=== PATIENT | female | born 1990 | race Caucasian/White ===

== ENCOUNTER 2016-09-16 21:12 | Emergency (ER) | payer OTHER ==
[2016-09-16 22:03] VITALS: BMI 26.6
[2016-09-16 22:07] VITALS: BP 124/82; RESP 16; TEMP 98.9
[2016-09-16 22:11] VITALS: PULSE 92; O2SAT 98
--- NOTE | 2016-09-16 22:47 | ED PDOC ---
Arrival/HPI <Alex Bruce - Last Filed: 09/16/16 23:11> - General Historian: Patient - History of Present Illness Time/Duration: 24 hours <Jaylan Hooks - Last Filed: 09/17/16 06:58> - General Chief Complaint: Cough, Cold, Congestion Time Seen by Provider: 09/16/16 21:57 - History of Present Illness Narrative History of Present Illness (Text): 09/16/16 22:43 26 y/o female presenting with complaints of sorethroat and fever. Patient states these symptoms started yesterday. Patient took her temperature this evening and reports a fever at 101F. She took Tylenol prior to arrival. Temperature here is 99F. Patient states her children at home are ill with similar symptoms. She denies upper respiratory complaints, GI symptoms, headache or urinary changes. (Jaylan Hooks) Past Medical History - Provider Review Nursing Documentation Reviewed: Yes - Infectious Disease Hx of Infectious Diseases: None - Tetanus Immunization Tetanus Immunization: Unknown - Cardiac Hx Cardiac Disorders: No - Pulmonary Hx Asthma: Yes - Neurological Hx Migraine: Yes - HEENT Hx HEENT Disorder: No - Renal Hx Renal Disorder: Yes Hx Kidney Stones: Yes (URINARY STENT PLACED AND REMOVED) - Endocrine/Metabolic Hx Endocrine Disorders: No - Hematological/Oncological Hx Blood Transfusions: No Hx Blood Transfusion Reaction: No - Integumentary Hx Dermatological Disorder: No - Musculoskeletal/Rheumatological Hx Falls: No - Gastrointestinal Hx Gall Bladder Disease: Yes (CHOLECYSTECTOMY) Hx Pancreatitis: Yes - Genitourinary/Gynecological Hx Genitourinary Disorders: No - Psychiatric Hx Psychophysiologic Disorder: No Hx Depression: No Hx Substance Use: No - Surgical History Hx Cholecystectomy: Yes Other/Comment: renal stents - Anesthesia Hx Anesthesia: Yes Hx Anesthesia Reactions: No Hx Malignant Hyperthermia: No - Suicidal Assessment Feels Threatened In Home Enviroment: No <Jaylan Hooks - Last Filed: 09/17/16 06:58> Family/Social History - Physician Review Nursing Documentation Reviewed: Yes Family/Social History: Unknown Family HX Smoking Status: Former Smoker Hx Alcohol Use: Yes (Socially) Hx Substance Use: No Hx Substance Use Treatment: No <Jaylan Hooks - Last Filed: 09/17/16 06:58> Allergies/Home Meds <Alex Bruce - Last Filed: 09/16/16 23:11> <Jaylan Hooks - Last Filed: 09/17/16 06:58> Allergies/Adverse Reactions: Allergies No Known Allergies Allergy (Verified 12/11/15 20:14) Home Medications: Home Meds Medication Instructions Recorded Confirmed Pnv#26/Iron Poly/FA/Dha 1 cap PO DAILY 07/12/16 07/12/16 [Vitafol-One Capsule] Review of Systems - Physician Review All systems were reviewed & negative as marked: Yes - Review of Systems Constitutional: Fevers. absent: Fatigue ENT: Sore Throat. absent: Rhinorrhea Respiratory: absent: SOB, Cough, Sputum Cardiovascular: absent: Chest Pain Gastrointestinal: absent: Abdominal Pain, Diarrhea, Nausea, Vomiting <Jaylan Hooks - Last Filed: 09/17/16 06:58> Physical Exam Vital Signs Reviewed: Yes Temperature: Afebrile Blood Pressure: Normal Pulse: Regular Respiratory Rate: Normal Appearance: Positive for: Well-Appearing, Non-Toxic Pain Distress: None Mental Status: Positive for: Alert and Oriented X 3 - Systems Exam Head: Present: Atraumatic, Normocephalic Pupils: Present: PERRL Extroacular Muscles: Present: EOMI Conjunctiva: Present: Normal Mouth: Present: Moist Mucous Membranes Pharnyx: Present: ERYTHEMA. No: EXUDATE Neck: Present: Normal Range of Motion, Lymphadenopathy Respiratory/Chest: Present: Clear to Auscultation, Good Air Exchange. No: Respiratory Distress Cardiovascular: Present: Regular Rate and Rhythm, Normal S1, S2 Abdomen: Present: Tenderness, Normal Bowel Sounds. No: Distention Upper Extremity: Present: Normal Inspection, Normal ROM, NORMAL PULSES. No: Cyanosis, Edema Lower Extremity: Present: Normal Inspection, NORMAL PULSES. No: Edema, CALF TENDERNESS Neurological: Present: GCS=15, CN II-XII Intact, Speech Normal Skin: Present: Warm, Dry. No: Rashes Psychiatric: Present: Alert, Oriented x 3, Normal Insight, Normal Concentration <Jaylan Hooks - Last Filed: 09/17/16 06:58> Vital Signs Temp Pulse Resp BP Pulse Ox 09/16/16 22:57 16 98 09/16/16 22:03 98.9 F 92 H 16 124/82 98 09/16/16 22:02 98.9 F 96 H 16 124/82 95 Medical Decision Making <Alex Bruce - Last Filed: 09/16/16 23:11> <Jaylan Hokos - Last Filed: 09/17/16 06:58> ED Course and Treatment: Impression: Pt was seen and evaluated with medical technologist generalist. Pt presented complaining of sore throat and fever since yesterday. Patient notes a home temperature of 101 F and reports she took Tylenol at home. Aware and agree with HPI, clinical findings, plan, and management. Plan: -- Reassess and disposition Progress Notes: On re-evaluation, the patient well-appearing, is in no acute distress. Discussed the results and plan with the patient, who expresses understanding. Patient in agreement with plan to discharged home. Patient is stable for discharge. Patient was instructed to follow up with physician/OBGYN/clinic in 1- 2 days or return if symptoms worsen or new concerning symptoms arise. (Alex Bruce) 09/16/16 22:49 26 y/o female at 5 months presents with pharyngitis. Patient is currently afebrile. She plans to f/u with her OB tomorrow. Will prescribe Amoxicillin 500mg q12 as empiric coverage for possible bacterial pharyngitis. Patient is advised to continue taking Tylenol as needed for fever and body aches. She will see her OB tomorrow for further evaluation. (Jaylan Hooks) - PA / PAEDIATRIC SURGEON / Resident Statement CARLOS has reviewed & agrees with the documentation as recorded. / has examined the patient and agrees with the treatment plan. <Alex Bruce - Last Filed: 09/16/16 23:11> Disposition/Present on Arrival <Alex Bruce - Last Filed: 09/16/16 23:11> - Present on Arrival Any Indicators Present on Arrival: No History of DVT/PE: No History of Uncontrolled Diabetes: No Urinary Catheter: No History of Decub. Ulcer: No History Surgical Site Infection Following: None - Disposition Have Diagnosis and Disposition been Completed?: Yes Disposition Time: 23:50 Patient Plan: Discharge <Jaylan Hooks - Last Filed: 09/17/16 06:58> - Disposition Diagnosis: Pharyngitis Disposition: HOME/ ROUTINE Patient Problems: Current Active Problems Problem Status Diagnosed Intractable abdominal pain Acute Condition: GOOD Discharge Instructions (ExitCare): Pharyngitis (ED) Additional Instructions: Please see your OB as soon as possible for routine care as well as for evaluation of current symptoms. Continue taking Tylenol every 6 hours as needed for fever, chills and body aches. You are prescribed an antibiotic called Amoxicillin which is safe in . Take this twice daily for 7 days. Consult your OB to see if he/she would like you to continue this medication. Prescriptions: Amoxicillin 500 mg PO Q12H #14 tablet
== END 2016-09-16 22:58 | disposition home or self-care (01) ==
LOC: ED 21:12
DX: J02.9 Acute pharyngitis, unspecified (principal)

== ENCOUNTER 2017-05-23 15:58 | Inpatient (IN) | payer OTHER ==
[2017-05-23 15:59] VITALS: BMI 26.6
--- NOTE | 2017-05-23 16:30 | ED PDOC ---
Arrival/HPI - General Chief Complaint: Weakness/Neurological Deficit Time Seen by Provider: 05/23/17 16:14 Historian: Patient - History of Present Illness Narrative History of Present Illness (Text): 05/23/17 16:26 A 27 year old female whose past medical history includes migraine headache, presents to the emergency department with 3 day duration right sided facial drooping and weakness. She also notes that she is experiencing a headache. The patient states that she has experienced these symptoms in that past, however it took her 6 months for the symptoms to resolve. The patient denies fevers, chills, dizziness, chest pain, shortness of breath, dyspnea on exertion, cough, abdominal pain, nausea, vomiting, diarrhea, back pain, neck pain, urinary/bowel changes, or any other complaint. D: [facility] Past Medical History - Provider Review Nursing Documentation Reviewed: Yes - Infectious Disease Hx of Infectious Diseases: None - Tetanus Immunization Tetanus Immunization: Unknown - Cardiac Hx Cardiac Disorders: No - Pulmonary Hx Asthma: Yes - Neurological Hx Migraine: Yes - HEENT Hx HEENT Disorder: No - Renal Hx Renal Disorder: Yes Hx Kidney Stones: Yes (URINARY STENT PLACED AND REMOVED) - Endocrine/Metabolic Hx Endocrine Disorders: No - Hematological/Oncological Hx Blood Disorders: No - Integumentary Hx Dermatological Disorder: No - Musculoskeletal/Rheumatological Hx Musculoskeletal Disorders: No - Gastrointestinal Hx Gall Bladder Disease: Yes (CHOLECYSTECTOMY) Hx Pancreatitis: Yes - Genitourinary/Gynecological Hx Genitourinary Disorders: No - Psychiatric Hx Psychophysiologic Disorder: No Hx Depression: No Hx Substance Use: No - Surgical History Hx Cholecystectomy: Yes Other/Comment: renal stents - Anesthesia Hx Anesthesia: Yes - Suicidal Assessment Feels Threatened In Home Enviroment: No Family/Social History - Physician Review Nursing Documentation Reviewed: Yes Family/Social History: No Known Family HX Smoking Status: Former Smoker Hx Alcohol Use: No (Socially) Hx Substance Use: No Hx Substance Use Treatment: No Allergies/Home Meds Allergies/Adverse Reactions: Allergies No Known Allergies Allergy (Verified 05/23/17 15:59) Home Medications: Home Meds Medication Instructions Recorded Confirmed No Known Home Med 05/23/17 05/23/17 Review of Systems - Physician Review All systems were reviewed & negative as marked: Yes Physical Exam Vital Signs Temp Pulse Resp BP Pulse Ox 05/23/17 16:01 99.1 F 94 H 16 122/83 100 Finger Stick Blood Glucose: 103 Medical Decision Making - RAD Interpretation Radiology Orders: 05/23/17 16:27 HEAD W/O (CODE STROKE) [CT] Stat Disposition/Present on Arrival - Present on Arrival History of DVT/PE: No History of Uncontrolled Diabetes: No Urinary Catheter: No History of Decub. Ulcer: No History Surgical Site Infection Following: None - Disposition Forms: [employer] (Czech)
--- NOTE | 2017-05-23 16:33 | ED PDOC ---
Arrival/HPI - General Chief Complaint: Weakness/Neurological Deficit Time Seen by Provider: 05/23/17 16:14 - History of Present Illness Narrative History of Present Illness (Text): 27yoF, hx of migraines who has had numbness/weakness symptoms in the past which took 6 mo to resolve, now with 3 days of migraine headache, right eye blurry vision/facial weakness/drooling/right sided upper/lower extremity weakness with associated photosensitivity. no n/v/dizziness/sob/chest pain/abd pain/pain with urination/drug use/thoughts to harm herself or others or hallucinations. 05/23/17 16:30 Past Medical History - Provider Review Nursing Documentation Reviewed: Yes - Travel History Have you recently traveled outside [place] w/in the past 3 mons?: No - Infectious Disease Hx of Infectious Diseases: None - Tetanus Immunization Tetanus Immunization: Unknown - Cardiac Hx Cardiac Disorders: No - Pulmonary Hx Asthma: Yes - Neurological Hx Migraine: Yes - HEENT Hx HEENT Disorder: No - Renal Hx Renal Disorder: Yes Hx Kidney Stones: Yes (URINARY STENT PLACED AND REMOVED) - Endocrine/Metabolic Hx Endocrine Disorders: No - Hematological/Oncological Hx Blood Disorders: No - Integumentary Hx Dermatological Disorder: No - Musculoskeletal/Rheumatological Hx Musculoskeletal Disorders: No - Gastrointestinal Hx Gall Bladder Disease: Yes (CHOLECYSTECTOMY) Hx Pancreatitis: Yes - Genitourinary/Gynecological Hx Genitourinary Disorders: No - Psychiatric Hx Psychophysiologic Disorder: No Hx Depression: No Hx Substance Use: No - Surgical History Hx Cholecystectomy: Yes Other/Comment: renal stents - Anesthesia Hx Anesthesia: Yes - Suicidal Assessment Feels Threatened In Home Enviroment: No Family/Social History Family/Social History: No Known Family HX Smoking Status: Former Smoker Hx Alcohol Use: No (Socially) Hx Substance Use: No Hx Substance Use Treatment: No Allergies/Home Meds Allergies/Adverse Reactions: Allergies No Known Allergies Allergy (Verified 05/23/17 15:59) Home Medications: Home Meds Medication Instructions Recorded Confirmed No Known Home Med 05/23/17 05/23/17 Review of Systems - Review of Systems Constitutional: Fatigue Eyes: Vision Changes, Photophobia ENT: Normal Respiratory: Normal Cardiovascular: Normal Gastrointestinal: Normal Genitourinary Female: Normal Musculoskeletal: Normal Skin: Normal Neurological: Headache, Focal Weakness, Speech Changes, Facial Droop Endocrine: Normal Hemo/Lymphatic: Normal Psychiatric: Normal Physical Exam Vital Signs Reviewed: Yes Vital Signs Temp Pulse Resp BP Pulse Ox 05/23/17 17:59 85 18 139/75 100 05/23/17 17:57 103 H 18 118/75 100 05/23/17 16:01 99.1 F 94 H 16 122/83 100 Temperature: Afebrile Blood Pressure: Normal Pulse: Regular Respiratory Rate: Normal Appearance: Positive for: Well-Appearing Pain Distress: None Mental Status: Positive for: Alert and Oriented X 3 Finger Stick Blood Glucose: 103 - Systems Exam Head: Present: Atraumatic, Normocephalic Pupils: Present: PERRL Extroacular Muscles: Present: EOMI Conjunctiva: Present: Normal Ears: Present: Normal Mouth: Present: Moist Mucous Membranes Pharnyx: Present: Normal Nose (External): Present: Atraumatic Nose (Internal): Present: Normal Inspection Neck: Present: Normal Range of Motion Respiratory/Chest: Present: Clear to Auscultation, Good Air Exchange Cardiovascular: Present: Regular Rate and Rhythm Abdomen: No: Tenderness, Distention, Normal Bowel Sounds, Peritoneal Signs, Rebound, Guarding, McBurney's Point Tender, Rovsing's Sign Present, Hernias, Feeding Tubes, Ostomy Tubes, Mass/Organomegaly, Scars, Other Back: Present: Normal Inspection Upper Extremity: Present: Other (see neuro) Lower Extremity: Present: Normal ROM, Other (see neuro) Neurological: Present: GCS=15, Other (right eye blurry, facial droop, drooling, right sided ue/le weakness vs left. wrinkles forhead on left.) Skin: Present: Warm, Normal Color Psychiatric: Present: Alert, Oriented x 3, Normal Insight, Normal Concentration Medical Decision Making ED Course and Treatment: CT head no acute ICH. left frontal lesion. 05/23/17 18:16 05/23/17 18:16 05/23/17 18:17: paged neurology CT HEAD WITHOUT CONTRAST. Creator : Celestine Womack MD Report Date : 05/23/2017 18:01:51 IMPRESSION: No acute intracranial hemorrhage. There is a elliptical shaped area of low attenuation in the left mid frontal subcortical white matter near the vertex that is not felt to represent artifact. Rule out acute infarct. See above discussion for additional diagnostic considerations including a demyelinating disease recommend further follow-up pre and post-contrast MRI of the brain. Note that these findings were discussed with Dr. Muñoz at approximately 5:55 p.m. with written down and read back verification. See above discussion for additional details and findings. 05/23/17 18:31 d/w Dr. Briggs neurology who stated admit, mri, give asprin 325mg. 05/23/17 19:48 d/w Dr. Medeiros who stated he doesn't see pt regularly can can admit to medical service thus discussed with Dr. Burgos who will admit telemetry and plan mri with dr. cummings neurology consultation. - Lab Interpretations Lab Results: 05/23/17 16:30 05/23/17 16:30 Lab Results 05/23/17 16:30: Beta HCG, Quant < 2.39 05/23/17 16:30: Blood Type B POSITIVE, Antibody Screen Negative, BBK History Checked Patient has bt 05/23/17 16:30: Sodium 141, Potassium 3.9, Chloride 106, Carbon Dioxide 23, Anion Gap 16, BUN 15, Creatinine 1.0, Est GFR ( Amer) > 60, Est GFR (Non- Af Amer) > 60, Random Glucose 82, Calcium 9.6, Total Bilirubin 0.3, AST 28, ALT 18, Alkaline Phosphatase 73, Troponin I < 0.01, Total Protein 8.3, Albumin 4.6, Globulin 3.6, Albumin/Globulin Ratio 1.3, Triglycerides 81, Cholesterol 140, LDL Cholesterol Direct 62, HDL Cholesterol 55 05/23/17 16:30: PT 14.9 H, INR 1.36 H, APTT 31.4 05/23/17 16:30: WBC 10.4, RBC 4.31, Hgb 10.8 L, Hct 34.3 L, MCV 79.6 L, MCH 25.1 , MCHC 31.5, RDW 14.1, Plt Count 413, MPV 9.1, Gran % 63.0, Lymph % (Auto) 25.5 , [place] % (Auto) 8.0 H, Eos % (Auto) 3.1, Baso % (Auto) 0.4, Gran # 6.59 H, Lymph # 2.7, [place] # 0.8 H, Eos # 0.3, Baso # 0.04 - RAD Interpretation Radiology Orders: 05/23/17 16:27 HEAD W/O CONTRAST [CT] Stat - EKG Interpretation EKG Interpretation (Text): 05/23/17 16:37 ECG: NSR, flipped t waves avr, v1, flattened iii. Interpreted by ED Physician: Yes - Medication Orders Current Medication Orders: Discontinued Medications Aspirin (Aspirin) 325 mg PO STAT STA Stop: 05/23/17 18:34 Last Admin: 05/23/17 18:54 Dose: 325 mg Morphine Sulfate (Morphine) 2 mg IVP STAT STA Stop: 05/23/17 17:05 Last Admin: 05/23/17 17:12 Dose: 2 mg MAR Pain Assessment Document 05/23/17 17:12 EW (Rec: 05/23/17 17:13 [facility] [id number]) Pain Reassessment Is this a pain reassessment? No Sleep Is patient sleeping during reassessment? No Presence of Pain Presence of Pain Yes Pain Scale Used Pain Scale Used Numeric Location Pain Location Body Water Pollution Scientist Description Description Constant Intensity of Pain at present 7 IVP Administration Document 05/23/17 17:12 EW (Rec: 05/23/17 17:13 [facility] [id number]) Charges for Administration # of IVP Administrations 1 Ondansetron HCl (Zofran Inj) 4 mg IVP STAT STA Stop: 05/23/17 17:05 Last Admin: 05/23/17 17:12 Dose: 4 mg IVP Administration Document 05/23/17 17:12 EWO (Rec: 05/23/17 17:12 [facility] [id number]) Charges for Administration # of IVP Administrations 1 NIHSS Stroke Scale 3 - Date/Time Evaluation Performed Date Performed: 05/23/17 Time Performed: 04:20 When Was NIHSS Performed: 24 hours post onset S/S - How Severe is the Stroke Level of Consciousness: 0=Alert LOC to Questions: 0=Both comments correct LOC to commands: 0=Obeys both correctly Best Gaze: 0=Normal Visual: 1=Partial hemianopia Facial: 1=Minor asymmetry Motor Arm - Left: 0=No drift Motor Arm - Right: 1=Drift noted before 10 sec Motor Leg - Left: 0=No drift Motor Leg - Right: 1=Drift before 5 sec Limb Ataxia: 1=Present Upper or Lower Sensory: 1=Mild to moderate loss Best Language: 0=No aphasia Dysarthia: 1=Mild to moderate slurring Extinction & Inattention (Neglect): 1=Partial neglect (mild bijal-attention) Score: 8 Disposition/Present on Arrival - Present on Arrival Any Indicators Present on Arrival: Yes History of DVT/PE: No History of Uncontrolled Diabetes: No Urinary Catheter: No History of Decub. Ulcer: No History Surgical Site Infection Following: None - Disposition Have Diagnosis and Disposition been Completed?: Yes Diagnosis: Weakness Disposition: HOSPITALIZED Disposition Time: 19:54 Patient Plan: Admission, Telemetry Condition: STABLE Discharge Instructions (ExitCare): Weakness (ED) Referrals: PCP,NO [Primary Care Provider] - Follow up with primary Forms: [employer] (Upper Sorbian)
[2017-05-23 16:42] LABS: BASO # 0.04 K/mm3 (0.0-2.0); BASO % 0.4 % (0.0-3.0); EOS # 0.3 (0.0-0.7); EOS % 3.1 % (1.5-5.0); GRAN # 6.59 (1.4-6.5); HEMATOCRIT 34.3 % (36.0-48.0); LYMPH # 2.7 (1.2-3.4); LYMPH % 25.5 % (22.0-35.0); MEAN CELL VOLUME 79.6 fl (80.0-105.0); MEAN CORPUSCULAR HEMOGLOBIN 25.1 pg (25.0-35.0); MEAN CORPUSCULAR HGB CONC 31.5 g/dl (31.0-37.0); MEAN PLATELET VOLUME 9.1 fl (7.0-11.0); MONO # 0.8 (0.1-0.6); RED CELL DISTRIBUTION WIDTH 14.1 % (11.5-14.5); WHITE BLOOD COUNT 10.4 10^3/ul (4.5-11.0)
[2017-05-23 16:52] LABS: INR 1.36 (0.93-1.08); PARTIAL THROMBOPLASTIN TIME 31.4 Seconds (25.1-36.5)
[2017-05-23] MEDS ORDERED: Morphine 2 mg/ml ISec IVP STA (17:04)
[2017-05-23 17:09] LABS: ALB/GLOB RATIO 1.3 (1.1-1.8); ALKALINE PHOSPHATASE 73 U/L (38-126); ALT/SGPT 18 U/L (7-56); AST/SGOT 28 U/L (14-36); BILIRUBIN,TOTAL 0.3 mg/dL (0.2-1.3); BLOOD UREA NITROGEN 15 mg/dL (7-21); CALCIUM 9.6 mg/dL (8.4-10.5); CARBON DIOXIDE 23 mmol/L (21-33); CHLORIDE 106 mmol/L (98-107); CHOLESTEROL 140 mg/dL (130-200); GFR AFRICAN-AMERICAN > 60; GLUCOSE,RANDOM 82 mg/dL (70-110); POTASSIUM 3.9 mmol/L (3.6-5.0); SODIUM 141 mmol/L (132-148); TOTAL PROTEIN 8.3 g/dL (5.8-8.3)
[2017-05-23 17:23] LABS: TROPONIN I < 0.01 ng/mL
--- NOTE | 2017-05-23 18:05 | CT ---
PROCEDURE: CT HEAD WITHOUT CONTRAST. HISTORY: 27 yo F, with right sided weakness COMPARISON: None available. TECHNIQUE: Axial computed tomography images were obtained through the head/brain without intravenous contrast. Radiation dose: Total exam DLP = 726.57 mGy-cm. This CT exam was performed using one or more of the following dose reduction techniques: Automated exposure control, adjustment of the mA and/or kV according to patient size, and/or use of iterative reconstruction technique. FINDINGS: HEMORRHAGE: No acute parenchymal, subarachnoid or extra-axial in intracranial hemorrhage. BRAIN: There is a vague area of low attenuation seen in the left frontal subcortical and the slightly deeper white matter which is of uncertain etiology though not felt to represent artifact. Rule out acute infarct however other etiologies such as post infectious/ inflammatory process including, encephalitis or demyelinating disease process to be excluded. Tumor would be less likely though not completely excluded. . Follow-up pre and post-contrast MRI of the brain recommended. There are no other definitive focal areas of abnormal attenuation seen throughout the remainder of the substance of the brain. Note also made of a tiny curvilinear radiopaque density in the left anterior frontal region seen on axial image # 28 that could represent artifact the possibility of a small developmental venous anomaly not excluded. Ventricular and sulcal size are within range of normal this patient's stated age. VENTRICLES: No obstructive hydrocephalus. CALVARIUM: There are no acute calvarial fractures. PARANASAL SINUSES: The visualized paranasal air complexes well-developed and currently well-aerated. MASTOID AIR CELLS: Unremarkable as visualized. No inflammatory changes. OTHER FINDINGS: None. IMPRESSION: No acute intracranial hemorrhage. There is a elliptical shaped area of low attenuation in the left mid frontal subcortical white matter near the vertex that is not felt to represent artifact. Rule out acute infarct. See above discussion for additional diagnostic considerations including a demyelinating disease recommend further follow-up pre and post-contrast MRI of the brain. Note that these findings were discussed with Dr. Muñoz at approximately 5:55 p.m. with written down and read back verification. See above discussion for additional details and findings. .
[2017-05-24] MEDS: Morphine 2 mg/ml ISec IVP PRN ×5 (05:18→23:40)
[2017-05-24 08:14] LABS: BASO # 0.05 K/mm3 (0.0-2.0); BASO % 0.5 % (0.0-3.0); EOS # 0.5 (0.0-0.7); EOS % 5.3 % (1.5-5.0); GRAN # 5.91 (1.4-6.5); GRAN % 64.4 % (50.0-68.0); HEMATOCRIT 32.4 % (36.0-48.0); MEAN CELL VOLUME 79.8 fl (80.0-105.0); MEAN CORPUSCULAR HEMOGLOBIN 24.6 pg (25.0-35.0); MEAN CORPUSCULAR HGB CONC 30.9 g/dl (31.0-37.0); MEAN PLATELET VOLUME 9.1 fl (7.0-11.0); MONO # 0.7 (0.1-0.6); MONO % 7.8 % (1.0-6.0); RED CELL DISTRIBUTION WIDTH 14.2 % (11.5-14.5); WHITE BLOOD COUNT 9.2 10^3/ul (4.5-11.0)
[2017-05-24 08:42] LABS: BLOOD UREA NITROGEN 12 mg/dL (7-21); CARBON DIOXIDE 23 mmol/L (21-33); CHLORIDE 109 mmol/L (98-107); GFR AFRICAN-AMERICAN > 60; GLUCOSE,RANDOM 88 mg/dL (70-110); POTASSIUM 4.1 mmol/L (3.6-5.0); SODIUM 140 mmol/L (132-148)
--- NOTE | 2017-05-24 11:59 | CP.PCM.HP ---
History of Present Illness - History of Present Illness History of Present Illness: CC: Slurred Speech and Right sided Weakness and Nubness: History of Present Illness: A 27yoF, hx of migraines who has had numbness/weakness symptoms in the past which took 6 mo to resolve, now with 3 days of migraine headache, right eye blurry vision/facial weakness/drooling/right sided upper/lower extremity weakness with associated photosensitivity. No n/v/dizziness/sob/chest pain/abd pain/pain with urination/drug use/thoughts to harm herself or others or hallucinations. Present on Admission - Present on Admission Any Indicators Present on Admission: No Review of Systems - Review of Systems All systems: reviewed and no additional remarkable complaints except Past Patient History - Infectious Disease Hx of Infectious Diseases: None - Tetanus Immunizations Tetanus Immunization: Unknown - Past Medical History & Family History Past Medical History?: Yes Pertinent Family History: Grand Mother - Possible CVA - Past Social History Smoking Status: Former Smoker Alcohol: None Drugs: Denies - CARDIAC Hx Cardiac Disorders: No - PULMONARY Hx Respiratory Disorders: Yes Hx Asthma: Yes - NEUROLOGICAL Hx Migraine: Yes - HEENT Hx HEENT Problems: No - RENAL Hx Chronic Kidney Disease: Yes (renal stent) - ENDOCRINE/METABOLIC Hx Endocrine Disorders: No - HEMATOLOGICAL/ONCOLOGICAL Hx Blood Disorders: No - INTEGUMENTARY Hx Dermatological Problems: No - MUSCULOSKELETAL/RHEUMATOLOGICAL Hx Falls: No - GASTROINTESTINAL Hx Gastrointestinal Disorders: Yes Hx Gastroesophageal Reflux: Yes Hx Pancreatitis: Yes - GENITOURINARY/GYNECOLOGICAL Hx Genitourinary Disorders: No - PSYCHIATRIC Hx Anxiety: Yes - SURGICAL HISTORY Hx Cholecystectomy: Yes - ANESTHESIA Hx Anesthesia: Yes Meds Allergies/Adverse Reactions: Allergies Allergy/AdvReac Type Severity Reaction Status Date / Time No Known Allergies Allergy Verified 05/23/17 15:59 Physical Exam - Constitutional Appears: Well, No Acute Distress - Head Exam Head Exam: ATRAUMATIC, NORMAL INSPECTION, NORMOCEPHALIC - Eye Exam Eye Exam: EOMI, Normal appearance, PERRL Pupil Exam: NORMAL ACCOMODATION, PERRL Additional comments: Right eye Blurry Vison - ENT Exam ENT Exam: Mucous Membranes Moist, Normal Exam - Neck Exam Neck exam: Positive for: Normal Inspection - Respiratory Exam Respiratory Exam: Clear to Auscultation Bilateral, NORMAL BREATHING PATTERN - Cardiovascular Exam Cardiovascular Exam: REGULAR RHYTHM, +S1, +S2 - GI/Abdominal Exam GI & Abdominal Exam: Normal Bowel Sounds, Soft. absent: Tenderness - Extremities Exam Extremities exam: Positive for: full ROM, normal capillary refill, normal inspection - Back Exam Back exam: FULL ROM, NORMAL INSPECTION. absent: CVA tenderness (L), CVA tenderness (R) - Neurological Exam Neurological exam: Alert, Motor Sensory Deficit, Oriented x3, Reflexes Normal Additional comments: Right VII Palsy Right UE 3-4/5, and Right LE 4/5 with Loss of Sensation to the Right UE. - Psychiatric Exam Psychiatric exam: Normal Affect, Normal Mood - Skin Skin Exam: Dry, Intact, Normal Color, Warm Results - Vital Signs Recent Vital Signs: Last Vital Signs Temp 98.6 F 05/24/17 06:00 Pulse 73 05/24/17 06:00 Resp 18 05/24/17 06:00 BP 100/64 05/24/17 06:00 Pulse Ox 97 05/24/17 06:00 - Labs Result Diagrams: 05/24/17 07:30 05/24/17 07:30 Labs: Laboratory Results - last 24 hr 05/24/17 05/24/17 07:30 07:30 WBC 9.2 RBC 4.06 Hgb 10.0 L Hct 32.4 L MCV 79.8 L MCH 24.6 L MCHC 30.9 L RDW 14.2 Plt Count 380 MPV 9.1 Gran % 64.4 Lymph % (Auto) 22.0 Stewart % (Auto) 7.8 H Eos % (Auto) 5.3 H Baso % (Auto) 0.5 Gran # 5.91 Lymph # 2.0 Stewart # 0.7 H Eos # 0.5 Baso # 0.05 Sodium 140 Potassium 4.1 Chloride 109 H Carbon Dioxide 23 Anion Gap 13 BUN 12 Creatinine 0.9 Est GFR ( Amer) > 60 Est GFR (Non-Af Amer) > 60 Random Glucose 88 Calcium 9.0 - Imaging and Cardiology CT scan - head Status: Report reviewed by me Additional comment: IMPRESSION: No acute intracranial hemorrhage. There is a elliptical shaped area of low attenuation in the left mid frontal subcortical white matter near the vertex that is not felt to represent artifact. Rule out acute infarct. See above discussion for additional diagnostic considerations including a demyelinating disease recommend further follow-up pre and post-contrast MRI of the brain. Note that these findings were discussed with Dr. Muñoz at approximately 5:55 p.m. with written down and read back verification. Assessment & Plan (1) Hemiparesis Assessment and Plan: Due to MS Vs CVA Vs Complicated Migraine Blurry Vision R/O Optic Neuritis H/O Similar Episode in the Past Continue ASA MRI Brain with/Without IV Contrast Carotid Doppler and TTE Neurocheck Neurology Consulted Status: Acute Priority: High
[2017-05-24] MEDS ORDERED: Gadodiamide 287 MG/ML VIAL (15ML) IV ONE (12:57)
--- NOTE | 2017-05-24 15:13 | MRI ---
PROCEDURE: MRI brain dated 05/24/2017 HISTORY: Right hemiparesis. COMPARISON: Comparison made with prior CT scan brain dated 05/23/2017. TECHNIQUE: Multi planar,, multisequence MR images of the brain were obtained with and without intravenous contrast enhancement. . FINDINGS: No acute parenchymal, subarachnoid or extra-axial hemorrhage. There are multiple on focal areas most of which are located within the most of the periventricular and deep white matter of left cerebral hemisphere with a more discrete area of restricted diffusion in the left posterior superior frontal subcortical region near the vertex. . Less numerous faint foci of restricted diffusion also seen within the white matter right cerebral hemisphere. Additionally, few faint areas of increased T2 signal are present within both basal nuclei, old right cerebellar and left middle cerebellar peduncle. . Findings may in part represent shine through type artifact. These lesions are consistent with a demyelinating disease process such as multiple sclerosis. The largest lesion in the left posterior superior frontal subcortical white matter exhibits incomplete irregular peripheral rim enhancement consistent with a tumefactive plaque. Several additional smaller lesions in the deep white matter left cerebral hemisphere also exhibit incomplete peripheral thin rim enhancement as well consistent with active demyelination. . Note also that several lesions bilaterally exhibit T1 black hole appearance. No evidence of abnormal meningeal enhancement. No obstructive hydrocephalus. Visualized major vascular flow voids at skull base patent. No gross calvarial abnormalities The visualized paranasal and mastoid air complexes well-developed and currently well-aerated. IMPRESSION: Findings are consistent with multiple sclerosis. The largest lesion located in the left posterior superior frontal subcortical white matter exhibits incomplete irregular peripheral rim enhancement consistent with a tumefactive MS plaque. Several additional smaller lesions in the deep white matter left cerebral hemisphere also exhibit incomplete peripheral thin rim enhancement as well consistent with active demyelination. . Lesions in the right cerebral hemisphere none demonstrate no discernible contrast enhancement. Few nonenhancing lesions both basal nuclei, right cerebellum and left middle cerebellar peduncle The note also that the several of these lesions on bilaterally exhibit T1 black hole appearance. Findings on discussed with Dr Burgos at approximately 2:50 p.m. with written down and back verification.
[2017-05-24] MEDS: methylPREDNISolone 1 GM in Sodium Chloride 0.9% 250 ML IV SCH (18:00)
--- NOTE | 2017-05-24 20:08 | CARD ---
APPROVED REPORT EKG Measurement Heart [id number] <Conclusion> Normal sinus rhythm Minimal voltage criteria for LVH, may be normal variant Borderline ECG
--- NOTE | 2017-05-25 01:31 | CON ---
DATE: 05/24/2017 HISTORY OF PRESENT ILLNESS: This is a 27-year-old female with past medical history of migraine headaches, came with slurring of the speech and numbness of the right side of the face and headaches. The patient has migraine headache of 3 days and right eye blurring of vision associated with photosensitivity. No nausea, no vomiting. Called to evaluate the patient. PAST MEDICAL HISTORY: As above, status post stents in the kidney because of the renal stone, also GERD, and anxiety. ALLERGIES: NO KNOWN DRUG ALLERGIES. PHYSICAL EXAMINATION HEENT: Normocephalic, atraumatic. NECK: Supple. NEUROLOGIC: Alert, awake, and oriented x3. No aphasia. Cranial nerves II through XII are tested. Pupils equal and reactive. EOM intact. Visual gonsalez, full. No facial asymmetry. Tongue is midline. Motor examination: Moves all the extremities equally. Tone normal. Deep tendon reflexes 1+. Both plantars are downgoing. Sensory appears intact. Cerebellar and gait, deferred. IMPRESSION: Possibly migraine headache. Headache is under control, and workup is in progress. Patient had an MRI. We will follow up the results. Christoph Boston MD
[2017-05-25] MEDS: Morphine 2 mg/ml ISec IVP PRN ×4 (03:16→20:22)
[2017-05-25] MEDS: Enoxaparin 40 mg Syringe SC SCH ×2 (08:37→10:18)
--- NOTE | 2017-05-25 13:15 | US ---
PROCEDURE: Bilateral carotid artery duplex ultrasound HISTORY: Carotid stenosis CVA PHYSICIAN(S): Raymundo Ulloa MD. TECHNIQUE: Duplex sonography and color-flow Doppler were used to evaluate the carotid bifurcations and limited segments of the vertebral arteries bilaterally. FINDINGS: There is minimal intimal thickening noted at the carotid bifurcations bilaterally. The peak systolic velocity in the proximal right internal carotid artery is 75 cm/sec. This corresponds to a 0-19 percent proximal right ICA stenosis. Normal systolic velocities are noted in the proximal right external carotid artery. There is antegrade flow in the right vertebral artery. The peak systolic velocity in the proximal left internal carotid artery is 92 cm/sec. This corresponds to a 0-19 percent proximal left ICA stenosis. Normal systolic velocities are noted in the proximal left external carotid artery. There is antegrade flow in the left vertebral artery. IMPRESSION: 1. Bilateral 0-19 percent proximal ICA stenoses. 2. Antegrade flow in both vertebral arteries.
--- NOTE | 2017-05-25 14:03 | CARD ---
APPROVED REPORT EKG Measurement Heart [id number] <Conclusion> Sinus tachycardia Moderate voltage criteria for LVH, may be normal variant Borderline ECG
--- NOTE | 2017-05-25 14:20 | CP.PCM.PN ---
<Lyudmila Walsh - Last Filed: 05/25/17 17:51> Subjective - Date & Time of Evaluation Date of Evaluation: 05/25/17 Time of Evaluation: 09:00 - Subjective Subjective: PGY-2 Neurology progress note for Dr. Boston'ss ervice Patient seen and examined at bedside, no acute distress. Patient states that she continues to have numbness onthe left side of her face and in her left arm. She states she also continues to have a headache. Objective - Vital Signs/Intake and Output Vital Signs (last 24 hours): Temp Pulse Resp BP Pulse Ox 98.3 F 99 H 20 117/60 96 05/25/17 13:39 05/25/17 13:39 05/25/17 13:39 05/25/17 13:39 05/25/17 06:00 Intake and Output: 05/25/17 05/25/17 06:59 18:59 Intake Total 360 240 Output Total 1500 Balance -1140 240 - Medications Medications: Current Medications Aspirin (Aspirin) 325 mg PO DAILY [facility] Last Admin: 05/25/17 08:41 Dose: 325 mg Enoxaparin Sodium (Lovenox) 40 mg SC DAILY [facility] PRN Reason: Protocol Last Admin: 05/25/17 08:37 Dose: 40 mg Methylprednisolone 1 gm/ (Sodium Chloride) 250 mls @ 500 mls/hr IV DAILY [facility] Stop: 05/26/17 10:29 Last Admin: 05/24/17 18:00 Dose: 500 mls/hr Ketorolac Tromethamine (Toradol) 15 mg IM Q6 PRN PRN Reason: Pain, moderate (4-7) Stop: 05/29/17 00:34 Morphine Sulfate (Morphine) 2 mg IVP Q4H PRN PRN Reason: Pain, severe (8-10) Last Admin: 05/25/17 13:16 Dose: 2 mg Pantoprazole Sodium (Protonix Inj) 40 mg IVP DAILY [facility] Last Admin: 05/25/17 08:36 Dose: 40 mg - Labs Labs: 05/24/17 07:30 05/24/17 07:30 PT 14.9 SECONDS (9.4-12.5) H 05/23/17 16:30 INR 1.36 (0.93-1.08) H 05/23/17 16:30 APTT 31.4 Seconds (25.1-36.5) 05/23/17 16:30 - Constitutional Appears: No Acute Distress - Head Exam Head Exam: ATRAUMATIC, NORMAL INSPECTION, NORMOCEPHALIC - Eye Exam Eye Exam: EOMI, Normal appearance - Respiratory Exam Respiratory Exam: Clear to Ausculation Bilateral, NORMAL BREATHING PATTERN - Cardiovascular Exam Cardiovascular Exam: REGULAR RHYTHM - Neurological Exam Neurological Exam: Alert, Awake, CN II-XII Intact, Oriented x3 Neuro motor strength exam: Left Upper Extremity: 5, Right Upper Extremity: 5, Left Lower Extremity: 5, Right Lower Extremity: 5 Additional comments: decreased sensation the left face and left arm - Skin Skin Exam: Dry, Intact, Normal Color, Warm Assessment and Plan - Assessment and Plan (Free Text) Assessment: 27 yo female with PMH of migraine headaches presents with numbness on the left side of her face and arm as well as headache possibly due to MS 1. MS - CT head was negative - MRI findings consistent with MS - will order MRI of cervical and thoracic spine - continue 1 g solu-medrol for 3 days - TSH ordered - will order vit D, TK antibody, and TB quantiferon - will start gabapentin 300 HS - will need follow up neurology outpatient for disease modifying therapy Case reviewed and discussed with attending <Leon Boston - Last Filed: 05/25/17 17:56> Objective - Vital Signs/Intake and Output Vital Signs (last 24 hours): Temp Pulse Resp BP Pulse Ox 98.3 F 99 H 20 117/60 96 05/25/17 13:39 05/25/17 13:39 05/25/17 13:39 05/25/17 13:39 05/25/17 06:00 Intake and Output: 05/25/17 05/25/17 06:59 18:59 Intake Total 360 990 Output Total 1500 Balance -1140 990 - Medications Medications: Current Medications Aspirin (Aspirin) 325 mg PO DAILY [facility] Last Admin: 05/25/17 10:00 Dose: Not Given Enoxaparin Sodium (Lovenox) 40 mg SC DAILY [facility] PRN Reason: Protocol Last Admin: 05/25/17 10:18 Dose: Not Given Gabapentin (Neurontin) 300 mg PO HS [facility] PRN Reason: Protocol Methylprednisolone 1 gm/ (Sodium Chloride) 250 mls @ 500 mls/hr IV DAILY [facility] Stop: 05/26/17 10:29 Last Admin: 05/24/17 18:00 Dose: 500 mls/hr Ketorolac Tromethamine (Toradol) 15 mg IM Q6 PRN PRN Reason: Pain, moderate (4-7) Stop: 05/29/17 00:34 Last Admin: 05/25/17 17:15 Dose: 15 mg Morphine Sulfate (Morphine) 2 mg IVP Q4H PRN PRN Reason: Pain, severe (8-10) Last Admin: 05/25/17 13:16 Dose: 2 mg Pantoprazole Sodium (Protonix Inj) 40 mg IVP DAILY [facility] Last Admin: 05/25/17 10:22 Dose: Not Given - Labs Labs: 05/24/17 07:30 05/24/17 07:30 PT 14.9 SECONDS (9.4-12.5) H 05/23/17 16:30 INR 1.36 (0.93-1.08) H 05/23/17 16:30 APTT 31.4 Seconds (25.1-36.5) 05/23/17 16:30 Attending/Attestation - Attestation I have personally seen and examined this patient.: Yes I have fully participated in the care of the patient.: Yes I have reviewed all pertinent clinical information, including history, physical exam and plan: Yes
--- NOTE | 2017-05-25 18:41 | MRI ---
PROCEDURE: MRI of the cervical spine dated 05/25/2017. HISTORY: Multiple sclerosis COMPARISON: No prior study available for comparison TECHNIQUE: Multiecho multiplanar sequences were performed through the cervical spine without the use of intravenous contrast. FINDINGS: The current study reveals no acute compression fractures no retropulsed fragments. Vertebral bodies exhibit relatively normal stature. There is mid kyphotic angulation seen at the C3-C4 level however the remaining vertebral bodies otherwise exhibit normal alignment. Facets normally aligned. There are vague areas of increased T2 signal is seen within the ventral half of the cervical spinal cord at the C2 and C3 level which are seen to best advantage on sagittal T1 and STIR sequence. There is another vague area seen in the ventral surface of the cord at approximately C5 level which is only seen on sagittal STIR sequence. . These changes could represent some Us type artifact however though could conceivably represent the demyelinating plaque changes. . . Minor multilevel degenerative spondylosis. At the C2-C3 level, there is mild age related disc desiccation. Disc space height maintained. No disc herniation or significant disc bulge. Facet joints slightly overgrown left greater than right. Central canal and exit foramina are adequate. At the C3-C4 level, there is disc desiccation and mild anterior disc space narrowing. Small central and bilateral disc bulge ridge complex indents the ventral surface of the thecal sac nearly reaching but not significantly compressing the ventral surface the cord. The overall central canal is slightly narrowed. Facets are minimally overgrown. Very minor degenerative squaring of the left uncovertebral joint. Exit foramina are adequate. At the C4-C5 level, there is minor on age related disc desiccation and mild disc space narrowing. . Small central and bilateral bulge of the posterior annulus indents the ventral surface of the thecal sac though does not cause any canal stenosis nor cord compression. Exit foramina appear adequate despite slightly overgrown facets left greater than right. At the C5-C6 level, there is mild age related disc desiccation. Minimal bulge of the posterior annulus. Central canal appears adequate. Facets are slightly prominent more so on the right side. Exit foramina adequate. Similar changes seen at the C6-C7 level. IMPRESSION: There are subtle areas of increased T2 signal seen within the ventral aspect of the spinal cord as detailed above. Changes are nonspecific though could conceivably represent Us type artifact however the possibility of demyelinating plaque changes cannot be excluded. Multilevel degenerative spondylosis as detailed above. . No acute fractures.
--- NOTE | 2017-05-25 19:20 | CARD ---
APPROVED REPORT EXAM: Two-dimensional and M-mode echocardiogram with Doppler and color Doppler. INDICATION CVA/TIA 2D DIMENSIONS Left Atrium (2D)4.3 (1.6-4.0cm)IVSd0.6 (0.7-1.1cm) LVDd4.3 (3.9-5.9cm)PWd0.8 (0.7-1.1cm) LVDs2.8 (2.5-4.0cm)FS (%) 34.4 % LVEF (%)63.8 (>50%) M-Mode DIMENSIONS Aortic Root2.80 (2.2-3.7cm)Aortic Cusp Exc.1.70 (1.5-2.0cm) Aortic Valve AoV Peak Guhmauih292.0cm/Felipe Peak GR.12mmHgLVOT Peak Grquewlz477.0cm/s LVOT VTI23.70cm Mitral Valve MV E Nllpztzx625.0cm/sMV A Sdugbppp42.8cm/sE/A ratio1.1 TDI Lateral E' Peak V14.90cm/sMedial E' Peak V10.70cm/sE/Lateral E'6.8 E/Medial E'9.4 Pulmonary Valve PV Peak Nmovzbym627.0cm/sPV Peak Grad.4mmHg Tricuspid Valve TR Peak [id number]/sRAP [id number] Peak Gr.33mmHg [id number] LEFT VENTRICLE The left ventricle is normal size. There is normal left ventricular wall thickness. The left ventricular function is normal. The left ventricular ejection fraction is within the normal range. There is normal LV segmental wall motion. Transmitral Doppler flow pattern is Grade I-abnormal relaxation pattern. RIGHT VENTRICLE The right ventricle is normal size. There is normal right ventricular wall thickness. The right ventricular systolic function is normal. ATRIA The left atrium is mildly dilated. The right atrium is mildly dilated. AORTIC VALVE The aortic valve is mildly thickened. No aortic regurgitation is present. MITRAL VALVE The mitral valve is mildly thickened. Mitral regurgitation is mild. TRICUSPID VALVE There is mild pulmonary hypertension. GREAT VESSELS The aortic root is normal in size. PERICARDIAL EFFUSION There is no pericardial effusion. <Conclusion> The left ventricle is normal size. There is normal left ventricular wall thickness. The left ventricular function is normal. The left ventricular ejection fraction is within the normal range. There is normal LV segmental wall motion. Transmitral Doppler flow pattern is Grade I-abnormal relaxation pattern. Mitral regurgitation is mild. There is mild pulmonary hypertension.
[2017-05-25] MEDS: methylPREDNISolone 1 GM in Sodium Chloride 0.9% 250 ML IV SCH (23:00)
--- NOTE | 2017-05-25 23:00 | CP.PCM.PN ---
Subjective - Date & Time of Evaluation Date of Evaluation: 05/25/17 Time of Evaluation: 12:00 - Subjective Subjective: Seen and examined at the bed side. FAther at the bed side. Informed the patient about the diagnosis. C/O Speech has declined this morning and as per the patient was not able to speak. LEWIS was not well controlled despite Morphine IV, and IV Toradol added to control the pain. Neurologist recommended to add Neurontin. Objective - Vital Signs/Intake and Output Vital Signs (last 24 hours): Temp Pulse Resp BP Pulse Ox 97 F L 98 H 20 106/61 93 L 05/25/17 18:00 05/25/17 18:00 05/25/17 18:00 05/25/17 18:00 05/25/17 18:00 Intake and Output: 05/25/17 05/26/17 18:59 06:59 Intake Total 990 Balance 990 - Medications Medications: Current Medications Aspirin (Aspirin) 325 mg PO DAILY [facility] Last Admin: 05/25/17 10:00 Dose: Not Given Docusate Sodium (Colace) 100 mg PO BID [facility] Last Admin: 05/25/17 21:19 Dose: 100 mg Enoxaparin Sodium (Lovenox) 40 mg SC DAILY [facility] PRN Reason: Protocol Last Admin: 05/25/17 10:18 Dose: Not Given Gabapentin (Neurontin) 300 mg PO HS [facility] PRN Reason: Protocol Last Admin: 05/25/17 21:19 Dose: 300 mg Methylprednisolone 1 gm/ (Sodium Chloride) 250 mls @ 500 mls/hr IV DAILY [facility] Stop: 05/26/17 10:29 Last Admin: 05/24/17 18:00 Dose: 500 mls/hr Ketorolac Tromethamine (Toradol) 15 mg IM Q6 PRN PRN Reason: Pain, moderate (4-7) Stop: 05/29/17 00:34 Last Admin: 05/25/17 17:15 Dose: 15 mg Morphine Sulfate (Morphine) 2 mg IVP Q4H PRN PRN Reason: Pain, severe (8-10) Last Admin: 05/25/17 20:22 Dose: 2 mg Pantoprazole Sodium (Protonix Inj) 40 mg IVP DAILY [facility] Last Admin: 05/25/17 10:22 Dose: Not Given - Labs Labs: 05/24/17 07:30 05/24/17 07:30 PT 14.9 SECONDS (9.4-12.5) H 05/23/17 16:30 INR 1.36 (0.93-1.08) H 05/23/17 16:30 APTT 31.4 Seconds (25.1-36.5) 05/23/17 16:30 - Constitutional Appears: In Acute Distress - Head Exam Head Exam: ATRAUMATIC, NORMAL INSPECTION, NORMOCEPHALIC - Eye Exam Eye Exam: EOMI, PERRL Pupil Exam: NORMAL ACCOMODATION, PERRL Additional comments: Right Facial Droop - ENT Exam ENT Exam: Mucous Membranes Moist, Normal Exam - Neck Exam Neck Exam: Full ROM, Normal Inspection. absent: Lymphadenopathy - Respiratory Exam Respiratory Exam: Clear to Ausculation Bilateral, NORMAL BREATHING PATTERN - Cardiovascular Exam Cardiovascular Exam: REGULAR RHYTHM, +S1, +S2. absent: Murmur - GI/Abdominal Exam GI & Abdominal Exam: Soft, Normal Bowel Sounds. absent: Tenderness - Extremities Exam Extremities Exam: Normal Capillary Refill, Normal Inspection. absent: Calf Tenderness, Joint Swelling, Pedal Edema - Back Exam Back Exam: NORMAL INSPECTION. absent: CVA tenderness (L), CVA tenderness (R) - Neurological Exam Neurological Exam: Alert, Awake, Motor Sensory Deficit, Oriented x3 Neuro motor strength exam: Left Upper Extremity: 5, Right Upper Extremity: 3, Left Lower Extremity: 5, Right Lower Extremity: 4 Additional comments: Slurred speech - Psychiatric Exam Psychiatric exam: Anxious - Skin Skin Exam: Dry, Intact, Normal Color, Warm - Additional Findings Additional findings: MRI Brain with/Without Contrast: IMPRESSION : Findings are consistent with multiple sclerosis. The largest lesion located in the left posterior superior frontal subcortical white matter exhibits incomplete irregular peripheral rim enhancement consistent with a tumefactive MS plaque. Several additional smaller lesions in the deep white matter left cerebral hemisphere also exhibit incomplete peripheral thin rim enhancement as well consistent with active demyelination. . Lesions in the right cerebral hemisphere none demonstrate no discernible contrast enhancement. Few nonenhancing lesions both basal nuclei, right cerebellum and left middle cerebellar peduncle The note also that the several of these lesions on bilaterally exhibit T1 black hole appearance. Assessment and Plan (1) Multiple sclerosis Assessment & Plan: Right Hemiparesis Blurry Vision LEWIS CT head was negative MRI findings consistent with MS MRI of cervical and thoracic spine Continue 1 g solu-medrol for 3 days TSH ordered Vit D, TK antibody, and TB quantiferon Gabapentin 300 HS Neurologist onboard D/W the patient and her father about the diagnoses and addressed their Questions and concerns. D/w the Neurologist about the plan POC. Status: Acute
[2017-05-26] MEDS: Morphine 2 mg/ml ISec IVP PRN ×6 (01:01→23:55)
[2017-05-26 07:24] LABS: BASO # 0.01 K/mm3 (0.0-2.0); GRAN # 22.78 (1.4-6.5); HEMATOCRIT 29.8 % (36.0-48.0); LYMPH # 1.2 (1.2-3.4); LYMPH % 4.6 % (22.0-35.0); MEAN CELL VOLUME 78.2 fl (80.0-105.0); MEAN CORPUSCULAR HEMOGLOBIN 24.9 pg (25.0-35.0); MEAN CORPUSCULAR HGB CONC 31.9 g/dl (31.0-37.0); MONO # 1.4 (0.1-0.6); MONO % 5.4 % (1.0-6.0); PLATELET COUNT 381 10^3/uL (120.0-450.0); RED CELL DISTRIBUTION WIDTH 14.3 % (11.5-14.5)
[2017-05-26 07:34] LABS: WHITE BLOOD COUNT 25.3 10^3/ul (4.5-11.0)
[2017-05-26 07:47] LABS: SODIUM 141 mmol/L (132-148)
[2017-05-26 07:53] LABS: BLOOD UREA NITROGEN 22 mg/dL (7-21); CALCIUM 9.5 mg/dL (8.4-10.5); CARBON DIOXIDE 23 mmol/L (21-33); CHLORIDE 107 mmol/L (98-107); GFR AFRICAN-AMERICAN > 60; GLUCOSE,RANDOM 122 mg/dL (70-110)
[2017-05-26 08:38] LABS: ATYPICAL LYMPHOCYTE 2 % (0.0-0.0); BAND 2 % (0-2); NEUTROPHIL 89 % (50.0-70.0); PLATELET ESTIMATE NORMAL (NORMAL)
[2017-05-26 08:39] LABS: ANISOCYTOSIS 1+; HYPOCHROMIA 1+; LARGE PLATELETS PRESENT; MICROCYTOSIS 1+
[2017-05-26] MEDS: Enoxaparin 40 mg Syringe SC SCH (09:59)
--- NOTE | 2017-05-26 10:27 | CP.PCM.PN ---
<Lyudmila Walsh - Last Filed: 05/26/17 17:12> Subjective - Date & Time of Evaluation Date of Evaluation: 05/26/17 Time of Evaluation: 09:00 - Subjective Subjective: PGY-2 Neurology progress note for Dr. Boston's service Patient seen and examined at bedside, no acute distress. Patient states that she has the headache intermittently and she gets a pain down her arm. She states the morphine helps but only for a short amount of time. Objective - Vital Signs/Intake and Output Vital Signs (last 24 hours): Temp Pulse Resp BP Pulse Ox 98.3 F 99 H 18 118/58 L 98 05/26/17 05:58 05/26/17 05:58 05/26/17 05:58 05/26/17 05:58 05/26/17 05:58 Intake and Output: 05/26/17 05/26/17 06:59 18:59 Intake Total 300 Balance 300 - Medications Medications: Current Medications Aspirin (Aspirin) 325 mg PO DAILY [facility] Last Admin: 05/26/17 09:57 Dose: 325 mg Docusate Sodium (Colace) 100 mg PO BID [facility] Last Admin: 05/26/17 09:57 Dose: 100 mg Enoxaparin Sodium (Lovenox) 40 mg SC DAILY [facility] PRN Reason: Protocol Last Admin: 05/26/17 09:59 Dose: 40 mg Gabapentin (Neurontin) 300 mg PO HS [facility] PRN Reason: Protocol Last Admin: 05/25/17 21:19 Dose: 300 mg Methylprednisolone 1 gm/ (Sodium Chloride) 250 mls @ 500 mls/hr IV DAILY [facility] Stop: 05/26/17 10:29 Last Admin: 05/25/17 23:00 Dose: Not Given Ketorolac Tromethamine (Toradol) 15 mg IM Q6 PRN PRN Reason: Pain, moderate (4-7) Stop: 05/29/17 00:34 Last Admin: 05/25/17 17:15 Dose: 15 mg Morphine Sulfate (Morphine) 2 mg IVP Q4H PRN PRN Reason: Pain, severe (8-10) Last Admin: 05/26/17 10:00 Dose: 2 mg Pantoprazole Sodium (Protonix Inj) 40 mg IVP DAILY [facility] Last Admin: 05/26/17 10:01 Dose: 40 mg - Labs Labs: 05/26/17 07:00 05/26/17 07:00 PT 14.9 SECONDS (9.4-12.5) H 05/23/17 16:30 INR 1.36 (0.93-1.08) H 05/23/17 16:30 APTT 31.4 Seconds (25.1-36.5) 05/23/17 16:30 - Constitutional Appears: Well, No Acute Distress - Head Exam Head Exam: ATRAUMATIC, NORMAL INSPECTION, NORMOCEPHALIC - Eye Exam Eye Exam: EOMI, Normal appearance - ENT Exam ENT Exam: Mucous Membranes Moist - Respiratory Exam Respiratory Exam: NORMAL BREATHING PATTERN. absent: Respiratory Distress - Cardiovascular Exam Cardiovascular Exam: REGULAR RHYTHM. absent: Tachycardia, Murmur - Neurological Exam Neurological Exam: Alert, Awake, Oriented x3 Neuro motor strength exam: Left Upper Extremity: 5, Right Upper Extremity: 5, Left Lower Extremity: 5, Right Lower Extremity: 5 - Skin Skin Exam: Dry, Intact, Normal Color, Warm Assessment and Plan - Assessment and Plan (Free Text) Assessment: 27 yo female with PMH of migraine headaches presents with numbness on the left side of her face and arm as well as headache possibly due to MS 1. MS 2. leukocytosis probably due to high dose steroids - CT head was negative - MRI findings consistent with MS - MRI of cervical spine showed possible demylination within ventral aspect of spinal cord - continue 1 g solu-medrol for 3 days, day she will receive 2nd dose - TSH is low will need thyroid profile - sha negative, ESR low - vit D low, start supplementation 5,000 iu daily - TK antibody, and TB quantiferon pending - continue gabapentin 300 HS - PT/OT - discussed with patient the need follow up neurology outpatient for disease modifying therapy, Case reviewed and discussed with attending <Leon Boston - Last Filed: 05/26/17 18:05> Objective - Vital Signs/Intake and Output Vital Signs (last 24 hours): Temp Pulse Resp BP Pulse Ox 98.1 F 114 H 18 117/62 94 L 05/26/17 12:00 05/26/17 14:00 05/26/17 12:00 05/26/17 12:00 05/26/17 09:00 Intake and Output: 05/26/17 05/26/17 06:59 18:59 Intake Total 300 Balance 300 - Medications Medications: Current Medications Aspirin (Aspirin) 325 mg PO DAILY [facility] Last Admin: 05/26/17 09:57 Dose: 325 mg Cholecalciferol (Vitamin D) 5,000 iu PO DAILY [facility] Docusate Sodium (Colace) 100 mg PO BID [facility] Last Admin: 05/26/17 17:16 Dose: 100 mg Enoxaparin Sodium (Lovenox) 40 mg SC DAILY [facility] PRN Reason: Protocol Last Admin: 05/26/17 09:59 Dose: 40 mg Gabapentin (Neurontin) 300 mg PO HS [facility] PRN Reason: Protocol Last Admin: 05/25/17 21:19 Dose: 300 mg Ketorolac Tromethamine (Toradol) 15 mg IM Q6 PRN PRN Reason: Pain, moderate (4-7) Stop: 05/29/17 00:34 Last Admin: 05/25/17 17:15 Dose: 15 mg Morphine Sulfate (Morphine) 2 mg IVP Q4H PRN PRN Reason: Pain, severe (8-10) Last Admin: 05/26/17 14:26 Dose: 2 mg Pantoprazole Sodium (Protonix Inj) 40 mg IVP DAILY [facility] Last Admin: 05/26/17 10:01 Dose: 40 mg - Labs Labs: 05/26/17 07:00 05/26/17 07:00 PT 14.9 SECONDS (9.4-12.5) H 05/23/17 16:30 INR 1.36 (0.93-1.08) H 05/23/17 16:30 APTT 31.4 Seconds (25.1-36.5) 05/23/17 16:30 Attending/Attestation - Attestation I have personally seen and examined this patient.: Yes I have fully participated in the care of the patient.: Yes I have reviewed all pertinent clinical information, including history, physical exam and plan: Yes
[2017-05-26 10:46] LABS: FREE T4 1.18 ng/dL (0.78-2.19)
[2017-05-26 10:48] LABS: THYROID STIMULATING HORMONE 0.35 mIU/mL (0.46-4.68)
[2017-05-26] MEDS: methylPREDNISolone 1 GM in Sodium Chloride 0.9% 250 ML IV SCH (10:50)
--- NOTE | 2017-05-26 18:05 | CP.PCM.PN ---
Subjective - Date & Time of Evaluation Date of Evaluation: 05/26/17 Time of Evaluation: 09:30 Objective - Vital Signs/Intake and Output Vital Signs (last 24 hours): Temp Pulse Resp BP Pulse Ox 98.1 F 114 H 18 117/62 94 L 05/26/17 12:00 05/26/17 14:00 05/26/17 12:00 05/26/17 12:00 05/26/17 09:00 Intake and Output: 05/26/17 05/26/17 06:59 18:59 Intake Total 300 Balance 300 - Medications Medications: Current Medications Aspirin (Aspirin) 325 mg PO DAILY [facility] Last Admin: 05/26/17 09:57 Dose: 325 mg Cholecalciferol (Vitamin D) 5,000 iu PO DAILY [facility] Docusate Sodium (Colace) 100 mg PO BID [facility] Last Admin: 05/26/17 17:16 Dose: 100 mg Enoxaparin Sodium (Lovenox) 40 mg SC DAILY [facility] PRN Reason: Protocol Last Admin: 05/26/17 09:59 Dose: 40 mg Gabapentin (Neurontin) 300 mg PO HS [facility] PRN Reason: Protocol Last Admin: 05/25/17 21:19 Dose: 300 mg Ketorolac Tromethamine (Toradol) 15 mg IM Q6 PRN PRN Reason: Pain, moderate (4-7) Stop: 05/29/17 00:34 Last Admin: 05/25/17 17:15 Dose: 15 mg Morphine Sulfate (Morphine) 2 mg IVP Q4H PRN PRN Reason: Pain, severe (8-10) Last Admin: 05/26/17 14:26 Dose: 2 mg Pantoprazole Sodium (Protonix Inj) 40 mg IVP DAILY [facility] Last Admin: 05/26/17 10:01 Dose: 40 mg - Labs Labs: 05/26/17 07:00 05/26/17 07:00 PT 14.9 SECONDS (9.4-12.5) H 05/23/17 16:30 INR 1.36 (0.93-1.08) H 05/23/17 16:30 APTT 31.4 Seconds (25.1-36.5) 05/23/17 16:30 Assessment and Plan (1) Multiple sclerosis Status: Acute
[2017-05-27] MEDS: Morphine 2 mg/ml ISec IVP PRN ×3 (06:21→15:05)
[2017-05-27] MEDS: Enoxaparin 40 mg Syringe SC SCH (09:39)
[2017-05-27] MEDS: Cholecalciferol 1,000 INTLU TAB PO SCH (09:40)
[2017-05-27] MEDS: methylPREDNISolone 1 GM in Sodium Chloride 0.9% 250 ML IV SCH (10:03)
--- NOTE | 2017-05-27 15:25 | CP.PCM.PN ---
<Lyudmila Walsh - Last Filed: 05/27/17 17:29> Subjective - Date & Time of Evaluation Date of Evaluation: 05/27/17 Time of Evaluation: 09:00 - Subjective Subjective: PGY-2 Neurology progress note for Dr. Boston's service Patient seen and examined at bedside, no acute distress. Patient states that she continues to have a headache. She states the morphine is providing relief. Objective - Vital Signs/Intake and Output Vital Signs (last 24 hours): Temp Pulse Resp BP Pulse Ox 98.3 F 72 18 111/58 L 97 05/27/17 12:00 05/27/17 12:00 05/27/17 12:00 05/27/17 12:00 05/27/17 06:00 Intake and Output: 05/27/17 05/27/17 06:59 18:59 Intake Total 550 Output Total 3 Balance 547 - Medications Medications: Current Medications Cholecalciferol (Vitamin D) 5,000 iu PO DAILY [facility] Last Admin: 05/27/17 09:40 Dose: 5,000 iu Docusate Sodium (Colace) 100 mg PO BID [facility] Last Admin: 05/27/17 09:40 Dose: 100 mg Enoxaparin Sodium (Lovenox) 40 mg SC DAILY [facility] PRN Reason: Protocol Last Admin: 05/27/17 09:39 Dose: 40 mg Gabapentin (Neurontin) 300 mg PO HS [facility] PRN Reason: Protocol Last Admin: 05/26/17 22:29 Dose: 300 mg Methylprednisolone 1 gm/ (Sodium Chloride) 250 mls @ 500 mls/hr IV DAILY [facility] Stop: 05/28/17 10:29 Last Admin: 05/27/17 10:03 Dose: 500 mls/hr Ketorolac Tromethamine (Toradol) 15 mg IM Q6 PRN PRN Reason: Pain, moderate (4-7) Stop: 05/29/17 00:34 Last Admin: 05/25/17 17:15 Dose: 15 mg Morphine Sulfate (Morphine) 2 mg IVP Q4H PRN PRN Reason: Pain, severe (8-10) Last Admin: 05/27/17 15:05 Dose: 2 mg Pantoprazole Sodium (Protonix Inj) 40 mg IVP DAILY [facility] Last Admin: 05/27/17 09:40 Dose: 40 mg - Labs Labs: 05/26/17 07:00 05/26/17 07:00 PT 14.9 SECONDS (9.4-12.5) H 05/23/17 16:30 INR 1.36 (0.93-1.08) H 05/23/17 16:30 APTT 31.4 Seconds (25.1-36.5) 05/23/17 16:30 - Constitutional Appears: No Acute Distress - Head Exam Head Exam: ATRAUMATIC, NORMAL INSPECTION, NORMOCEPHALIC - Eye Exam Eye Exam: Normal appearance - Respiratory Exam Respiratory Exam: NORMAL BREATHING PATTERN. absent: Respiratory Distress - Cardiovascular Exam Cardiovascular Exam: REGULAR RHYTHM - Neurological Exam Neurological Exam: Alert, Awake, CN II-XII Intact, Oriented x3 Neuro motor strength exam: Left Upper Extremity: 5, Right Upper Extremity: 5, Left Lower Extremity: 5, Right Lower Extremity: 5 Assessment and Plan - Assessment and Plan (Free Text) Assessment: 27 yo female with PMH of migraine headaches presents with numbness on the left side of her face and arm as well as headache possibly due to MS 1. MS 2. leukocytosis probably due to high dose steroids - CT head was negative - MRI findings consistent with MS - MRI of cervical spine showed possible demylination within ventral aspect of spinal cord - continue 1 g solu-medrol for 1 more day - TSH is low, free T4 within normal limits - sha negative, ESR low - vit D low, start supplementation 5,000 iu daily - TK antibody, and TB quantiferon pending - avoid opiods - discharge with gabapentin 300 BID - discharge with fioricet 1 tab prn - PT/OT - discussed with patient the need follow up Dr. Boston, neurology outpatient for disease modifying therapy, Case reviewed and discussed with attending <Leon Botson - Last Filed: 05/27/17 19:54> Objective - Vital Signs/Intake and Output Vital Signs (last 24 hours): Temp Pulse Resp BP Pulse Ox 98.4 F 73 20 107/63 94 L 05/27/17 17:57 05/27/17 19:20 05/27/17 17:57 05/27/17 19:20 05/27/17 17:57 - Medications Medications: Current Medications Cholecalciferol (Vitamin D) 5,000 iu PO DAILY [facility] Last Admin: 05/27/17 09:40 Dose: 5,000 iu Docusate Sodium (Colace) 100 mg PO BID [facility] Last Admin: 05/27/17 17:53 Dose: 100 mg Enoxaparin Sodium (Lovenox) 40 mg SC DAILY [facility] PRN Reason: Protocol Last Admin: 05/27/17 09:39 Dose: 40 mg Gabapentin (Neurontin) 300 mg PO TID [facility] PRN Reason: Protocol Last Admin: 05/27/17 17:53 Dose: 300 mg Methylprednisolone 1 gm/ (Sodium Chloride) 250 mls @ 500 mls/hr IV DAILY [facility] Stop: 05/28/17 10:29 Last Admin: 05/27/17 10:03 Dose: 500 mls/hr Ketorolac Tromethamine (Toradol) 15 mg IVP Q6 PRN PRN Reason: Pain, moderate (4-7) Stop: 06/01/17 16:26 Last Admin: 05/27/17 19:20 Dose: 15 mg Pantoprazole Sodium (Protonix Inj) 40 mg IVP DAILY [facility] Last Admin: 05/27/17 09:40 Dose: 40 mg - Labs Labs: 05/26/17 07:00 05/26/17 07:00 PT 14.9 SECONDS (9.4-12.5) H 05/23/17 16:30 INR 1.36 (0.93-1.08) H 05/23/17 16:30 APTT 31.4 Seconds (25.1-36.5) 05/23/17 16:30 Attending/Attestation - Attestation I have personally seen and examined this patient.: Yes I have fully participated in the care of the patient.: Yes I have reviewed all pertinent clinical information, including history, physical exam and plan: Yes
[2017-05-27] MEDS ORDERED: HYDROmorphone 2 mg/ml ISec IVP PRN (16:23)
[2017-05-27] MEDS: HYDROmorphone 2 mg/ml ISec IVP PRN (21:44)
[2017-05-28] MEDS: HYDROmorphone 2 mg/ml ISec IVP PRN ×6 (01:46→23:03)
--- NOTE | 2017-05-28 02:14 | CP.PCM.PN ---
Subjective - Date & Time of Evaluation Date of Evaluation: 05/27/17 Time of Evaluation: 14:00 Objective - Vital Signs/Intake and Output Vital Signs (last 24 hours): Temp Pulse Resp BP Pulse Ox 98.4 F 73 20 107/63 94 L 05/27/17 17:57 05/27/17 19:20 05/27/17 17:57 05/27/17 19:20 05/27/17 17:57 Intake and Output: 05/27/17 05/28/17 18:59 06:59 Intake Total 360 Balance 360 - Medications Medications: Current Medications Cholecalciferol (Vitamin D) 5,000 iu PO DAILY [facility] Last Admin: 05/27/17 09:40 Dose: 5,000 iu Docusate Sodium (Colace) 100 mg PO BID [facility] Last Admin: 05/27/17 17:53 Dose: 100 mg Enoxaparin Sodium (Lovenox) 40 mg SC DAILY [facility] PRN Reason: Protocol Last Admin: 05/27/17 09:39 Dose: 40 mg Gabapentin (Neurontin) 300 mg PO TID [facility] PRN Reason: Protocol Last Admin: 05/27/17 17:53 Dose: 300 mg Hydromorphone HCl (Dilaudid) 2 mg IVP Q4H PRN PRN Reason: Pain, severe (8-10) Last Admin: 05/28/17 01:46 Dose: 2 mg Methylprednisolone 1 gm/ (Sodium Chloride) 250 mls @ 500 mls/hr IV DAILY [facility] Stop: 05/28/17 10:29 Last Admin: 05/27/17 10:03 Dose: 500 mls/hr Ketorolac Tromethamine (Toradol) 15 mg IVP Q6 PRN PRN Reason: Pain, moderate (4-7) Stop: 06/01/17 16:26 Last Admin: 05/27/17 19:20 Dose: 15 mg Pantoprazole Sodium (Protonix Inj) 40 mg IVP DAILY [facility] Last Admin: 05/27/17 09:40 Dose: 40 mg - Labs Labs: 05/26/17 07:00 05/26/17 07:00 PT 14.9 SECONDS (9.4-12.5) H 05/23/17 16:30 INR 1.36 (0.93-1.08) H 05/23/17 16:30 APTT 31.4 Seconds (25.1-36.5) 05/23/17 16:30 Assessment and Plan (1) Multiple sclerosis Status: Acute
[2017-05-28 07:28] LABS: GRAN # 11.36 (1.4-6.5); GRAN % 79.6 % (50.0-68.0); HEMATOCRIT 29.6 % (36.0-48.0); LYMPH # 1.5 (1.2-3.4); LYMPH % 10.4 % (22.0-35.0); MEAN CELL VOLUME 79.1 fl (80.0-105.0); MEAN CORPUSCULAR HEMOGLOBIN 24.9 pg (25.0-35.0); MEAN CORPUSCULAR HGB CONC 31.4 g/dl (31.0-37.0); MEAN PLATELET VOLUME 9.2 fl (7.0-11.0); MONO # 1.4 (0.1-0.6); RED CELL DISTRIBUTION WIDTH 14.2 % (11.5-14.5); WHITE BLOOD COUNT 14.3 10^3/ul (4.5-11.0)
[2017-05-28 08:00] LABS: ALB/GLOB RATIO 1.2 (1.1-1.8); ALKALINE PHOSPHATASE 58 U/L (38-126); ALT/SGPT 20 U/L (7-56); AST/SGOT 19 U/L (14-36); BILIRUBIN,TOTAL 0.5 mg/dL (0.2-1.3); BLOOD UREA NITROGEN 31 mg/dL (7-21); CALCIUM 9.1 mg/dL (8.4-10.5); CARBON DIOXIDE 27 mmol/L (21-33); CHLORIDE 108 mmol/L (98-107); GFR AFRICAN-AMERICAN > 60; GLUCOSE,RANDOM 102 mg/dL (70-110); POTASSIUM 4.1 mmol/L (3.6-5.0); SODIUM 140 mmol/L (132-148); TOTAL PROTEIN 6.4 g/dL (5.8-8.3)
--- NOTE | 2017-05-28 09:50 | CP.PCM.PN ---
<Lyudmila Walsh - Last Filed: 05/28/17 12:22> Subjective - Date & Time of Evaluation Date of Evaluation: 05/28/17 Time of Evaluation: 09:49 - Subjective Subjective: PGY-2 Neurology progress note for Dr. Boston's service Patient seen and examined at bedside, no acute distress. Patient states that she continues to have a headache. She states that she needs dilaudid for relief. Advised to avoid opiate medication. Objective - Vital Signs/Intake and Output Vital Signs (last 24 hours): Temp Pulse Resp BP Pulse Ox 99.9 F H 69 18 102/53 L 93 L 05/28/17 06:00 05/28/17 06:00 05/28/17 06:00 05/28/17 06:00 05/28/17 06:00 Intake and Output: 05/28/17 05/28/17 06:59 18:59 Intake Total 960 600 Balance 960 600 - Medications Medications: Current Medications Cholecalciferol (Vitamin D) 5,000 iu PO DAILY [facility] Last Admin: 05/27/17 09:40 Dose: 5,000 iu Docusate Sodium (Colace) 100 mg PO BID [facility] Last Admin: 05/27/17 17:53 Dose: 100 mg Enoxaparin Sodium (Lovenox) 40 mg SC DAILY [facility] PRN Reason: Protocol Last Admin: 05/27/17 09:39 Dose: 40 mg Gabapentin (Neurontin) 300 mg PO TID [facility] PRN Reason: Protocol Last Admin: 05/27/17 17:53 Dose: 300 mg Hydromorphone HCl (Dilaudid) 2 mg IVP Q4H PRN PRN Reason: Pain, severe (8-10) Last Admin: 05/28/17 06:13 Dose: 2 mg Methylprednisolone 1 gm/ (Sodium Chloride) 250 mls @ 500 mls/hr IV DAILY [facility] Stop: 05/28/17 10:29 Last Admin: 05/27/17 10:03 Dose: 500 mls/hr Ketorolac Tromethamine (Toradol) 15 mg IVP Q6 PRN PRN Reason: Pain, moderate (4-7) Stop: 06/01/17 16:26 Last Admin: 05/27/17 19:20 Dose: 15 mg Pantoprazole Sodium (Protonix Inj) 40 mg IVP DAILY [facility] Last Admin: 05/27/17 09:40 Dose: 40 mg - Labs Labs: 05/28/17 06:55 05/28/17 06:55 PT 14.9 SECONDS (9.4-12.5) H 05/23/17 16:30 INR 1.36 (0.93-1.08) H 05/23/17 16:30 APTT 31.4 Seconds (25.1-36.5) 05/23/17 16:30 - Constitutional Appears: Well, No Acute Distress - Head Exam Head Exam: ATRAUMATIC, NORMAL INSPECTION, NORMOCEPHALIC - Eye Exam Eye Exam: EOMI, Normal appearance - ENT Exam ENT Exam: Mucous Membranes Moist - Respiratory Exam Respiratory Exam: NORMAL BREATHING PATTERN. absent: Respiratory Distress - Cardiovascular Exam Cardiovascular Exam: absent: REGULAR RHYTHM - GI/Abdominal Exam GI & Abdominal Exam: Soft, Normal Bowel Sounds - Neurological Exam Neurological Exam: Alert, Awake, CN II-XII Intact, Oriented x3 Neuro motor strength exam: Left Upper Extremity: 5, Right Upper Extremity: 5, Left Lower Extremity: 5, Right Lower Extremity: 5 - Skin Skin Exam: Dry, Intact, Normal Color, Warm Assessment and Plan - Assessment and Plan (Free Text) Assessment: 27 yo female with PMH of migraine headaches presents with numbness on the left side of her face and arm as well as headache possibly due to MS 1. MS 2. leukocytosis probably due to high dose steroids - CT head was negative - MRI findings consistent with MS - MRI of cervical spine showed possible demylination within ventral aspect of spinal cord - continue 1 g solu-medrol, last day today - TSH is low, free T4 within normal limits - sha negative, ESR low - vit D low, start supplementation 5,000 iu daily - TK antibody, and TB quantiferon pending - avoid opiate - discharge with gabapentin 300 BID - discharge with fioricet 1 tab prn - PT/OT - discussed with patient the need follow up neurology outpatient for disease modifying therapy, thank you for the consult, patient is to follow up with Dr. Putnam within 2 weeks Case reviewed and discussed with attending <Leon Boston - Last Filed: 05/28/17 18:01> Objective - Vital Signs/Intake and Output Vital Signs (last 24 hours): Temp Pulse Resp BP Pulse Ox 98.5 F 74 20 117/80 93 L 05/28/17 12:00 05/28/17 14:00 05/28/17 12:00 05/28/17 12:00 05/28/17 06:00 Intake and Output: 05/28/17 05/28/17 06:59 18:59 Intake Total 960 600 Balance 960 600 - Medications Medications: Current Medications Cholecalciferol (Vitamin D) 5,000 iu PO DAILY [facility] Last Admin: 05/28/17 10:18 Dose: 5,000 iu Docusate Sodium (Colace) 100 mg PO BID [facility] Last Admin: 05/28/17 17:48 Dose: 100 mg Enoxaparin Sodium (Lovenox) 40 mg SC DAILY [facility] PRN Reason: Protocol Last Admin: 05/28/17 10:21 Dose: 40 mg Gabapentin (Neurontin) 300 mg PO TID [facility] PRN Reason: Protocol Last Admin: 05/28/17 17:48 Dose: 300 mg Hydromorphone HCl (Dilaudid) 2 mg IVP Q4H PRN PRN Reason: Pain, severe (8-10) Last Admin: 05/28/17 14:47 Dose: 2 mg Ketorolac Tromethamine (Toradol) 15 mg IVP Q6 PRN PRN Reason: Pain, moderate (4-7) Stop: 06/01/17 16:26 Last Admin: 05/27/17 19:20 Dose: 15 mg Pantoprazole Sodium (Protonix Ec Tab) 40 mg PO DAILY [facility] - Labs Labs: 05/28/17 06:55 05/28/17 06:55 PT 14.9 SECONDS (9.4-12.5) H 05/23/17 16:30 INR 1.36 (0.93-1.08) H 05/23/17 16:30 APTT 31.4 Seconds (25.1-36.5) 05/23/17 16:30 Attending/Attestation - Attestation I have personally seen and examined this patient.: Yes I have fully participated in the care of the patient.: Yes I have reviewed all pertinent clinical information, including history, physical exam and plan: Yes
[2017-05-28] MEDS: Cholecalciferol 1,000 INTLU TAB PO SCH (10:18)
[2017-05-28] MEDS: methylPREDNISolone 1 GM in Sodium Chloride 0.9% 250 ML IV SCH (10:18)
[2017-05-28] MEDS: Enoxaparin 40 mg Syringe SC SCH (10:21)
[2017-05-28 18:28] VITALS: RESP 18
[2017-05-29 02:19] VITALS: O2SAT 95
[2017-05-29] MEDS: HYDROmorphone 2 mg/ml ISec IVP PRN ×3 (03:00→10:58)
[2017-05-29] MEDS: Enoxaparin 40 mg Syringe SC SCH (09:53)
[2017-05-29] MEDS: Cholecalciferol 1,000 INTLU TAB PO SCH (09:54)
[2017-05-29] MEDS ORDERED: Pantoprazole 40 mg EC Tab PO SCH (10:00)
[2017-05-29 11:55] VITALS: BP 108/69; PULSE 59; TEMP 98.8
--- NOTE | 2017-05-29 17:58 | CP.PCM.PN ---
<Lyudmila Walsh - Last Filed: 05/29/17 18:03> Subjective - Date & Time of Evaluation Date of Evaluation: 05/29/17 Time of Evaluation: 09:00 - Subjective Subjective: PGY-2 Neurology progress note for Dr. Boston's service Patient seen and examined at bedside, no acute distress. Patient states that she continues to have a headache, Dilaudid is helping. She states that case manger is arranging home with services. Advised to avoid opiate medication. Objective - Vital Signs/Intake and Output Vital Signs (last 24 hours): Temp Pulse Resp BP Pulse Ox 98.8 F 59 L 18 108/69 95 05/29/17 11:54 05/29/17 11:54 05/29/17 11:54 05/29/17 11:54 05/29/17 00:01 Intake and Output: 05/29/17 05/29/17 06:59 18:59 Intake Total 480 Balance 480 - Labs Labs: 05/28/17 06:55 05/28/17 06:55 PT 14.9 SECONDS (9.4-12.5) H 05/23/17 16:30 INR 1.36 (0.93-1.08) H 05/23/17 16:30 APTT 31.4 Seconds (25.1-36.5) 05/23/17 16:30 - Constitutional Appears: No Acute Distress - Head Exam Head Exam: ATRAUMATIC, NORMAL INSPECTION, NORMOCEPHALIC - Eye Exam Eye Exam: EOMI - ENT Exam ENT Exam: Mucous Membranes Moist - Respiratory Exam Respiratory Exam: NORMAL BREATHING PATTERN. absent: Respiratory Distress - Neurological Exam Neurological Exam: Alert, Awake, Oriented x3 Neuro motor strength exam: Left Upper Extremity: 5, Right Upper Extremity: 5, Left Lower Extremity: 5, Right Lower Extremity: 5 Assessment and Plan - Assessment and Plan (Free Text) Assessment: 27 yo female with PMH of migraine headaches presents with numbness on the left side of her face and arm as well as headache possibly due to MS 1. MS 2. leukocytosis probably due to high dose steroids - CT head was negative - MRI findings consistent with MS - MRI of cervical spine showed possible demylination within ventral aspect of spinal cord - completed course of solu- medrol 1g - TSH is low, free T4 within normal limits - sha negative, ESR low - vit D low, start supplementation 5,000 iu daily - TK antibody, and TB quantiferon pending - avoid opiate - discharge with gabapentin 300 BID - discharge with fioricet 1 tab prn - PT/OT - awaiting home services - discussed with patient the need follow up neurology outpatient for disease modifying therapy, thank you for the consult, patient is to follow up with Dr. Putnam within 2 weeks Case reviewed and discussed with attending <Leon Boston - Last Filed: 05/29/17 23:31> Objective - Vital Signs/Intake and Output Vital Signs (last 24 hours): Temp Pulse Resp BP Pulse Ox 98.8 F 59 L 18 108/69 95 05/29/17 11:54 05/29/17 11:54 05/29/17 11:54 05/29/17 11:54 05/29/17 00:01 - Labs Labs: 05/28/17 06:55 05/28/17 06:55 PT 14.9 SECONDS (9.4-12.5) H 05/23/17 16:30 INR 1.36 (0.93-1.08) H 05/23/17 16:30 APTT 31.4 Seconds (25.1-36.5) 05/23/17 16:30 Attending/Attestation - Attestation I have personally seen and examined this patient.: Yes I have fully participated in the care of the patient.: Yes I have reviewed all pertinent clinical information, including history, physical exam and plan: Yes
--- NOTE | 2017-05-30 03:10 | CP.PCM.PN ---
Subjective - Date & Time of Evaluation Date of Evaluation: 05/28/17 Time of Evaluation: 19:00 - Subjective Subjective: Patient was cleared for D/C By the Neurologist. She refused to go [facility], and will need Home Services, and will be arranged tomorrow and advance D/C Planning for tomorrow. Continue to have Right sided hemiparesis, Facial droop and LEWIS. Patient states feeling down butt adjusting the new MS diagnosis. Eye pain has resolved. Objective - Vital Signs/Intake and Output Vital Signs (last 24 hours): Temp Pulse Resp BP Pulse Ox 98.8 F 59 L 18 108/69 95 05/29/17 11:54 05/29/17 11:54 05/29/17 11:54 05/29/17 11:54 05/29/17 00:01 - Labs Labs: 05/28/17 06:55 05/28/17 06:55 PT 14.9 SECONDS (9.4-12.5) H 05/23/17 16:30 INR 1.36 (0.93-1.08) H 05/23/17 16:30 APTT 31.4 Seconds (25.1-36.5) 05/23/17 16:30 - Constitutional Appears: Well, No Acute Distress - Head Exam Head Exam: ATRAUMATIC, NORMAL INSPECTION, NORMOCEPHALIC - Eye Exam Eye Exam: EOMI, Normal appearance, PERRL Pupil Exam: NORMAL ACCOMODATION, PERRL - ENT Exam ENT Exam: Mucous Membranes Moist, Normal Exam - Neck Exam Neck Exam: Full ROM, Normal Inspection. absent: Lymphadenopathy - Respiratory Exam Respiratory Exam: Clear to Ausculation Bilateral, NORMAL BREATHING PATTERN - Cardiovascular Exam Cardiovascular Exam: REGULAR RHYTHM, +S1, +S2. absent: Murmur - GI/Abdominal Exam GI & Abdominal Exam: Soft, Normal Bowel Sounds. absent: Tenderness - Extremities Exam Extremities Exam: Full ROM, Normal Capillary Refill, Normal Inspection. absent : Joint Swelling, Pedal Edema - Back Exam Back Exam: NORMAL INSPECTION - Neurological Exam Neurological Exam: Alert, Awake, Motor Sensory Deficit, Oriented x3 Neuro motor strength exam: Left Upper Extremity: 5, Right Upper Extremity: 3, Left Lower Extremity: 5, Right Lower Extremity: 4 - Psychiatric Exam Psychiatric exam: Normal Affect, Normal Mood - Skin Skin Exam: Dry, Intact, Normal Color, Warm Assessment and Plan (1) Multiple sclerosis Assessment & Plan: Right Hemiparesis and FAcial Nerve Palsy Blurry Vision LEWIS CT head was negative MRI findings consistent with MS MRI of cervical and thoracic spine Solu-medrol 1gm IV for 5 days Completed today (as per recommendation of Neurologist) Gabapentin 300 HS Neurologist onboard Status: Acute
--- NOTE | 2017-05-30 03:15 | CP.PCM.DIS ---
Provider - Provider Date of Admission: 05/23/17 21:53 Attending physician: Vanessa Burgos MD Primary care physician: NO PRIMARY CARE PROVIDER Time Spent in preparation of Discharge (in minutes): 35 Diagnosis - Discharge Diagnosis (1) Multiple sclerosis Status: Acute Hospital Course - Lab Results Lab Results: Most Recent Lab Values WBC 14.3 10^3/ul (4.5-11.0) H D 05/28/17 06:55 RBC 3.74 10^6/uL (3.5-6.1) 05/28/17 06:55 Hgb 9.3 g/dL (12.0-16.0) L 05/28/17 06:55 Hct 29.6 % (36.0-48.0) L 05/28/17 06:55 MCV 79.1 fl (80.0-105.0) L 05/28/17 06:55 MCH 24.9 pg (25.0-35.0) L 05/28/17 06:55 MCHC 31.4 g/dl (31.0-37.0) 05/28/17 06:55 RDW 14.2 % (11.5-14.5) 05/28/17 06:55 Plt Count 361 10^3/uL (120.0-450.0) 05/28/17 06:55 MPV 9.2 fl (7.0-11.0) 05/28/17 06:55 Gran % 79.6 % (50.0-68.0) H 05/28/17 06:55 Lymph % (Auto) 10.4 % (22.0-35.0) L 05/28/17 06:55 [place] % (Auto) 10.0 % (1.0-6.0) H 05/28/17 06:55 Eos % (Auto) 0.0 % (1.5-5.0) L 05/28/17 06:55 Baso % (Auto) 0.0 % (0.0-3.0) 05/28/17 06:55 Gran # 11.36 (1.4-6.5) H 05/28/17 06:55 Lymph # 1.5 (1.2-3.4) 05/28/17 06:55 [place] # 1.4 (0.1-0.6) H 05/28/17 06:55 Eos # 0.0 (0.0-0.7) 05/28/17 06:55 Baso # 0.00 K/mm3 (0.0-2.0) 05/28/17 06:55 Neutrophils % (Manual) 89 % (50.0-70.0) H 05/26/17 07:00 Band Neutrophils % 2 % (0-2) 05/26/17 07:00 Lymphocytes % (Manual) 5 % (22.0-35.0) L 05/26/17 07:00 Atypical Lymphs % 2 % (0.0-0.0) H 05/26/17 07:00 Monocytes % (Manual) 2 % (1.0-6.0) 05/26/17 07:00 Platelet Evaluation Normal (NORMAL) 05/26/17 07:00 Large Platelets Present 05/26/17 07:00 Hypochromasia 1+ 05/26/17 07:00 Anisocytosis (manual) 1+ 05/26/17 07:00 Microcytosis (manual) 1+ 05/26/17 07:00 ESR 19 mm/hr (0.0-20.0) 05/24/17 12:00 PT 14.9 SECONDS (9.4-12.5) H 05/23/17 16:30 INR 1.36 (0.93-1.08) H 05/23/17 16:30 APTT 31.4 Seconds (25.1-36.5) 05/23/17 16:30 Sodium 140 mmol/L (132-148) 05/28/17 06:55 Potassium 4.1 mmol/L (3.6-5.0) 05/28/17 06:55 Chloride 108 mmol/L (98-107) H 05/28/17 06:55 Carbon Dioxide 27 mmol/L (21-33) 05/28/17 06:55 Anion Gap 10 (10-20) 05/28/17 06:55 BUN 31 mg/dL (7-21) H 05/28/17 06:55 Creatinine 0.9 mg/dl (0.7-1.2) 05/28/17 06:55 Est GFR ( Amer) > 60 05/28/17 06:55 Est GFR (Non-Af Amer) > 60 05/28/17 06:55 POC Glucose (mg/dL) 89 mg/dL (65-110) 05/29/17 11:00 Random Glucose 102 mg/dL (70-110) 05/28/17 06:55 Hemoglobin A1c 5.7 % (4.2-6.5) 05/23/17 16:30 Calcium 9.1 mg/dL (8.4-10.5) 05/28/17 06:55 Total Bilirubin 0.5 mg/dL (0.2-1.3) 05/28/17 06:55 AST 19 U/L (14-36) 05/28/17 06:55 ALT 20 U/L (7-56) 05/28/17 06:55 Alkaline Phosphatase 58 U/L (38-126) 05/28/17 06:55 Troponin I < 0.01 ng/mL 05/23/17 16:30 Total Protein 6.4 g/dL (5.8-8.3) 05/28/17 06:55 Albumin 3.5 g/dL (3.0-4.8) 05/28/17 06:55 Globulin 2.8 gm/dL 05/28/17 06:55 Albumin/Globulin Ratio 1.2 (1.1-1.8) 05/28/17 06:55 Triglycerides 81 mg/dL (35-160) 05/23/17 16:30 Cholesterol 140 mg/dL (130-200) 05/23/17 16:30 LDL Cholesterol Direct 62 mg/dL (0-129) 05/23/17 16:30 HDL Cholesterol 55 mg/dL (29-60) 05/23/17 16:30 25-OH Vitamin D Total < 12.8 NG/ML (30.0-100.0) L 05/26/17 07:00 Free T4 1.18 ng/dL (0.78-2.19) 05/26/17 10:06 TSH 3rd Generation 0.35 mIU/mL (0.46-4.68) L 05/26/17 10:06 Beta HCG, Quant < 2.39 mIU/mL (0-6.15) 05/23/17 16:30 APOLINAR Screen Negative (Negative) 05/24/17 12:00 TB Test (QFT) Nil 0.03 IU/mL 05/26/17 07:00 TB Test Mitogen - Nil 0.46 IU/mL 05/26/17 07:00 TB Test TB - Nil <0.00 IU/mL 05/26/17 07:00 TB Test (QFT) Indeterminate (Negative) H 05/26/17 07:00 Blood Type B POSITIVE 05/23/17 16:30 Antibody Screen Negative 05/23/17 16:30 BBK History Checked Patient has bt 05/23/17 16:30 Discharge Exam - Head Exam Head Exam: ATRAUMATIC, NORMAL INSPECTION, NORMOCEPHALIC Discharge Plan - Follow Up Plan Condition: STABLE Disposition: HOME/ ROUTINE Instructions: Gabapentin (By mouth), Multiple Sclerosis (DC), Weakness (GEN) Additional Instructions: 1. begin taking neurontin 300mg by mouth three times daily as instructed. 2. follow up with your primary medical doctor in 1 week. 3. follow up with Dr. Boston in 2 weeks. 4. if symptoms persist return to your nearest ER.
== END 2017-05-29 13:32 | disposition home health service (06) | DRG 60 ==
LOC: ED 15:58 → ERH 21:53 → 3RSO 23:07
PROVIDERS: ADMIT Internal Medicine; ATTEND Internal Medicine
DX: G35 Multiple sclerosis (principal); R29.810 Facial weakness; G81.91 Hemiplegia, unspecified affecting right dominant side; G43.909 Migraine, unspecified, not intractable, without status migrainosus; R20.0 Anesthesia of skin; D72.829 Elevated white blood cell count, unspecified; T38.0X5A Adverse effect of glucocorticoids and synthetic analogues, initial encounter; K21.9 Gastro-esophageal reflux disease without esophagitis; F41.9 Anxiety disorder, unspecified; Z87.442 Personal history of urinary calculi; Z87.891 Personal history of nicotine dependence

== ENCOUNTER 2017-05-30 17:28 | Emergency (ER) | payer OTHER ==
[2017-05-30 17:28] VITALS: BMI 26.6
[2017-05-30] MEDS ORDERED: Oxycodone/Acetaminophen 5/325 mg Tab PO STA (18:11)
--- NOTE | 2017-05-30 18:13 | ED PDOC ---
Arrival/HPI - General Historian: Patient <Saul Armstrong A - Last Filed: 05/30/17 19:35> <Shila Truong - Last Filed: 05/31/17 18:47> - General Chief Complaint: Pain, Chronic Time Seen by Provider: 05/30/17 17:40 - History of Present Illness Narrative History of Present Illness (Text): 05/30/17 18:12 27yo female with newly diagnosed multiple sclerosis present with complaint of generalized body pain and numbness to her right sided face. Notes that she was discharged home yesterday and given Neurontin. States she is taking it without relieve. She had similar symptoms when she was admitted last week. She denies trauma ,visual changes, dizziness, any other complaint. (Saul Armstrong A) Past Medical History - Provider Review Nursing Documentation Reviewed: Yes - Infectious Disease Hx of Infectious Diseases: None - Tetanus Immunization Tetanus Immunization: Unknown - Reproductive Menopause: No - Cardiac Hx Cardiac Disorders: No - Pulmonary Hx Respiratory Disorders: Yes Hx Asthma: Yes - Neurological Hx Migraine: Yes Hx Multiple Sclerosis: Yes - HEENT Hx HEENT Disorder: No - Renal Hx Renal Disorder: Yes (renal stent) - Endocrine/Metabolic Hx Endocrine Disorders: No - Hematological/Oncological Hx Blood Disorders: No - Integumentary Hx Dermatological Disorder: No - Musculoskeletal/Rheumatological Hx Falls: No - Gastrointestinal Hx Gastroesophageal Reflux: Yes - Genitourinary/Gynecological Hx Genitourinary Disorders: No - Psychiatric Hx Anxiety: Yes Hx Substance Use: No - Surgical History Hx Cholecystectomy: Yes - Anesthesia Hx Anesthesia: Yes Hx Anesthesia Reactions: No Hx Malignant Hyperthermia: No - Suicidal Assessment Feels Threatened In Home Enviroment: No <Saul Armstrong A - Last Filed: 05/30/17 19:35> Family/Social History - Physician Review Nursing Documentation Reviewed: Yes Family/Social History: Unknown Family HX Smoking Status: Former Smoker Hx Alcohol Use: No (Socially) Hx Substance Use: No Hx Substance Use Treatment: No <Saul Armstrong A - Last Filed: 05/30/17 19:35> Allergies/Home Meds <Saul Armstrong A - Last Filed: 05/30/17 19:35> <Shila Truong - Last Filed: 05/31/17 18:47> Allergies/Adverse Reactions: Allergies No Known Allergies Allergy (Verified 05/23/17 15:59) Review of Systems - Physician Review All systems were reviewed & negative as marked: Yes - Review of Systems Constitutional: Normal Eyes: Normal ENT: Normal Respiratory: Normal Cardiovascular: Normal Gastrointestinal: Normal Genitourinary Female: Normal Musculoskeletal: Myalgias Skin: Normal Neurological: Other (right facial numbness) Endocrine: Normal Hemo/Lymphatic: Normal Psychiatric: Normal <Diru,Happiness A - Last Filed: 05/30/17 19:35> Physical Exam Vital Signs Reviewed: Yes Temperature: Afebrile Blood Pressure: Normal Pulse: Regular Respiratory Rate: Normal Appearance: Positive for: Well-Appearing, Non-Toxic, Comfortable Pain Distress: None Mental Status: Positive for: Alert and Oriented X 3 - Systems Exam Head: Present: Atraumatic, Normocephalic Pupils: Present: PERRL Extroacular Muscles: Present: EOMI Conjunctiva: Present: Normal Mouth: Present: Moist Mucous Membranes Neck: Present: Normal Range of Motion Respiratory/Chest: Present: Clear to Auscultation, Good Air Exchange. No: Respiratory Distress, Accessory Muscle Use Cardiovascular: Present: Regular Rate and Rhythm, Normal S1, S2. No: Murmurs Abdomen: Present: Normal Bowel Sounds. No: Tenderness, Distention, Peritoneal Signs Back: Present: Normal Inspection Upper Extremity: Present: Normal Inspection. No: Cyanosis, Edema Lower Extremity: Present: Normal Inspection. No: Edema Neurological: Present: GCS=15, CN II-XII Intact, Speech Normal, Normal Sensory Function, Memory Normal. No: Motor Func Grossly Intact (Decreased strenght on upper and lower extremity), Gait Normal (Right limp) Skin: Present: Warm, Dry, Normal Color. No: Rashes Psychiatric: Present: Alert, Oriented x 3, Normal Insight, Normal Concentration <Diru,Happiness A - Last Filed: 05/30/17 19:35> Vital Signs Temp Pulse Resp BP Pulse Ox 05/30/17 19:44 98.7 F 80 17 122/85 100 05/30/17 17:42 98.8 F 72 18 118/68 98 05/30/17 17:28 98.8 F 72 18 118/68 98 Medical Decision Making <Diru,Happiness A - Last Filed: 05/30/17 19:35> <Lara Truongori - Last Filed: 05/31/17 18:47> ED Course and Treatment: 05/30/17 18:57 Newly diagnosed MS patient, 27yo female in ED for body pain and right sided facial numbness. Pt was seen here last week and was diagnosed with MS. She was discharged home yesterday. Case was DW Dr. Putnam, the neurologist that saw patient in ED. He recommends analgesic, steroid and DC patient home with Fioricet. States patient should be advised that her symptoms are secondary to the MS and she will be having symptoms until it remits. PT was treated with cortisone, percocet in ED. She was advised to f/u with Dr. Putnam. Made aware that symptoms are secondary to the MS. Rx of Fioricet given. TRT ED for any new or worsening symptoms. (Saul Armstrong) - Medication Orders Current Medication Orders: Discontinued Medications Hydrocortisone Sodium Succinate (Solu-Cortef) 100 mg IM STAT STA Stop: 05/30/17 18:12 Last Admin: 05/30/17 18:26 Dose: 100 mg IM Administration Charges Document 05/30/17 18:26 SRE (Rec: 05/30/17 18:26 SRE [id number]) Injection Site MAR Injection Site Left Gluteus Reymundo Charges for Administration # of IM Administrations 1 Oxycodone/Acetaminophen (Percocet 5/325 Mg Tab) 1 tab PO STAT STA Stop: 05/30/17 18:12 Last Admin: 05/30/17 18:21 Dose: 1 tab MAR Pain Assessment Document 05/30/17 18:21 SRE (Rec: 05/30/17 18:26 SRE [id number]) Pain Reassessment Is this a pain reassessment? Yes Sleep Is patient sleeping during reassessment? No Presence of Pain Presence of Pain Yes Pain Scale Used Pain Scale Used Numeric Location Pain Location Body Site Generalized Description Description Intermittent - PA / EYE PHYSICIAN / Resident Statement MD/DO has reviewed & agrees with the documentation as recorded. <Shila Truong - Last Filed: 05/31/17 18:47> Disposition/Present on Arrival - Present on Arrival Any Indicators Present on Arrival: No History of DVT/PE: No History of Uncontrolled Diabetes: No Urinary Catheter: No History of Decub. Ulcer: No History Surgical Site Infection Following: None - Disposition Have Diagnosis and Disposition been Completed?: Yes Disposition Time: 19:05 Patient Plan: Discharge <PattiSaul Mccurdy - Last Filed: 05/30/17 19:35> - Present on Arrival Any Indicators Present on Arrival: No History of DVT/PE: No History of Uncontrolled Diabetes: No Urinary Catheter: No History of Decub. Ulcer: No History Surgical Site Infection Following: None - Disposition Have Diagnosis and Disposition been Completed?: Yes <Shila Truong - Last Filed: 05/31/17 18:47> - Disposition Diagnosis: Hemiparesis, Multiple sclerosis Disposition: HOME/ ROUTINE Condition: STABLE Discharge Instructions (ExitCare): Weakness (ED) Additional Instructions: Follow up with your PMD/Neurologist Return to ED for any new or worsening symptoms Prescriptions: Acetaminophen/Butalbital/Caf [Fioricet] 1 tab PO Q4 #10 tab Referrals: Vanessa Burgos MD [Primary Care Provider] - Follow up with primary Leon Boston MD [Staff Provider] - Follow up with primary Forms: [employer] ([place])
[2017-05-30 19:44] VITALS: BP 122/85; PULSE 80; RESP 17; TEMP 98.7; O2SAT 100
== END 2017-05-30 19:06 | disposition home or self-care (01) ==
LOC: ED 17:28
DX: G81.90 Hemiplegia, unspecified affecting unspecified side (principal); G35 Multiple sclerosis
CPT/HCPCS: 96372; 99283; J1720

== ENCOUNTER 2017-11-23 19:52 | Emergency (ER) | payer OTHER ==
[2017-11-23 20:50] VITALS: BMI 25.0
[2017-11-23] MEDS ORDERED: Sodium Chloride 0.9% 1,000 ML IV STA ×2 (21:12→22:15)
--- NOTE | 2017-11-23 21:15 | ED PDOC ---
Arrival/HPI - General Chief Complaint: Dizziness/Lightheaded Time Seen by Provider: 11/23/17 20:53 Historian: Patient - History of Present Illness Narrative History of Present Illness (Text): 11/23/17 21:08 27 year old female, whose history includes MS, presents to the Emergency department complaining of a cold for 3 days. Patient is experiencing body aches , joint aches, headache, and dry cough. Patient also reports a fever measured to be 102.1 degrees 2 days ago. Patient is concerned because she feels that she should have started improving by now; she is also anxious because of her relatively new diagnosis of MS. Patient has started 2 new medications since the diagnosis in May 2017. Patient denies any chest pain, shortness of breath, nausea, vomiting, diarrhea, urinary symptoms, back pain, dizziness, or any other complaints. Time/Duration: < week (3 days ago) Symptom Onset: Gradual Symptom Course: Unchanged Context: Home Past Medical History - Provider Review Nursing Documentation Reviewed: Yes - Infectious Disease Hx of Infectious Diseases: None - Tetanus Immunization Tetanus Immunization: Unknown - Cardiac Hx Cardiac Disorders: No - Pulmonary Hx Respiratory Disorders: Yes Hx Asthma: Yes - Neurological Hx Migraine: Yes Hx Multiple Sclerosis: Yes - HEENT Hx HEENT Disorder: No - Renal Hx Renal Disorder: Yes (renal stent) - Endocrine/Metabolic Hx Endocrine Disorders: No - Hematological/Oncological Hx Blood Disorders: No - Integumentary Hx Dermatological Disorder: No - Musculoskeletal/Rheumatological Hx Falls: No - Gastrointestinal Hx Gastroesophageal Reflux: Yes - Genitourinary/Gynecological Hx Genitourinary Disorders: No - Psychiatric Hx Anxiety: Yes Hx Substance Use: No - Surgical History Hx Cholecystectomy: Yes - Anesthesia Hx Anesthesia: Yes Hx Anesthesia Reactions: No Hx Malignant Hyperthermia: No - Suicidal Assessment Feels Threatened In Home Enviroment: No Family/Social History - Physician Review Nursing Documentation Reviewed: Yes Family/Social History: Unknown Family HX Smoking Status: Former Smoker Hx Alcohol Use: No (Socially) Hx Substance Use: No Hx Substance Use Treatment: No Allergies/Home Meds Allergies/Adverse Reactions: Allergies No Known Allergies Allergy (Verified 11/23/17 20:50) Review of Systems - Physician Review All systems were reviewed & negative as marked: Yes - Review of Systems Constitutional: Fevers Respiratory: Cough. absent: SOB Cardiovascular: absent: Chest Pain Gastrointestinal: absent: Diarrhea, Nausea, Vomiting Genitourinary Female: absent: Dysuria Musculoskeletal: Myalgias. absent: Back Pain Neurological: Headache. absent: Dizziness Physical Exam Vital Signs Reviewed: Yes Vital Signs Pulse Resp BP Pulse Ox 11/23/17 23:01 89 17 105/61 99 - Systems Exam Head: Present: Atraumatic, Normocephalic, Tenderness (maxillary sinuses and frontal sinuses) Pupils: Present: PERRL Extroacular Muscles: Present: EOMI Conjunctiva: Present: Normal Mouth: Present: Moist Mucous Membranes Neck: Present: Normal Range of Motion (no pain with neck flexion) Respiratory/Chest: Present: Clear to Auscultation, Good Air Exchange. No: Respiratory Distress, Accessory Muscle Use Cardiovascular: Present: Regular Rate and Rhythm, Normal S1, S2. No: Murmurs Abdomen: No: Tenderness, Distention, Peritoneal Signs Back: Present: Normal Inspection Upper Extremity: Present: Normal Inspection. No: Cyanosis, Edema Lower Extremity: Present: Normal Inspection. No: Edema Neurological: Present: GCS=15, CN II-XII Intact, Speech Normal Skin: Present: Warm, Dry, Normal Color. No: Rashes Psychiatric: Present: Alert, Oriented x 3, Normal Insight, Normal Concentration Medical Decision Making ED Course and Treatment: 11/23/17 21:19 Impression: 27 year old female presents to the Emergency department complaining of body aches, joint aches, headache, and cough. Plan: -- Chest xray -- Blood culture, urine culture -- Urinalysis -- VBG -- Labs -- Sodium Chloride IV fluids -- Reassess and disposition Prior Visits: Notes and results from previous visits were reviewed. Patient was last seen in the emergency department on 05/30/17, was diagnosed with Hemiparesis, Multiple sclerosis, and was discharged home. Progress Notes: 11/23/17 23:02 CXR Impression: As read by me, no acute disease. - Lab Interpretations Lab Results: 11/23/17 21:22 11/23/17 21:22 Lab Results 11/23/17 21:54: Urine Color Yellow, Urine Appearance Slight-cloudy, Urine pH 6.5 , Ur Specific [place] 1.015, Urine Protein Negative, Urine Glucose (UA) Negative , Urine Ketones Negative, Urine Blood Small H, Urine Nitrate Positive H, Urine Bilirubin Negative, Urine Urobilinogen 0.2, Ur Leukocyte Esterase Large H, Urine RBC 5 - 10, Urine WBC 25 - 30, Ur Epithelial Cells 6 - 8, Urine Bacteria Many, Urine Other [place]ast 11/23/17 21:22: Sodium 141, Chloride 103, Potassium 3.6, Carbon Dioxide 24, Anion Gap 17, BUN 10, Creatinine 0.8, Est GFR ( Amer) > 60, Est GFR (Non- Af Amer) > 60, Random Glucose 110, Calcium 9.2, Total Bilirubin 0.4, AST 32, ALT 24, Alkaline Phosphatase 105, Total Protein 7.8, Albumin 4.5, Globulin 3.3, Albumin/Globulin Ratio 1.4 11/23/17 21:22: pO2 103 H, VBG pH 7.40, VBG pCO2 42.0, VBG HCO3 26.0, VBG Total CO2 27.3, VBG O2 Sat (Calc) 99.6 H, VBG Base Excess 1.0, VBG Potassium 3.5 L, Sodium 138.0, Chloride 107.0, Glucose 114 H, Lactate 1.0, FiO2 21.0, Venous Blood Potassium 3.5 L 11/23/17 21:22: WBC 12.5 H D, RBC 4.41, Hgb 9.8 L, Hct 31.5 L, MCV 71.4 L D, MCH 22.2 L, MCHC 31.1, RDW 16.0 H, Plt Count 403, MPV 9.2, Gran % 80.6 H, Lymph % (Auto) 14.2 L, [place] % (Auto) 3.8, Eos % (Auto) 1.1 L, Baso % (Auto) 0.3, Gran # 10.10 H, Lymph # (Auto) 1.8, [place] # (Auto) 0.5, Eos # (Auto) 0.1, Baso # (Auto ) 0.04 I have reviewed the lab results: Yes - RAD Interpretation Radiology Orders: 11/23/17 21:15 CXR [CHEST PORTABLE] [RAD] Stat - Medication Orders Current Medication Orders: Ceftriaxone Sodium (Rocephin 2 Gm Ivpb) 2 gm in 100 mls @ 100 mls/hr IVPB STAT STA PRN Reason: Protocol Stop: 11/24/17 00:05 Discontinued Medications Diphenhydramine HCl (Benadryl) 50 mg IVP STAT STA Stop: 11/23/17 22:14 Last Admin: 11/23/17 22:29 Dose: 50 mg IVP Administration Document 11/23/17 22:29 IT (Rec: 11/23/17 22:29 IT [id number]) Charges for Administration # of IVP Administrations 1 Sodium Chloride (Sodium Chloride 0.9%) 1,000 mls @ 999 mls/hr IV .Q1H1M STA Stop: 11/23/17 22:12 Last Admin: 11/23/17 21:26 Dose: 999 mls/hr eMAR Start Stop Document 11/23/17 21:26 IT (Rec: 11/23/17 21:27 IT [id number]) Intravenous Solution Start Date 11/23/17 Start Time 21:26 End Date 11/23/17 End time 22:26 Total Infusion Time 60 Sodium Chloride (Sodium Chloride 0.9%) 1,000 mls @ 999 mls/hr IV .Q1H1M STA Stop: 11/23/17 23:15 Last Admin: 11/23/17 22:29 Dose: 999 mls/hr eMAR Start Stop Document 11/23/17 22:29 IT (Rec: 11/23/17 22:29 IT [id number]) Intravenous Solution Start Date 11/23/17 Start Time 22:29 Ketorolac Tromethamine (Toradol) 30 mg IVP STAT STA Stop: 11/23/17 22:14 Last Admin: 11/23/17 22:29 Dose: 30 mg MAR Pain Assessment Document 11/23/17 22:29 IT (Rec: 11/23/17 22:29 IT [id number]) Pain Reassessment Is this a pain reassessment? No Presence of Pain Presence of Pain Yes Pain Scale Used Pain Scale Used Numeric Location Left, Right or Bilateral Bilateral IVP Administration Document 11/23/17 22:29 IT (Rec: 11/23/17 22:29 IT [id number]) Charges for Administration # of IVP Administrations 1 Metoclopramide HCl (Reglan) 10 mg IVP STAT STA Stop: 11/23/17 22:14 Last Admin: 11/23/17 22:29 Dose: 10 mg IVP Administration Document 11/23/17 22:29 IT (Rec: 11/23/17 22:29 IT [id number]) Charges for Administration # of IVP Administrations 1 - Scribe Statement The provider has reviewed the documentation as recorded by the Scribe Zeeshan Alcantara All medical record entries made by the Scribe were at my direction and personally dictated by me. I have reviewed the chart and agree that the record accurately reflects my personal performance of the history, physical exam, medical decision making, and the department course for this patient. I have also personally directed, reviewed, and agree with the discharge instructions and disposition. Disposition/Present on Arrival - Present on Arrival Any Indicators Present on Arrival: No History of DVT/PE: No History of Uncontrolled Diabetes: No Urinary Catheter: No History of Decub. Ulcer: No History Surgical Site Infection Following: None - Disposition Have Diagnosis and Disposition been Completed?: Yes Diagnosis: Acute febrile illness, Urinary tract infection, Multiple sclerosis Disposition: HOME/ ROUTINE Disposition Time: 23:40 Patient Plan: Discharge Condition: GOOD Discharge Instructions (ExitCare): Urinary Tract Infection, Adult (DC), Multiple Sclerosis, Adult (DC), Cough, Runny Nose, and the Common Cold (DC) Additional Instructions: Mrs Crenshaw- Return to us if worse or any problems. The Keflex is Three times a day and you need to drink 5 20 ounce bottles of water daily . Zofran is for nausea or upset stomach. You can take OTC Claritin D for congestion and cough. Melvin- Dr. Leonard Murguia Referrals: FAMILY PROVIDER,NO [Primary Care Provider] - Follow up with primary Forms: [facility] ([place]), WORK NOTE, SCHOOL NOTE
[2017-11-23 21:36] LABS: BASO # 0.04 K/mm3 (0.0-2.0); BASO % 0.3 % (0.0-3.0); EOS # 0.1 (0.0-0.7); EOS % 1.1 % (1.5-5.0); GRAN # 10.1 (1.4-6.5); GRAN % 80.6 % (50.0-68.0); HEMOGLOBIN 9.8 g/dL (12.0-16.0); LYMPH # 1.8 (1.2-3.4); LYMPH % 14.2 % (22.0-35.0); MEAN CELL VOLUME 71.4 fl (80.0-105.0); MEAN CORPUSCULAR HEMOGLOBIN 22.2 pg (25.0-35.0); MEAN CORPUSCULAR HGB CONC 31.1 g/dl (31.0-37.0); MEAN PLATELET VOLUME 9.2 fl (7.0-11.0); MONO # 0.5 (0.1-0.6); MONO % 3.8 % (1.0-6.0); RBC 4.41 10^6/uL (3.5-6.1); WHITE BLOOD COUNT 12.5 10^3/ul (4.5-11.0)
[2017-11-23 21:41] LABS: VENOUS BLOOD GAS PO2 103 mm/Hg (30-55)
[2017-11-23 21:47] LABS: ALB/GLOB RATIO 1.4 (1.1-1.8); ALBUMIN 4.5 g/dL (3.0-4.8); ALT/SGPT 24 U/L (7-56); AST/SGOT 32 U/L (14-36); BLOOD UREA NITROGEN 10 mg/dL (7-21); CALCIUM 9.2 mg/dL (8.4-10.5); GFR AFRICAN-AMERICAN > 60; GFR NON-AFRICAN AMERICAN > 60
[2017-11-23 22:04] LABS: PH,URINE 6.5 (4.7-8.0); URINE BILIRUBIN NEGATIVE (NEGATIVE); URINE BLOOD SMALL (NEGATIVE); URINE GLUCOSE (UA) NEGATIVE (NEGATIVE); URINE LEUKOCYTE ESTERASE LARGE Leu/uL (NEGATIVE); URINE PROTEIN NEGATIVE mg/dL (<30 mg/dL); URINE UROBILINOGEN 0.2 E.U./dL (<1 E.U./dL)
[2017-11-23 22:05] LABS: URINE APPEARANCE SLIGHT-CLOUDY (CLEAR); URINE COLOR YELLOW (YELLOW)
[2017-11-23 22:07] LABS: URINE BACTERIA MANY (NEG); URINE WBC 25 - 30 /hpf (0-6)
[2017-11-23] MEDS ORDERED: DiphenhydrAMINE 50 mg/ml Inj IVP STA (22:13)
[2017-11-23 23:02] VITALS: RESP 17
[2017-11-23] MEDS ORDERED: cefTRIAXone 2 GM IN NS 2 GM/100 ML BAG IVPB STA (23:06)
[2017-11-24 00:08] VITALS: BP 101/60; PULSE 96; TEMP 98.8; O2SAT 100
--- NOTE | 2017-11-24 10:57 | RAD ---
HISTORY: Cough COMPARISON: 02/15/2015 FINDINGS: LUNGS: No active pulmonary disease. PLEURA: No significant pleural effusion identified, no pneumothorax apparent. CARDIOVASCULAR: Normal. OSSEOUS STRUCTURES: No significant abnormalities. VISUALIZED UPPER ABDOMEN: Normal. OTHER FINDINGS: None. IMPRESSION: No active disease.
== END 2017-11-24 00:08 | disposition home or self-care (01) ==
LOC: ED 19:52
DX: G35 Multiple sclerosis (principal); N39.0 Urinary tract infection, site not specified; R50.9 Fever, unspecified; Z87.891 Personal history of nicotine dependence
CPT/HCPCS: 71045; 80053; 81001; 81025; 82803; 85025; 87040; 87086; 96361; 96374; 96375; 99285; J0696; J1200; J1885; J2765; J7030

== ENCOUNTER 2018-03-22 14:39 | Emergency (ER) | payer OTHER ==
[2018-03-22 14:40] VITALS: BMI 25.0
[2018-03-22 15:56] VITALS: BP 110/70; PULSE 80; RESP 18; TEMP 99.3; O2SAT 99
[2018-03-22] MEDS ORDERED: Morphine 4 mg/ml ISec IVP STA (16:17)
[2018-03-22] MEDS ORDERED: methylPREDNISolone 1 GM in Sodium Chloride 0.9% 250 ML IV ONE (16:17)
[2018-03-22] MEDS ORDERED: Sodium Chloride 0.9% 500 ML IV STA (16:18)
--- NOTE | 2018-03-22 16:20 | ED PDOC ---
Arrival/HPI - General Chief Complaint: Back Pain Time Seen by Provider: 03/22/18 16:03 Historian: Patient - History of Present Illness Narrative History of Present Illness (Text): 03/22/18 16:17 27 year old female, with past medical history of MS with last flare up in 05/2017, presents to the Emergency Department complaining of generalized body pain associated with muscle spasms since 4-5 days. Patient describes the sensation as pins and needles associated with muscle spasms which has progressively worsened since onset limiting her ability to take care of her kids. Patient denies any fall, cervical spine injury or head trauma. Patient informs similar symptoms in the past consistent with her last MS flare up. Patient denies any fever, chills, nausea, vomiting, diarrhea, abdominal pain, chest pain, shortness of breath, headache, dizziness or any other complaints. Time/Duration: < week (5 days) Symptom Onset: Gradual Symptom Course: Worsening Quality: Aching Activities at Onset: Light Context: Home Past Medical History - Provider Review Nursing Documentation Reviewed: Yes - Infectious Disease Hx of Infectious Diseases: None - Tetanus Immunization Tetanus Immunization: Unknown - Reproductive Menopause: No - Cardiac Hx Cardiac Disorders: No - Pulmonary Hx Respiratory Disorders: Yes Hx Asthma: Yes - Neurological Hx Migraine: Yes Hx Multiple Sclerosis: Yes - HEENT Hx HEENT Disorder: No - Renal Hx Renal Disorder: Yes (renal stent) - Endocrine/Metabolic Hx Endocrine Disorders: No - Hematological/Oncological Hx Blood Disorders: No - Integumentary Hx Dermatological Disorder: No - Musculoskeletal/Rheumatological Hx Falls: No - Gastrointestinal Hx Gastroesophageal Reflux: Yes - Genitourinary/Gynecological Hx Genitourinary Disorders: No - Psychiatric Hx Anxiety: Yes Hx Substance Use: No - Surgical History Hx Cholecystectomy: Yes - Anesthesia Hx Anesthesia: Yes Hx Anesthesia Reactions: No Hx Malignant Hyperthermia: No - Suicidal Assessment Feels Threatened In Home Enviroment: No Family/Social History - Physician Review Nursing Documentation Reviewed: Yes Family/Social History: Unknown Family HX Smoking Status: Former Smoker Hx Alcohol Use: No (Socially) Hx Substance Use: No Hx Substance Use Treatment: No Allergies/Home Meds Allergies/Adverse Reactions: Allergies No Known Allergies Allergy (Verified 11/23/17 20:50) Review of Systems - Review of Systems Constitutional: absent: Fatigue, Fevers Eyes: absent: Vision Changes ENT: absent: Hearing Changes Respiratory: absent: SOB, Cough Cardiovascular: absent: Chest Pain Gastrointestinal: absent: Abdominal Pain, Diarrhea, Nausea, Vomiting Musculoskeletal: Arthralgias, Myalgias, Other (+spasm). absent: Back Pain, Neck Pain, Joint Swelling Skin: absent: Rash, Pruritis Neurological: absent: Headache, Dizziness Psychiatric: absent: Anxiety, Depression Physical Exam Vital Signs Reviewed: Yes Vital Signs Temp Pulse Resp BP Pulse Ox 03/22/18 15:44 99.3 F 80 18 110/70 99 Temperature: Afebrile Blood Pressure: Normal Pulse: Regular Respiratory Rate: Normal Appearance: Positive for: Well-Appearing, Non-Toxic Pain Distress: Severe Mental Status: Positive for: Alert and Oriented X 3 - Systems Exam Head: Present: Atraumatic, Normocephalic Pupils: Present: PERRL Extroacular Muscles: Present: EOMI Conjunctiva: Present: Normal Mouth: Present: Moist Mucous Membranes Neck: Present: Normal Range of Motion Respiratory/Chest: Present: Clear to Auscultation, Good Air Exchange. No: Respiratory Distress, Accessory Muscle Use Cardiovascular: Present: Regular Rate and Rhythm, Normal S1, S2. No: Murmurs Abdomen: No: Tenderness, Distention, Peritoneal Signs Back: Present: Normal Inspection Upper Extremity: Present: Normal Inspection, NORMAL PULSES, Capillary Refill < 2s. No: Cyanosis, Edema, Deformity Lower Extremity: Present: Normal Inspection, Neurovascularly Intact, Capillary Refill < 2 s. No: Edema, Deformity Neurological: Present: GCS=15, CN II-XII Intact, Speech Normal, Motor Func Grossly Intact, Memory Normal, Other (no drift, +spasm on the upper and lower extremities. ) Skin: Present: Warm, Dry, Normal Color. No: Rashes Psychiatric: Present: Alert, Oriented x 3, Normal Insight, Normal Concentration Medical Decision Making ED Course and Treatment: 03/22/18 16:20 -Labs/ESR/UA -CXR -IV solumedrol/morphine 03/22/18 18:36 -Urine hcg is negative -Labs show no acute findings except ast 111 (no abdominal pain, admits drinking alcohol) -UA show +UTI -Pt. feels improvement with medication given in the ER but would like more pain medication, percocet ordered. -I checked the [facility] report, there is no signs of drug abuse. -Pt. refused additional labs/radiology study, evaluation and IV medications including steroid along with neurologist evaluation, stated that she has kids at home and have to go. I explained that leaving is not the definitive choice for standard of care, pt. verbally expressed understanding. -Pt. refused repeat vital signs as well. Pt. would be go home with family member and she is not driving home. AMA ER The patient refuses to stay in the Emergency Room (ER) to continue the care and wishes to leave the emergency department against my medical advice. Patient was told that staying in the ER is necessary and a full explanation of the reasons why was given, and understood by the patient with alert and oriented x4. The risk of leaving were explained in laymans term and including but not limited to respiratory distress, worsening of spasm and fall with head/neck/back/extremity/abdominal/pelvic injury, bleed, seizure, sepsis, , organ failure, disability, pain, worsening of condition, permanent disability and from an undiagnosed or untreated condition. The patient accepts these risks, and is in my judgment is competent and capable of understanding the clinical situation and explanation of the risk of leaving. The patient is able to verbally repeat me back the above explained risks and benefits back to me, and verbally expressed understanding. Patient was given the opportunity to ask questions and change mind. The patient was instructed regarding the best care for the present symptoms, and to follow up as soon as possible with the primary care doctor including specialist or return to the emergency department at any time for continuing care. You sign out against medical advice. You are given keflex, flexeril and motrin (percocet for severe pain) for pain but this is not the best standard of care. You are advised to stay in the hospital for IV steroid and pain medication but you declined. You can return to the ER anytime as you would like to for continuity of care. Please follow up with your own pmd and specialist within 1- 2 days, return to the ER for any new or worsening signs or symptoms. - RAD Interpretation Radiology Orders: 03/22/18 16:17 CHEST ONE VIEW [RAD] Stat 03/22/2018 HISTORY: medical clearance COMPARISON: 11/23/2017 FINDINGS: LUNGS: No active pulmonary disease. PLEURA: No significant pleural effusion identified, no pneumothorax apparent. CARDIOVASCULAR: Normal. OSSEOUS STRUCTURES: No significant abnormalities. VISUALIZED UPPER ABDOMEN: Normal. OTHER FINDINGS: None. IMPRESSION: No active disease. No significant interval change compared to the prior examination(s). Concordant results with the preliminary interpretation rendered by the emergency department physician\PA at the conclusion of the procedure. Policy Services Representative: Radiologist - Medication Orders Current Medication Orders: Methylprednisolone 1 gm/ (Sodium Chloride) 250 mls @ 500 mls/hr IV ONCE ONE Stop: 03/22/18 16:46 Morphine Sulfate (Morphine) 4 mg IVP STAT STA Stop: 03/22/18 16:18 - PA / LAPEL BASTER / Resident Statement MD/DO has reviewed & agrees with the documentation as recorded. - Scribe Statement The provider has reviewed the documentation as recorded by the Scribe Andreea Angela. All medical record entries made by the Scribe were at my direction and personally dictated by me. I have reviewed the chart and agree that the record accurately reflects my personal performance of the history, physical exam, medical decision making, and the department course for this patient. I have also personally directed, reviewed, and agree with the discharge instructions and disposition. Disposition/Present on Arrival - Present on Arrival Any Indicators Present on Arrival: No History of DVT/PE: No History of Uncontrolled Diabetes: No Urinary Catheter: No History of Decub. Ulcer: No History Surgical Site Infection Following: None - Disposition Have Diagnosis and Disposition been Completed?: Yes Diagnosis: Multiple sclerosis, Spasm, Pain, UTI (urinary tract infection) Disposition: AGAINST MEDICAL ADVICE Disposition Time: 17:43 Patient Problems: Current Active Problems Problem Status Onset Multiple sclerosis Acute Pain Acute Spasm Acute Condition: GOOD Additional Instructions: You sign out against medical advice. You are given keflex, flexeril and motrin (percocet for severe pain) for pain but this is not the best standard of care. You are advised to stay in the hospital for IV steroid and pain medication but you declined. You can return to the ER anytime as you would like to for continuity of care. Please follow up with your own pmd and specialist within 1- 2 days, return to the ER for any new or worsening signs or symptoms. Prescriptions: Cephalexin [Keflex] 500 mg PO TID #21 capsule Cyclobenzaprine [Cyclobenzaprine HCl] 10 mg PO TID PRN #21 tab PRN Reason: Other Ibuprofen [Motrin] 600 mg PO QID PRN #30 tab PRN Reason: Other oxyCODONE/Acetaminophen [Percocet 5/325 mg Tab] 1 tab PO TID PRN #12 tab PRN Reason: Other Referrals: Jonh Burden MD [Primary Care Provider] - Follow up with primary Leon Boston MD [Staff Provider] - Follow up with primary Forms: [facility] ([place]), WORK NOTE
[2018-03-22 17:15] LABS: ALB/GLOB RATIO 1.3 (1.1-1.8); ALBUMIN 4.4 g/dL (3.0-4.8); ALT/SGPT 41 U/L (7-56); AST/SGOT 111 U/L (14-36); BASO # 0.03 K/mm3 (0.0-2.0); BASO % 0.3 % (0.0-3.0); BLOOD UREA NITROGEN 14 mg/dL (7-21); EOS # 0.2 (0.0-0.7); EOS % 1.8 % (1.5-5.0); GFR NON-AFRICAN AMERICAN > 60; GRAN # 7.15 (1.4-6.5); GRAN % 68.9 % (50.0-68.0); HEMOGLOBIN 9.9 g/dL (12.0-16.0); LYMPH # 2.6 (1.2-3.4); LYMPH % 25.2 % (22.0-35.0); MEAN CELL VOLUME 70.4 fl (80.0-105.0); MEAN CORPUSCULAR HEMOGLOBIN 21.9 pg (25.0-35.0); MONO # 0.4 (0.1-0.6); MONO % 3.8 % (1.0-6.0); RBC 4.53 10^6/uL (3.5-6.1); RED CELL DISTRIBUTION WIDTH 17.1 % (11.5-14.5); WHITE BLOOD COUNT 10.4 10^3/ul (4.5-11.0)
[2018-03-22] MEDS ORDERED: Oxycodone/Acetaminophen 5/325 mg Tab PO STA (17:53)
[2018-03-22 17:58] LABS: URINE BILIRUBIN NEGATIVE (NEGATIVE); URINE BLOOD NEGATIVE (NEGATIVE); URINE GLUCOSE (UA) NEGATIVE (NEGATIVE); URINE LEUKOCYTE ESTERASE MODERATE Leu/uL (NEGATIVE); URINE PROTEIN NEGATIVE mg/dL (<30 mg/dL); URINE UROBILINOGEN 0.2 E.U./dL (<1 E.U./dL)
[2018-03-22 18:04] LABS: URINE APPEARANCE SLIGHT-CLOUDY (CLEAR); URINE COLOR YELLOW (YELLOW)
--- NOTE | 2018-03-22 18:12 | RAD ---
Date of service: 03/22/2018 HISTORY: medical clearance COMPARISON: 11/23/2017 FINDINGS: LUNGS: No active pulmonary disease. PLEURA: No significant pleural effusion identified, no pneumothorax apparent. CARDIOVASCULAR: Normal. OSSEOUS STRUCTURES: No significant abnormalities. VISUALIZED UPPER ABDOMEN: Normal. OTHER FINDINGS: None. IMPRESSION: No active disease. No significant interval change compared to the prior examination(s). Concordant results with the preliminary interpretation rendered by the emergency department physician procedure.
[2018-03-22 18:13] LABS: URINE AMORPHOUS SEDIMENT SMALL; URINE EPITHELIAL CELLS MANY /hpf (0-5); URINE WBC 15 - 20 /hpf (0-6)
== END 2018-03-22 18:57 | disposition left against medical advice (07) ==
LOC: ED 14:39
DX: G35 Multiple sclerosis (principal); N39.0 Urinary tract infection, site not specified; R25.2 Cramp and spasm; Z87.891 Personal history of nicotine dependence
CPT/HCPCS: 71045; 80053; 81001; 85025; 85651; 87086; 96374; 99282; J2270; J2930; J7040

== ENCOUNTER 2018-08-20 21:01 | Inpatient (IN) | payer OTHER | END 2018-08-27 21:49 | LOC: ERH 08-21 00:05 → 3RSO 08-24 22:56 → ERH 08-21 00:15 → 3RNO 08-22 11:36 → ED 21:01 ==

== ENCOUNTER 2018-09-23 16:53 | Inpatient (IN) | payer OTHER ==
[2018-09-23] MEDS ORDERED: methylPREDNISolone 1 GM in Sodium Chloride 0.9% 250 ML IV ONE (18:15)
--- NOTE | 2018-09-23 18:19 | ED PDOC ---
Arrival/HPI - General Chief Complaint: Weakness/Neurological Deficit Time Seen by Provider: 09/23/18 17:44 Historian: Patient - History of Present Illness Narrative History of Present Illness (Text): 09/23/18 17:44 28 year old female, with a past medical history of asthma, nephrolithiasis, dyspepsia, multiple sclerosis, and migraines, presents to the ED for evaluation of right sided weakness/numbness consistent with her MS flares since today. Patient reports recent admission for MS flare on 08/21/18 and was discharged home on 08/27/18 after improved symptoms. She notes following up with Dr. Boston last week and feeling fine until today when she experienced similar symptoms, prompting patient to present to the ED for evaluation. Patient denies any other associated somatic complaints. Patient denies any fevers, chills, headache, dizziness, chest pain, shortness of breath, dyspnea on exertion, cough, abdominal pain, nausea, vomiting, diarrhea, back pain, neck pain, urinary symptoms, or any other complaints. Time/Duration: 1-3 hours Symptom Onset: Gradual Symptom Course: Unchanged Activities at Onset: Light Context: Home Past Medical History - Provider Review Nursing Documentation Reviewed: Yes - Infectious Disease Hx of Infectious Diseases: None - Tetanus Immunization Tetanus Immunization: Unknown - Reproductive Menopause: No - Cardiac Hx Cardiac Disorders: No - Pulmonary Hx Respiratory Disorders: No - Neurological Hx Neurological Disorder: Yes Other/Comment: Multiple Sclerosis - HEENT Hx HEENT Disorder: Yes Other/Comment: Wears glasses - Renal Hx Kidney Stones: Yes Other/Comment: Stents due to stones - Endocrine/Metabolic Hx Endocrine Disorders: No - Hematological/Oncological Hx Blood Disorders: No - Integumentary Hx Dermatological Disorder: No - Musculoskeletal/Rheumatological Hx Falls: No Hx Unsteady Gait: Yes - Gastrointestinal Hx Gastroesophageal Reflux: Yes - Genitourinary/Gynecological Hx Genitourinary Disorders: No - Psychiatric Hx Psychophysiologic Disorder: No Hx Substance Use: No - Surgical History Hx Cholecystectomy: Yes - Anesthesia Hx Anesthesia: Yes Hx Anesthesia Reactions: No Hx Malignant Hyperthermia: No - Suicidal Assessment Feels Threatened In Home Enviroment: No Family/Social History - Physician Review Nursing Documentation Reviewed: Yes Family/Social History: Unknown Family HX Smoking Status: Light Smoker < 10 Cigarettes Daily Hx Alcohol Use: No Hx Substance Use: No Hx Substance Use Treatment: No Allergies/Home Meds Allergies/Adverse Reactions: Allergies No Known Allergies Allergy (Verified 08/20/18 21:20) Home Medications: Home Meds Medication Instructions Recorded Confirmed Gabapentin [Neurontin] 400 mg PO TID 09/23/18 09/23/18 Review of Systems - Review of Systems Constitutional: absent: Fevers Eyes: absent: Vision Changes Respiratory: absent: SOB, Cough Cardiovascular: absent: Chest Pain Gastrointestinal: absent: Abdominal Pain, Diarrhea, Nausea, Vomiting Genitourinary Female: absent: Dysuria, Urine Output Changes Musculoskeletal: absent: Back Pain, Neck Pain Skin: absent: Rash Neurological: Other (Right sided numbness/weakness). absent: Headache, Dizziness Endocrine: absent: Diaphoresis Psychiatric: absent: Anxiety Physical Exam Vital Signs Reviewed: Yes Vital Signs Temp Pulse Resp BP Pulse Ox 09/23/18 17:05 98.7 F 74 18 108/67 98 Temperature: Afebrile Blood Pressure: Normal Pulse: Regular Respiratory Rate: Normal Appearance: Positive for: Well-Appearing, Non-Toxic, Comfortable Pain Distress: None Mental Status: Positive for: Alert and Oriented X 3 - Systems Exam Head: Present: Atraumatic, Normocephalic Pupils: Present: PERRL Extroacular Muscles: Present: EOMI Conjunctiva: Present: Normal Respiratory/Chest: Present: Clear to Auscultation, Good Air Exchange. No: Respiratory Distress, Accessory Muscle Use Cardiovascular: Present: Regular Rate and Rhythm, Normal S1, S2. No: Murmurs Abdomen: No: Tenderness, Distention, Peritoneal Signs Upper Extremity: Present: Other (Right upper extremity weakness. Able to move fingers.). No: Cyanosis, Edema Lower Extremity: Present: Other (Right lower extremity weakness. Able to wigggle toes on the right side but unable to lift leg from the bed.). No: Edema Neurological: Present: GCS=15, Speech Normal, Other (Weakness noted to right upper and lower extremities) Skin: Present: Warm, Dry, Normal Color. No: Rashes Psychiatric: Present: Alert, Oriented x 3, Normal Insight, Normal Concentration Medical Decision Making ED Course and Treatment: 09/23/18 17:44 Impression: 28 year old female presents to the ED for evaluation of MS flare consisting of right sided numbness/weakness. Plan: -- Labs -- Chest X-ray -- MRI of Brain -- Solumedrol -- Urinalysis -- Reassess and disposition Prior Visits: Notes and results from previous visits were reviewed. Progress Notes: 09/23/18 18:[address] Boston, who is aware and agrees with ED management plan, requests MRI of the brain. Dr. Boston will follow patient, who will be admitted for Observation secondary to MS flare. Patient unable to be discharged due to inability to ambulate due to weakness. Steroids ordered on arrival 09/23/18 18:[address] Luna, who is aware and agrees with ED management plan, accepts patient admission under his service. 09/23/18 18:25 Patient reports claustrophobia and requests something to help go through MRI. 1 mg Ativan ordered. 09/23/18 19:34 UA shows ?uti as +leukocytes and +5-10 wbc. 1 dose of rocephin given pending ucx 09/23/18 19:35 - RAD Interpretation Radiology Orders: 09/23/18 17:44 CHEST PORTABLE [RAD] Stat 09/23/18 18:10 BRAIN WITHOUT CONTRAST [MRI] Stat - Medication Orders Current Medication Orders: Methylprednisolone (Solu-Medrol) 1,000 mg IVP STAT STA Stop: 09/23/18 18:10 - Scribe Statement The provider has reviewed the documentation as recorded by the Scribe Andreea Angela. All medical record entries made by the Scribe were at my direction and personally dictated by me. I have reviewed the chart and agree that the record accurately reflects my personal performance of the history, physical exam, medical decision making, and the department course for this patient. I have also personally directed, reviewed, and agree with the discharge instructions and disposition. Disposition/Present on Arrival - Present on Arrival Any Indicators Present on Arrival: No History of DVT/PE: No History of Uncontrolled Diabetes: No Urinary Catheter: No History of Decub. Ulcer: No History Surgical Site Infection Following: None - Disposition Have Diagnosis and Disposition been Completed?: Yes Diagnosis: UTI (urinary tract infection), Multiple sclerosis Disposition: HOSPITALIZED Disposition Time: 17:05 Patient Plan: Observation Patient Problems: Current Active Problems Problem Status Onset Multiple sclerosis Acute UTI (urinary tract infection) Acute Condition: FAIR
[2018-09-23 19:00] LABS: ALB/GLOB RATIO 1.3 (1.1-1.8); ALBUMIN 4.3 g/dL (3.0-4.8); ALT/SGPT 18 U/L (7-56); AST/SGOT 33 U/L (14-36); BLOOD UREA NITROGEN 15 mg/dL (7-21); CALCIUM 9.7 mg/dL (8.4-10.5); GFR NON-AFRICAN AMERICAN > 60
[2018-09-23 19:08] LABS: BASO # 0.04 K/mm3 (0.0-2.0); BASO % 0.5 % (0.0-3.0); EOS # 0.1 (0.0-0.7); EOS % 1.1 % (1.5-5.0); HEMOGLOBIN 11.7 g/dL (12.0-16.0); LYMPH # 2.8 (1.2-3.4); LYMPH % 34.3 % (22.0-35.0); MEAN CELL VOLUME 79.8 fl (80.0-105.0); MEAN CORPUSCULAR HEMOGLOBIN 24.9 pg (25.0-35.0); MEAN CORPUSCULAR HGB CONC 31.2 g/dl (31.0-37.0); MEAN PLATELET VOLUME 9.9 fl (7.0-11.0); MONO # 0.5 (0.1-0.6); MONO % 6.2 % (1.0-6.0); RBC 4.7 10^6/uL (3.5-6.1); RED CELL DISTRIBUTION WIDTH 25.9 % (11.5-14.5); WHITE BLOOD COUNT 8.1 10^3/uL (4.5-11.0)
[2018-09-23 19:09] LABS: PH,URINE 6.5 (4.7-8.0); URINE BILIRUBIN NEGATIVE (NEGATIVE); URINE BLOOD NEGATIVE (NEGATIVE); URINE GLUCOSE (UA) NEGATIVE (NEGATIVE); URINE LEUKOCYTE ESTERASE SMALL Leu/uL (NEGATIVE); URINE PROTEIN NEGATIVE mg/dL (<30 mg/dL); URINE UROBILINOGEN 0.2 E.U./dL (<1 E.U./dL)
[2018-09-23 19:16] LABS: URINE APPEARANCE CLEAR (CLEAR)
[2018-09-23] MEDS ORDERED: Morphine 4 mg/ml ISec IVP STA (19:48)
[2018-09-23 22:59] VITALS: BMI 30.4
[2018-09-24] MEDS ORDERED: Morphine 2 mg/ml ISec IVP ONE (01:08)
[2018-09-24] MEDS: HYDROmorphone 0.5 mg/0.5 ml ISec IVP PRN ×2 (05:30→10:12)
--- NOTE | 2018-09-24 08:12 | RAD ---
HISTORY: MS flare COMPARISON: Chest x-ray performed 08/20/18 TECHNIQUE: Chest, one view. FINDINGS: Numerous external wires and leads obscure evaluation of the underlying parenchyma. LUNGS: No focal consolidation. Please note that chest x-ray has limited sensitivity for the detection of pulmonary masses. PLEURA: No significant pleural effusion identified. No definite pneumothorax . CARDIOVASCULAR: The cardiomediastinal silhouette appears within normal limits of size. No significant atherosclerotic calcification present. OSSEOUS STRUCTURES: No acute osseous abnormality identified. VISUALIZED UPPER ABDOMEN: Unremarkable. OTHER FINDINGS: None. IMPRESSION: No acute findings.
--- NOTE | 2018-09-24 09:37 | MRI ---
Date of service: 09/23/2018 PROCEDURE: MRI BRAIN WITHOUT CONTRAST HISTORY: MS, now with R sided weakness COMPARISON: 08/21/2018 TECHNIQUE: Multiplanar, multisequence MR images of the brain were obtained without intravenous contrast enhancement. FINDINGS: HEMORRHAGE: None DWI: No evidence of an acute or early subacute infarction. BRAIN PARENCHYMA: No mass effect or edema. Extensive demyelinating disease is again demonstrated in the periventricular and subcortical white matter of both hemispheres. Findings are unchanged. VENTRICLES: Unremarkable. No hydrocephalus. CRANIUM: Unremarkable. ORBITS: Grossly unremarkable. PARANASAL SINUSES/MASTOIDS: Clear VASCULAR SYSTEM: Skull base flow voids intact. OTHER FINDINGS: The report concurs with the preliminary [facility] report IMPRESSION: Extensive demyelinating disease is again demonstrated in the periventricular and subcortical white matter of both hemispheres. Findings are unchanged. No acute intracranial findings
[2018-09-24] MEDS ORDERED: cefTRIAXone 1 gm 1 GM/100 ML BAG IVPB SCH (10:00)
--- NOTE | 2018-09-24 11:40 | CP.PCM.HP ---
<Yogi Hughes - Last Filed: 09/24/18 11:46> History of Present Illness - History of Present Illness History of Present Illness: Inocencio Hughes PGY2 - History and Physical for Dr. Luna CC: Right sided facial numbness, right sided weakness HPI: 28 year old female with past medical history significant for asthma, nephrolithiasis, dyspepsia, migraines and Multiple Sclerosis who presented to [facility] ED complaining of 24 hour history of right sided facial numbness and right sided weakness. Patient indicates that she was recently admitted to [facility] for similar symptoms. Upon discharge she was at a sub acute rehab where she was able to improve her strength and felt fine upon discharge. She followed up with her neurologist Dr. Boston outpatient and reported remission of symptoms until y esterday. She denies sick contacts, feeling sick, new medications, chest pain, shortness of breath, abdominal discomfort, nausea, vomiting, fever, chills. She does report progressive loss of her vision especially at night, sharp shooting pains through her right lower and upper extremity. She indicates this episode is very similar to the one prior. She is concerned regarding the acute timing and short interval from her previous episode. 12 point ROS benign other than mentioned IN HPI PMH: asthma, nephrolithiasis, dyspepsia, multiple sclerosis, and migraines PSH: Left renal stent placement x 2 (2016), abdominoplasty (2014) SOCHX: Tobacco: 0.5 PPD for 17 years, ETOH: Denies, ID: Denies ALL: NKDA MEDS: MAR Reviewed Neurologist: Dr. Boston Present on Admission - Present on Admission Any Indicators Present on Admission: No Review of Systems - Review of Systems All systems: reviewed and no additional remarkable complaints except (as mentioned in HPI) Past Patient History - Infectious Disease Hx of Infectious Diseases: None - Tetanus Immunizations Tetanus Immunization: Unknown - Past Medical History & Family History Past Medical History?: Yes - Past Social History Smoking Status: Light Smoker < 10 Cigarettes Daily - CARDIAC Hx Cardiac Disorders: No - PULMONARY Hx Respiratory Disorders: No - NEUROLOGICAL Hx Neurological Disorder: Yes Other/Comment: Multiple Sclerosis - HEENT Hx HEENT Problems: Yes Other/Comment: Wears glasses - RENAL Hx Kidney Stones: Yes Other/Comment: Stents due to stones - ENDOCRINE/METABOLIC Hx Endocrine Disorders: No - HEMATOLOGICAL/ONCOLOGICAL Hx Blood Disorders: No - INTEGUMENTARY Hx Dermatological Problems: No - MUSCULOSKELETAL/RHEUMATOLOGICAL Hx Falls: No Hx Unsteady Gait: Yes - GASTROINTESTINAL Hx Gastroesophageal Reflux: Yes - GENITOURINARY/GYNECOLOGICAL Hx Genitourinary Disorders: No - PSYCHIATRIC Hx Psychophysiologic Disorder: No Hx Substance Use: No - SURGICAL HISTORY Hx Cholecystectomy: Yes - ANESTHESIA Hx Anesthesia: Yes Hx Anesthesia Reactions: No Hx Malignant Hyperthermia: No Meds Allergies/Adverse Reactions: Allergies Allergy/AdvReac Type Severity Reaction Status Date / Time No Known Allergies Allergy Verified 08/20/18 21:20 Physical Exam - Constitutional Appears: No Acute Distress - Head Exam Head Exam: ATRAUMATIC, NORMOCEPHALIC - Eye Exam Eye Exam: EOMI, Nystagmus, PERRL - ENT Exam ENT Exam: Mucous Membranes Moist - Neck Exam Neck exam: Positive for: Full Rom - Respiratory Exam Respiratory Exam: Clear to Auscultation Bilateral, NORMAL BREATHING PATTERN. absent: Rales, Rhonchi, Wheezes - Cardiovascular Exam Cardiovascular Exam: REGULAR RHYTHM, +S1, +S2 - GI/Abdominal Exam GI & Abdominal Exam: Normal Bowel Sounds, Soft. absent: Distended, Firm, Guarding - Extremities Exam Extremities exam: Negative for: calf tenderness, pedal edema - Neurological Exam Neurological exam: Alert, Oriented x3 Additional comments: RUE 3/5 strength, RLE 3/5 strength, Left upper and lower extremities 5/5 strength, Right sided sensation is limited and blunted, gait is unsteady - Psychiatric Exam Psychiatric exam: Normal Affect, Normal Mood - Skin Skin Exam: Dry, Warm Results - Vital Signs Recent Vital Signs: Last Vital Signs Temp 98 F 09/24/18 08:26 Pulse 61 09/24/18 08:26 Resp 18 09/24/18 08:26 BP 90/54 L 09/24/18 08:26 Pulse Ox 94 L 09/24/18 08:26 - Labs Result Diagrams: 09/23/18 18:41 09/23/18 18:41 Labs: Laboratory Results - last 24 hr 09/23/18 09/23/18 09/23/18 18:28 18:40 18:41 WBC 8.1 D RBC 4.70 Hgb 11.7 L D Hct 37.5 MCV 79.8 L D MCH 24.9 L MCHC 31.2 RDW 25.9 H Plt Count 397 MPV 9.9 Neut % (Auto) 57.9 Lymph % (Auto) 34.3 Armstrong % (Auto) 6.2 H Eos % (Auto) 1.1 L Baso % (Auto) 0.5 Lymph # (Auto) 2.8 Armstrong # (Auto) 0.5 Eos # (Auto) 0.1 Baso # (Auto) 0.04 Absolute Neuts (auto) 4.69 Sodium Potassium Chloride Carbon Dioxide Anion Gap BUN Creatinine Est GFR ( Amer) Est GFR (Non-Af Amer) POC Glucose (mg/dL) 87 Random Glucose Calcium Total Bilirubin AST ALT Alkaline Phosphatase Total Protein Albumin Globulin Albumin/Globulin Ratio Urine Color yellow Urine Appearance Clear Urine pH 6.5 Ur Specific [place] 1.020 Urine Protein Negative Urine Glucose (UA) Negative Urine Ketones Negative Urine Blood Negative Urine Nitrate Negative Urine Bilirubin Negative Urine Urobilinogen 0.2 Ur Leukocyte Esterase Small H Urine RBC TEST NOT PERFORMED Urine WBC 5 - 10 H Ur Epithelial Cells 6 - 8 H 09/23/18 18:41 WBC RBC Hgb Hct MCV MCH MCHC RDW Plt Count MPV Neut % (Auto) Lymph % (Auto) Armstrong % (Auto) Eos % (Auto) Baso % (Auto) Lymph # (Auto) Armstrong # (Auto) Eos # (Auto) Baso # (Auto) Absolute Neuts (auto) Sodium 141 Potassium 4.0 Chloride 108 H Carbon Dioxide 25 Anion Gap 12 BUN 15 Creatinine 0.8 Est GFR ( Amer) > 60 Est GFR (Non-Af Amer) > 60 POC Glucose (mg/dL) Random Glucose 83 Calcium 9.7 Total Bilirubin < 0.1 L AST 33 ALT 18 Alkaline Phosphatase 70 Total Protein 7.6 Albumin 4.3 Globulin 3.3 Albumin/Globulin Ratio 1.3 Urine Color Urine Appearance Urine pH Ur Specific [place] Urine Protein Urine Glucose (UA) Urine Ketones Urine Blood Urine Nitrate Urine Bilirubin Urine Urobilinogen Ur Leukocyte Esterase Urine RBC Urine WBC Ur Epithelial Cells Assessment & Plan - Assessment and Plan (Free Text) Assessment: Multiple Sclerosis Flare Migraines Asthma Anemia Asymptomatic UTI Patient previous MRI imaging from 08/2018 reviewed and appreciated. Patient was given IV steroids in ED, plan to continue IV solumedrol 1 gram daily for treatment of Multiple Sclerosis flare. Dr. Boston with neurology is consulted, will follow up recommendations. Patient to have physical therapy for evaluation and treatment. MRI from 09/23/2018 showing extensive demyelinating disease in the periventricular and subcortical white matter of both hemispheres. Findings appear to be unchanged from previous imaging. No acute intracranial findings. Will order urine culture and follow up for further antibiotic management in regard to urinalysis showing trace leukocyte esterase and WBCs. Patient to be made inpatient for further evaluation and treatment of MS flare. Will monitor labs closely going further. Patient seen, case and plan discussed with attending, Dr. Luna <Artie Luna - Last Filed: 09/24/18 12:16> Results - Vital Signs Recent Vital Signs: Last Vital Signs Temp 98 F 09/24/18 08:26 Pulse 61 09/24/18 08:26 Resp 18 09/24/18 08:26 BP 90/54 L 09/24/18 08:26 Pulse Ox 94 L 09/24/18 08:26 - Labs Result Diagrams: 09/23/18 18:41 09/23/18 18:41 Labs: Laboratory Results - last 24 hr 09/23/18 09/23/18 09/23/18 18:28 18:40 18:41 WBC 8.1 D RBC 4.70 Hgb 11.7 L D Hct 37.5 MCV 79.8 L D MCH 24.9 L MCHC 31.2 RDW 25.9 H Plt Count 397 MPV 9.9 Neut % (Auto) 57.9 Lymph % (Auto) 34.3 Armstrong % (Auto) 6.2 H Eos % (Auto) 1.1 L Baso % (Auto) 0.5 Lymph # (Auto) 2.8 Armstrong # (Auto) 0.5 Eos # (Auto) 0.1 Baso # (Auto) 0.04 Absolute Neuts (auto) 4.69 Sodium Potassium Chloride Carbon Dioxide Anion Gap BUN Creatinine Est GFR ( Amer) Est GFR (Non-Af Amer) POC Glucose (mg/dL) 87 Random Glucose Calcium Total Bilirubin AST ALT Alkaline Phosphatase Total Protein Albumin Globulin Albumin/Globulin Ratio Urine Color yellow Urine Appearance Clear Urine pH 6.5 Ur Specific [place] 1.020 Urine Protein Negative Urine Glucose (UA) Negative Urine Ketones Negative Urine Blood Negative Urine Nitrate Negative Urine Bilirubin Negative Urine Urobilinogen 0.2 Ur Leukocyte Esterase Small H Urine RBC TEST NOT PERFORMED Urine WBC 5 - 10 H Ur Epithelial Cells 6 - 8 H 09/23/18 18:41 WBC RBC Hgb Hct MCV MCH MCHC RDW Plt Count MPV Neut % (Auto) Lymph % (Auto) Armstrong % (Auto) Eos % (Auto) Baso % (Auto) Lymph # (Auto) Armstrong # (Auto) Eos # (Auto) Baso # (Auto) Absolute Neuts (auto) Sodium 141 Potassium 4.0 Chloride 108 H Carbon Dioxide 25 Anion Gap 12 BUN 15 Creatinine 0.8 Est GFR ( Amer) > 60 Est GFR (Non-Af Amer) > 60 POC Glucose (mg/dL) Random Glucose 83 Calcium 9.7 Total Bilirubin < 0.1 L AST 33 ALT 18 Alkaline Phosphatase 70 Total Protein 7.6 Albumin 4.3 Globulin 3.3 Albumin/Globulin Ratio 1.3 Urine Color Urine Appearance Urine pH Ur Specific [place] Urine Protein Urine Glucose (UA) Urine Ketones Urine Blood Urine Nitrate Urine Bilirubin Urine Urobilinogen Ur Leukocyte Esterase Urine RBC Urine WBC Ur Epithelial Cells Assessment & Plan - Assessment and Plan (Free Text) Assessment: Patient was seen and examined by me. I have reviewed the note of the medical illustrator and have gone over the plan of care. I agree with the note. I have reviewed the medications and the last labs.
[2018-09-24] MEDS ORDERED: Oxycodone/Acetaminophen 5/325 mg Tab PO PRN (14:47)
--- NOTE | 2018-09-24 16:53 | CON ---
DATE: 09/24/2018 CHIEF COMPLAINT: Worsening right-sided weakness. HISTORY OF PRESENT ILLNESS: This is a 28-year-old woman, who is well known to me with history of dyspepsia, migraines and multiple sclerosis, came here for worsening right-sided facial numbness and right-sided weakness, status post dose of IV Solu-Medrol. She recently saw me in my office one week ago. We are working on disease-modifying agent in terms of intravenous Ocrevus for her underlying multiple sclerosis. She had an MRI of the brain which showed just numerous extensive demyelinating disease, but no new lesions, no new changes from her previous MRI. She has some right-sided weakness on exam. PAST MEDICAL HISTORY: As above. FAMILY HISTORY: Noncontributory. SOCIAL HISTORY: No illicit drug use, smoking, or EtOH abuse. REVIEW OF SYSTEMS: A 14-point review of systems is negative except as per the HPI. MEDICATIONS: Reviewed by nurse reconciliation sheet. ALLERGIES: NO KNOWN DRUG ALLERGIES. LABORATORY DATA: Sodium is 141, potassium is 4, chloride 108, carbon dioxide 25, BUN of 15, creatinine 0.8, and random glucose of 87. IMPRESSION: Mild multiple sclerosis exacerbation, who is a well-known patient to me. RECOMMENDATIONS: 1. She will follow with me in outpatient for her disease-modifying agent intravenous Ocrevus which we have been working on. 2. Continue with gabapentin 300 p.o. for neuropathic relief. 3. We will continue two more days of IV Solu-Medrol 1 g and will follow with me as an outpatient since outpatient physical therapy setup. Leon Boston MD
[2018-09-24] MEDS ORDERED: HYDROmorphone 0.5 mg/0.5 ml ISec IM ONE (17:52)
[2018-09-24] MEDS: Morphine 2 mg/ml ISec IVP PRN (22:31)
--- NOTE | 2018-09-24 22:59 | HP ---
DATE: 09/24/2018 HISTORY OF PRESENT ILLNESS: The patient was seen and examined. I do agree with the note of the biomedical electronics technician. I was involved in the plan of care. The patient states that she started having right-sided facial numbness and weakness as well as leg weakness. This was similar to the flare that she had of her MS on the previous admission. The patient states she has been having difficulty in ambulating and holding things. She was not able to hold her child. She is concerned that her symptoms have worsened. She says that she does get a tingling feeling, but this was worse in the legs and different from the previous tingling. The patient has no complaints of any chest pain or shortness of breath. No abdominal pain. No back pain. No dysuria or frequency. No nocturia. She has difficult time in ambulating because of the weakness of the right leg. She states that her right eye is almost blind. She has not had any significant improvement since she left the facility where she was getting rehab. She was seen by Dr. Boston 4 days ago and she has signed consent to get further treatment for multiple sclerosis. She has no dysuria, frequency or nocturia. No back pain. No knee pain. REVIEW OF SYSTEMS: All review of systems are within normal limits as that was mentioned. PAST MEDICAL HISTORY: Nephrolithiasis, asthma, multiple sclerosis, and migraine headaches. SOCIAL HISTORY: She did smoke half a pack per day for 17 years. She denies alcohol. PAST SURGICAL HISTORY: She has left renal stent placement and abdominoplasty in 2013. ALLERGIES: NO KNOWN DRUG ALLERGIES. HOME MEDICATIONS: Medications have been reviewed on the AUG. She is on gabapentin. The patient has been given IV steroids. She will continue with her pulsed dose of IV steroids. She is on Neurontin for neuropathy. PLAN: She is on a regular diet. I will put Dr. Boston to consult. The patient will need physical therapy. Overall prognosis is guarded given that she is having multiple flare-ups and that are severe and she is not recovered fully. She states she is disability at this point from her job and is concerned that she may lose the job because she is not able to perform her duty. Artie Luna MD
[2018-09-25] MEDS: Morphine 2 mg/ml ISec IVP PRN ×5 (05:45→22:31)
[2018-09-25] MEDS ORDERED: MORPHINE PO PRN (08:23)
[2018-09-25] MEDS ORDERED: methylPREDNISolone 1 GM in Sodium Chloride 0.9% 250 ML IV ONE (10:00)
[2018-09-25] MEDS ORDERED: Cefpodoxime (Vantin) 200 mg Tab PO SCH (10:00)
--- NOTE | 2018-09-25 13:16 | PN ---
DATE: 09/25/2018 SUBJECTIVE: The patient has no complaints of any chest pain, shortness of breath, or headache. She continues to have weakness in the right arm. She said she does have pain but better with morphine, the Percocet causes her to get drowsy. PHYSICAL EXAMINATION: VITAL SIGNS: Temperature is 98, pulse of 65, blood pressure 99/63, respirations 20. GENERAL: The patient is lying in bed, flat, comfortable. HEENT: No oral lesion. Anicteric sclerae. Moist mucosa. NECK: No JVD, adenopathy, or thyromegaly. CARDIOVASCULAR: S1 and S2, regular. No murmurs, rubs, or gallops. LUNGS: Clear to auscultation bilaterally. No wheeze, rales, or rhonchi. ABDOMEN: Bowel sounds are positive, soft, nontender and nondistended. EXTREMITIES: No cyanosis, clubbing or edema. Right arm, there is 4/5 power. Right leg, there is 4/5 power. In the right distal arm, she has 3/5 power. LABORATORY DATA: White count of 8.1, hemoglobin 11.7, creatinine 0.8. ASSESSMENT: 1. Acute multiple sclerosis flare. 2. Nephrolithiasis. 3. Asthma. PLAN: She will need a disease modifying agent for her MS. She is being evaluated by Dr. Boston for this as an outpatient. She is continued on her gabapentin for neuropathic pain. She is on Solu-Medrol, this will be continued. I did review the note of Dr. Boston, I appreciate his input. I placed the patient on morphine orally so that she can have better pain control with oral medications. Artie Luna MD
[2018-09-25 18:44] VITALS: RESP 20; TEMP 98.1
[2018-09-26] MEDS: Morphine 2 mg/ml ISec IVP PRN (02:32)
[2018-09-26] MEDS: Morphine 10 mg/5 ml Oral Soln PO PRN ×2 (07:58→12:40)
[2018-09-26 08:30] VITALS: BP 113/70; PULSE 46; O2SAT 96
--- NOTE | 2018-09-26 13:28 | DS ---
HISTORY OF PRESENT ILLNESS: The patient has no complaints of any chest pain,shortness of breath. She actually came to the hospital because of right-sided arm and leg weakness secondary to flare of multiple sclerosis. The patient was at home, after she was discharged from physical therapy and doing well. She had another acute exacerbation. She was admitted to the hospital and was given Solu-Medrol. She was seen by Dr. Boston. The patient does have moving of the right arm and leg and she is going to be discharged home today due to outpatient followup with Dr. Boston for treatment for her MS. The patient is also going to be continued with physical therapy. She does not wish to go to rehab again and to wish to go home as she has young children. PHYSICAL EXAMINATION: VITAL SIGNS: Temperature is 98.1, pulse of 46, blood pressure is 113/70, respirations are 20. GENERAL: The patient is lying in bed, flat, comfortable. HEENT: No oral lesion. Anicteric sclerae. Moist mucosa. NECK: No JVD, adenopathy, or thyromegaly. CARDIOVASCULAR: S1 and S2, regular. No murmurs, rubs, or gallops. LUNGS: Clear to auscultation bilaterally. No wheeze, rales, or rhonchi. ABDOMEN: Bowel sounds are positive, soft, nontender and nondistended. EXTREMITIES: No cyanosis, clubbing or edema. LABORATORY DATA: White count of 8.1, hemoglobin 11.7. Creatinine 0.8. ASSESSMENT: 1. Acute multiple sclerosis flare. 2. Nephrolithiasis. 3. Asthma. 4. Obese with body mass index of 30. PLAN: The patient is currently comfortable. She is on regular diet. The patient is finished with her IV Solu-Medrol. She is on gabapentin for neuropathy. She is on morphine for pain. I will give her oral morphine to take at home. She is on regular diet. CONDITION: Stable. ACTIVITIES: Increase as tolerated. Artie Luna MD
== END 2018-09-26 14:06 | disposition home or self-care (01) | DRG 59 ==
LOC: ED 16:53 → ERH 18:40 → 3RNO 20:24 → OBSVTOIN 09-24 08:29
PROVIDERS: ADMIT Internal Medicine Nephrology; ATTEND Internal Medicine Nephrology
DX: G35 Multiple sclerosis (principal); N39.0 Urinary tract infection, site not specified; G43.909 Migraine, unspecified, not intractable, without status migrainosus; J45.909 Unspecified asthma, uncomplicated; G62.9 Polyneuropathy, unspecified; D64.9 Anemia, unspecified; F17.210 Nicotine dependence, cigarettes, uncomplicated; N20.0 Calculus of kidney; E66.9 Obesity, unspecified; Z68.30 Body mass index [BMI] 30.0-30.9, adult

== ENCOUNTER 2018-10-02 12:02 | Inpatient (IN) | payer OTHER ==
[2018-10-02 12:05] VITALS: BMI 25.9
[2018-10-02] MEDS ORDERED: methylPREDNISolone 1 GM in Sodium Chloride 0.9% 250 ML IV ONE (12:51)
--- NOTE | 2018-10-02 12:54 | ED PDOC ---
Arrival/HPI - General Chief Complaint: Pain, Chronic Time Seen by Provider: 10/02/18 12:35 Historian: Patient - History of Present Illness Narrative History of Present Illness (Text): 10/02/18 12:50 A 28 year old female, whose past medical history includes asthma, nephrolithiasis, dyspepsia, multiple sclerosis, and migraines, presents to the emergency department for an evaluation of right sided weakness/numbness consistent with her MS flare ups since last night. Patient reports persistent weakness to the right side of her face, arm, and leg. Patient notes she is not currently on any MS medication but states she is taking gabapentin for her pain. Patient notes to also experiencing a headache earlier today to which she took Aleve for the pain. Patient reports this is her 3rd MS flare up since her diagnosis. Patient denies any fever, chills, urinary symptoms, or any other complaints. PMD: Dr. Luna Time/Duration: Other (last night) Symptom Onset: Gradual Symptom Course: Unchanged Activities at Onset: Light Context: Home Past Medical History - Provider Review Nursing Documentation Reviewed: Yes - Infectious Disease Hx of Infectious Diseases: None - Tetanus Immunization Tetanus Immunization: Unknown - Cardiac Hx Cardiac Disorders: No - Pulmonary Hx Respiratory Disorders: No - Neurological Hx Neurological Disorder: Yes Other/Comment: Multiple Sclerosis - HEENT Hx HEENT Disorder: Yes Other/Comment: Wears glasses - Renal Hx Kidney Stones: Yes Other/Comment: Stents due to stones - Endocrine/Metabolic Hx Endocrine Disorders: No - Hematological/Oncological Hx Blood Disorders: No - Integumentary Hx Dermatological Disorder: No - Musculoskeletal/Rheumatological Hx Falls: No Hx Unsteady Gait: Yes - Gastrointestinal Hx Gastroesophageal Reflux: Yes - Genitourinary/Gynecological Hx Genitourinary Disorders: No - Psychiatric Hx Psychophysiologic Disorder: No Hx Substance Use: No - Surgical History Hx Cholecystectomy: Yes - Anesthesia Hx Anesthesia: Yes Hx Anesthesia Reactions: No Hx Malignant Hyperthermia: No - Suicidal Assessment Feels Threatened In Home Enviroment: No Family/Social History - Physician Review Nursing Documentation Reviewed: Yes Family/Social History: No Known Family HX Smoking Status: Light Smoker < 10 Cigarettes Daily Hx Alcohol Use: No Hx Substance Use: No Hx Substance Use Treatment: No Allergies/Home Meds Allergies/Adverse Reactions: Allergies No Known Allergies Allergy (Verified 08/20/18 21:20) Home Medications: Home Meds Medication Instructions Recorded Confirmed Gabapentin [Neurontin] 400 mg PO TID 09/23/18 10/02/18 Review of Systems - Physician Review All systems were reviewed & negative as marked: Yes - Review of Systems Constitutional: absent: Fevers, Other (chills) Genitourinary Female: absent: Urine Output Changes Neurological: Headache, Facial Droop (right sided facial droop), Other (right sided weakness and numbness) Physical Exam Vital Signs Reviewed: Yes Vital Signs Temp Pulse Resp BP Pulse Ox 10/02/18 12:03 99.8 F H 93 H 18 106/72 97 Temperature: Febrile Blood Pressure: Normal Pulse: Tachycardic Respiratory Rate: Normal Appearance: Positive for: Well-Appearing Mental Status: Positive for: Alert and Oriented X 3 - Systems Exam Head: Present: Atraumatic Pupils: Present: PERRL Extroacular Muscles: Present: EOMI Neck: Present: Normal Range of Motion. No: Meningeal Signs Respiratory/Chest: Present: Clear to Auscultation, Good Air Exchange. No: Respiratory Distress, Accessory Muscle Use Cardiovascular: Present: Regular Rate and Rhythm, Normal S1, S2. No: Murmurs Abdomen: No: Tenderness, Distention, Peritoneal Signs Upper Extremity: Present: Normal Inspection. No: Cyanosis, Edema Lower Extremity: Present: Normal Inspection. No: Edema Neurological: Present: GCS=15, CN II-XII Intact, Speech Normal, Other (right sided facial droop). No: Motor Func Grossly Intact (decreased mototr, 3/5 mo bility to upper and lower extremity), Normal Sensory Function (decreased sensation to right face, righ upper and lower extremity) Skin: Present: Warm, Dry, Normal Color. No: Rashes Psychiatric: Present: Alert, Oriented x 3, Normal Insight, Normal Concentration Medical Decision Making ED Course and Treatment: 10/02/18 12:57 Impression: 28 year old female presenting to the emergency department for evaluation of right sided weakness/numbness consistent with her MS flare ups. Plan: -- CMP -- CBC -- Solumedrol -- IV fluids -- Urine culture -- Urinalysis -- Reassess and disposition Prior Visits: Notes and results from previous visits were reviewed. Patient was last seen in the emergency department on 09/23/18 for similar symptoms with an evaluation of right sided weakness/numbness consistent with her MS flares and a UTI. Patient was admitted for further observation. Progress Notes: 10/02/18 14:50 Upon re-evaluation, patient states she feels slightly better but is still unable to walk. 10/02/18 15:[address] Luna who accepts patient for admission and requests Dr. Boston for consult. - Scribe Statement The provider has reviewed the documentation as recorded by the Vidaibirwin Palafox All medical record entries made by the Scribirwin were at my direction and personally dictated by me. I have reviewed the chart and agree that the record accurately reflects my personal performance of the history, physical exam, medical decision making, and the department course for this patient. I have also personally directed, reviewed, and agree with the discharge instructions and disposition. Disposition/Present on Arrival - Present on Arrival Any Indicators Present on Arrival: No History of DVT/PE: No History of Uncontrolled Diabetes: No Urinary Catheter: No History of Decub. Ulcer: No History Surgical Site Infection Following: None - Disposition Have Diagnosis and Disposition been Completed?: Yes Diagnosis: Exacerbation of multiple sclerosis Disposition: HOSPITALIZED Disposition Time: 15:14 Patient Plan: Admission Condition: STABLE
[2018-10-02] MEDS ORDERED: Morphine 4 mg/ml ISec IVP STA (13:03)
[2018-10-02] MEDS: Sodium Chloride 0.9% 1,000 ML IV SCH (13:33)
[2018-10-02 13:53] LABS: BASO # 0.03 K/mm3 (0.0-2.0); BASO % 0.3 % (0.0-3.0); EOS # 0.2 (0.0-0.7); EOS % 1.6 % (1.5-5.0); HEMOGLOBIN 12.1 g/dL (12.0-16.0); LYMPH # 2.5 (1.2-3.4); LYMPH % 21.6 % (22.0-35.0); MEAN CELL VOLUME 80.5 fl (80.0-105.0); MEAN CORPUSCULAR HEMOGLOBIN 25.7 pg (25.0-35.0); MEAN CORPUSCULAR HGB CONC 31.9 g/dl (31.0-37.0); MEAN PLATELET VOLUME 9.5 fl (7.0-11.0); MONO # 0.8 (0.1-0.6); MONO % 6.5 % (1.0-6.0); RBC 4.71 10^6/uL (3.5-6.1); RED CELL DISTRIBUTION WIDTH 25.8 % (11.5-14.5); WHITE BLOOD COUNT 11.5 10^3/uL (4.5-11.0)
[2018-10-02 14:15] LABS: ALB/GLOB RATIO 1.2 (1.1-1.8); ALT/SGPT < 6 U/L (7-56); AST/SGOT 23 U/L (14-36); BLOOD UREA NITROGEN 17 mg/dL (7-21); CALCIUM 9.2 mg/dL (8.4-10.5); GFR NON-AFRICAN AMERICAN > 60
[2018-10-02] MEDS: Morphine 4 mg/ml ISec IVP PRN (18:58)
[2018-10-03] MEDS: Morphine 4 mg/ml ISec IVP PRN ×4 (02:29→20:31)
[2018-10-03] MEDS: Sodium Chloride 0.9% 1,000 ML IV SCH ×3 (05:13→19:00)
--- NOTE | 2018-10-03 15:15 | CON ---
DATE: 10/03/2018 NEUROLOGY CONSULTATION CHIEF COMPLAINT: Evaluate for possible MS exacerbation. HISTORY OF PRESENT ILLNESS: This is a 28-year-old woman history of migraines, history of multiple sclerosis who presented for worsening right-sided weakness and numbness which she concerned her MS flare. This is not fully much of a flare. It is a continuation of underlying multiple sclerosis. Her recent MRI on 08/21/2018 showed numerous demyelinating plaques identified primarily at the bifrontal and parietal and mid corpus callosum area and the left upper brain stem, but no active plaque enhancement. She has multiple admissions for IV Solu-Medrol. MRI of the C-spine showed no evidence of any active plaque enhancement or demyelinating disease at that time. Her disease modifying therapy is currently been appealed and re-authorized as an outpatient and therefore need to follow me as an outpatient. PAST MEDICAL HISTORY: Migraines, GERD, dyspepsia and MS. FAMILY HISTORY: Noncontributory. SOCIAL HISTORY: No illicit drug use, smoking, or EtOH abuse. REVIEW OF SYSTEMS: A 14-point review of systems is negative except as per the HPI. MEDICATIONS: Reviewed by nurses' reconciliation sheet. LABORATORY DATA: No new labs done today. PHYSICAL EXAMINATION GENERAL: The patient seen up in bed and no acute distress. VITAL SIGNS: Temperature 98.1, pulse rate of 66, blood pressure 100/67, respiratory rate 18 and oxygen saturation 99% on room air. HEENT: Head is atraumatic, normocephalic. PERRLA. Extraocular muscles are intact. NECK: Supple. No JVD. No adenopathy noted. LUNGS: Clear to auscultation. No adventitious sounds. HEART: S1 and S2. Normal rate and rhythm. No murmurs, rubs or gallops. ABDOMEN: Soft, nontender and nondistended. Bowel sounds are present. EXTREMITIES: No clubbing. No cyanosis. Peripheral pulses 2+ felt bilaterally. NEUROLOGIC: The patient is alert and oriented to person, place, month, and year. Speech is fluent without any errors. Cranial nerves II through XII are intact. Motor exam; moves all extremities equally, and has right-sided upper and lower extremity edema, weakness, left side is intact. Sensory exam; light touch and pinprick, proprioception, and vibration are intact. DTRs are 2+ throughout and brisk at both knees and ankles. Toes are upgoing bilaterally. Coordination; [id number] is intact. No dysmetria noted. Gait is deferred for now. IMPRESSION: Multiple sclerosis with recent MRI on 08/31/2018 showing numerous demyelinating plaques identified primarily at the bilateral frontal and parietal and mid corpus callosum as well as left upper brain stem, but no active plaque enhancement. An MRI of the C-spine showed no evidence of any active plaque enhancement as well. This is not a true multiple sclerosis exacerbation rather than the continuation of her underlying disease clinical presentation. PLAN: 1. We will recommend to followup with disease modifying agent and will be done as an outpatient. 2. Vitamin D3 at 5000 international units p.o. daily for fatigue. 3. Outpatient physical and occupational therapy. 4. Right-sided weakness. 5. There is no need for readmissions for multiple sclerosis exacerbation given that this is discontinuation of underlying constellation of her symptoms of having MS rather than acute at this time. Thank you for this consult. Leon Boston MD
[2018-10-03] MEDS: MethylPREDNISolone 40 mg Vial IV SCH (18:38)
--- NOTE | 2018-10-04 00:04 | HP ---
DATE OF EXAM: 10/03/2018 HISTORY OF PRESENT ILLNESS: The patient is 28-year-old female who came to emergency room with right-sided weakness, right facial droop. She states when she woke up, she did not feel right. The patient is a known case of multiple sclerosis, under care of Dr. Leon Boston in the past. The patient was discharged on 09/26. Denies any loss of consciousness. No history of seizure like activity. The patient got confirmed her facial asymmetry, so she came to ER for further evaluation. PAST MEDICAL HISTORY: Significant for: 1. Multiple sclerosis that was diagnosed in 2017. 2. History of asthma. 3. She states her usual baseline is right-sided weakness; however, she manage to and can walk small distance. 4. Her past medical history is also significant for asthma. 5. Nephrolithiasis. 6. Chronic migraine headaches. PAST SURGICAL HISTORY: Significant for ureter stent placement and history of abdominoplasty in 2013. SOCIAL HISTORY: She has 2 children, she lives with her daughter and she does have history of smoking. ALLERGIES: SHE DOES NOT HAVE ANY KNOWN ALLERGIES. MEDICATIONS: At home, she is on gabapentin. She is Morphine sulfate. PHYSICAL EXAMINATION: GENERAL: She is awake, alert and able to communicate. She has right facial droop, right-sided weakness. VITAL SIGNS: She is afebrile. Pulse 66, respirations 18 and blood pressure 100/60. LUNGS: Bilateral fair airflow. No rhonchi or crackle. HEART: S1 and S2, audible. ABDOMEN: Soft and nontender. No rebound. No guarding. NEUROLOGIC: She is awake and alert. She has right-sided weakness. Her motor and right upper and lower extremities 0/5 and however left side is 1/5. LABORATORY DATA: WBC 11.5, hemoglobin 12, hematocrit 37 and platelet 330. Chemistry: Sodium 140, potassium 4.1, chloride 106, CO2 of 25, BUN 17, creatinine 0.8 and blood sugar of 106. The patient is recently had MRI done on 09/23 that shows extensive demyelinating disease and periventricular and subcortical white matter of both hemisphere. X-ray of chest; no acute findings. ASSESSMENT: 1. Exacerbation of multiple sclerosis. 2. Neuropathy. 3. History of asthma. PLAN: Currently, the patient is on IV fluid. She is on gabapentin. She is on analgesic. We will start her on Solu-Medrol. Awaiting neuro input. Manju Fajardo MD
[2018-10-04] MEDS: Sodium Chloride 0.9% 1,000 ML IV SCH ×2 (03:04→22:57)
[2018-10-04] MEDS: Morphine 4 mg/ml ISec IVP PRN ×5 (03:04→21:07)
[2018-10-04] MEDS: MethylPREDNISolone 40 mg Vial IV SCH ×5 (05:33→23:46)
[2018-10-04] MEDS: Pantoprazole 40 mg EC Tab PO SCH (07:13)
[2018-10-04 08:54] LABS: LYMPH # 1.1 (1.2-3.4); MONO # 0.2 (0.1-0.6); RBC 3.99 10^6/uL (3.5-6.1)
[2018-10-04 08:59] LABS: MEAN CORPUSCULAR HEMOGLOBIN 25.3 pg (25.0-35.0); MEAN CORPUSCULAR HGB CONC 30.9 g/dl (31.0-37.0); MEAN PLATELET VOLUME 9.6 fl (7.0-11.0); PLATELET COUNT 288 10^3/uL (120.0-450.0); WHITE BLOOD COUNT 17.7 10^3/uL (4.5-11.0)
[2018-10-04 09:00] LABS: HEMOGLOBIN 10.2 g/dL (12.0-16.0)
[2018-10-04 09:14] LABS: ALB/GLOB RATIO 1.2 (1.1-1.8); ALBUMIN 3.2 g/dL (3.0-4.8); ALT/SGPT 7 U/L (7-56); AST/SGOT 19 U/L (14-36); BLOOD UREA NITROGEN 11 mg/dL (7-21); CALCIUM 8.7 mg/dL (8.4-10.5); GFR NON-AFRICAN AMERICAN > 60
[2018-10-04 10:20] LABS: LYMPHOCYTE 5 % (22.0-35.0); NEUTROPHIL 95 % (50.0-70.0); PLATELET ESTIMATE NORMAL (NORMAL)
--- NOTE | 2018-10-04 17:44 | CP.PCM.HP ---
Past Patient History - Infectious Disease Hx of Infectious Diseases: None - Tetanus Immunizations Tetanus Immunization: Unknown - Past Medical History & Family History Past Medical History?: Yes - Past Social History Smoking Status: Never Smoked - CARDIAC Hx Cardiac Disorders: No - PULMONARY Hx Respiratory Disorders: No - NEUROLOGICAL Hx Neurological Disorder: Yes Other/Comment: Multiple Sclerosis - HEENT Hx HEENT Problems: Yes Other/Comment: Wears glasses - RENAL Hx Kidney Stones: Yes Other/Comment: Stents due to stones - ENDOCRINE/METABOLIC Hx Endocrine Disorders: No - HEMATOLOGICAL/ONCOLOGICAL Hx Blood Disorders: No - INTEGUMENTARY Hx Dermatological Problems: No - MUSCULOSKELETAL/RHEUMATOLOGICAL Hx Falls: Yes - GASTROINTESTINAL Hx Gastroesophageal Reflux: Yes - GENITOURINARY/GYNECOLOGICAL Hx Genitourinary Disorders: No - PSYCHIATRIC Hx Psychophysiologic Disorder: No Hx Substance Use: No - SURGICAL HISTORY Hx Cholecystectomy: Yes - ANESTHESIA Hx Anesthesia: Yes Hx Anesthesia Reactions: No Hx Malignant Hyperthermia: No Meds Allergies/Adverse Reactions: Allergies Allergy/AdvReac Type Severity Reaction Status Date / Time No Known Allergies Allergy Verified 08/20/18 21:20 Results - Vital Signs Recent Vital Signs: Last Vital Signs Temp 97.5 F L 10/04/18 08:54 Pulse 55 L 10/04/18 08:54 Resp 18 10/04/18 08:54 BP 105/66 10/04/18 08:54 Pulse Ox 95 10/04/18 08:54 - Labs Result Diagrams: 10/04/18 08:30 10/04/18 08:30 Labs: Laboratory Results - last 24 hr 10/04/18 10/04/18 08:30 08:30 WBC 17.7 H D RBC 3.99 Hgb 10.2 L Hct 32.7 L MCV 82.0 MCH 25.3 MCHC 30.9 L Plt Count 288 MPV 9.6 Neut % (Auto) 93.0 H Lymph % (Auto) 6.0 L Charles % (Auto) 1.0 Eos % (Auto) 0.0 L Baso % (Auto) 0.0 Lymph # (Auto) 1.1 L Charles # (Auto) 0.2 Eos # (Auto) 0.0 Baso # (Auto) 0.00 Absolute Neuts (auto) 16.48 H Neutrophils % (Manual) 95 H Lymphocytes % (Manual) 5 L Monocytes % (Manual) TEST NOT PERFORMED Platelet Evaluation Normal Sodium 142 Potassium 4.2 Chloride 112 H Carbon Dioxide 22 Anion Gap 11 BUN 11 Creatinine 0.7 Est GFR ( Amer) > 60 Est GFR (Non-Af Amer) > 60 Random Glucose 114 H Calcium 8.7 Total Bilirubin 0.2 AST 19 ALT 7 Alkaline Phosphatase 45 Total Protein 6.0 Albumin 3.2 Globulin 2.8 Albumin/Globulin Ratio 1.2
--- NOTE | 2018-10-04 17:56 | CP.PCM.PN ---
<Kirsty Saldivar - Last Filed: 10/04/18 17:45> Subjective - Date & Time of Evaluation Date of Evaluation: 10/04/18 Time of Evaluation: 09:00 - Subjective Subjective: Progress note for Dr. Bueno Patient was seen and examined at bedside. Patient continues to experience right sided weakness of face, arm and leg. Patient denied fever, chills, shortness of breath, dysphagia, abdominal pains, nausea, vomiting, chest pains, diarrhea, c onstipation, or dysuria. Objective - Vital Signs/Intake and Output Vital Signs (last 24 hours): Temp Pulse Resp BP Pulse Ox 97.5 F L 55 L 18 105/66 95 10/04/18 08:54 10/04/18 08:54 10/04/18 08:54 10/04/18 08:54 10/04/18 08:54 Intake and Output: 10/04/18 10/04/18 06:59 18:59 Intake Total 240 Balance 240 - Medications Medications: Current Medications Gabapentin (Neurontin) 400 mg PO TID [facility]; Protocol Last Admin: 10/04/18 17:03 Dose: 400 mg Sodium Chloride (Sodium Chloride 0.9%) 1,000 mls @ 100 mls/hr IV .Q10H [facility] Last Admin: 10/04/18 03:04 Dose: 100 mls/hr Methylprednisolone (Solu-Medrol) 40 mg IV Q6 [facility] Last Admin: 10/04/18 17:03 Dose: 40 mg Morphine Sulfate (Morphine) 4 mg IVP Q4H PRN PRN Reason: Pain, severe (8-10) Last Admin: 10/04/18 17:02 Dose: 4 mg Pantoprazole Sodium (Protonix Ec Tab) 40 mg PO 0630 [facility] Last Admin: 10/04/18 07:13 Dose: 40 mg - Labs Labs: 10/04/18 08:30 10/04/18 08:30 - Constitutional Appears: No Acute Distress - Head Exam Head Exam: ATRAUMATIC, NORMAL INSPECTION, NORMOCEPHALIC - Eye Exam Eye Exam: EOMI, Normal appearance, PERRL Pupil Exam: NORMAL ACCOMODATION, PERRL - ENT Exam ENT Exam: Mucous Membranes Moist, Normal Exam - Neck Exam Neck Exam: Full ROM, Normal Inspection. absent: Lymphadenopathy - Respiratory Exam Respiratory Exam: Clear to Ausculation Bilateral, NORMAL BREATHING PATTERN - Cardiovascular Exam Cardiovascular Exam: REGULAR RHYTHM, +S1, +S2. absent: Murmur - GI/Abdominal Exam GI & Abdominal Exam: Soft, Normal Bowel Sounds. absent: Tenderness - Neurological Exam Neuro motor strength exam: Left Upper Extremity: 5, Right Upper Extremity: 3, Left Lower Extremity: 5, Right Lower Extremity: 3 - Psychiatric Exam Psychiatric exam: Normal Affect, Normal Mood - Skin Skin Exam: Dry, Intact, Normal Color, Warm Assessment and Plan - Assessment and Plan (Free Text) Assessment: Multiple Sclerosis Leukocytosis fatigue Migraines Asthma Anemia Plan: Patient is comfortable. Previous MRI imaging from 09/23/2018 showing ex tensive demyelinating disease in the periventricular and subcortical white matter of both hemispheres. Findings appear to be unchanged from previous imaging. No acute intracranial findings. Patient on IV solumedrol and gabapentin for management of patient's underlying MS. Patient is pending authorization of DMARD prescribed by Dr. Boston, Neurologist. Patient to continue vitamin d for fatigue. Leukocytosis likely secondary to steroid therapy.PT for right sided weakness. Will follow up with Dr. Boston outpatient. Patient seen, case and plan discussed with attending, Dr. Luna <Artie Luna S - Last Filed: 10/04/18 21:57> Objective - Vital Signs/Intake and Output Vital Signs (last 24 hours): Temp Pulse Resp BP Pulse Ox 97.5 F L 55 L 18 105/66 95 10/04/18 08:54 10/04/18 08:54 10/04/18 08:54 10/04/18 08:54 10/04/18 08:54 Intake and Output: 10/04/18 10/05/18 18:59 06:59 Intake Total 240 Balance 240 - Medications Medications: Current Medications Gabapentin (Neurontin) 400 mg PO TID [facility]; Protocol Last Admin: 10/04/18 17:03 Dose: 400 mg Sodium Chloride (Sodium Chloride 0.9%) 1,000 mls @ 100 mls/hr IV .Q10H [facility] Last Admin: 10/04/18 03:04 Dose: 100 mls/hr Methylprednisolone (Solu-Medrol) 40 mg IV Q6 [facility] Last Admin: 10/04/18 17:03 Dose: 40 mg Morphine Sulfate (Morphine) 4 mg IVP Q4H PRN PRN Reason: Pain, severe (8-10) Last Admin: 10/04/18 21:07 Dose: 4 mg Pantoprazole Sodium (Protonix Ec Tab) 40 mg PO 0630 [facility] Last Admin: 10/04/18 07:13 Dose: 40 mg - Labs Labs: 10/04/18 08:30 10/04/18 08:30 Assessment and Plan - Assessment and Plan (Free Text) Assessment: Pt seen and examined by me. I have reviewed the note of the veterinary medical officer and I agree with it. I have discussed the assessment and plan with the resident. I have reviewed the medications and the last labs.
[2018-10-05] MEDS: Morphine 4 mg/ml ISec IVP PRN ×6 (01:13→21:05)
--- NOTE | 2018-10-05 02:08 | PN ---
DATE: 10/04/2018 The patient was seen and examined. I do agree with the note of the medical parasitologist. The patient has MS with right-sided arm and leg weakness. The patient has been on steroids. The patient is being followed by Dr. Boston. She is getting morphine for pain. She says her pain is not well controlled. Her morphine has been changed from every 6 hours to every 4 hours. She is on Neurontin for neuropathy. The patient is on a regular diet. She is getting physical therapy. Artie Luna MD
[2018-10-05] MEDS: Pantoprazole 40 mg EC Tab PO SCH (05:56)
[2018-10-05] MEDS: MethylPREDNISolone 40 mg Vial IV SCH (05:56)
--- NOTE | 2018-10-05 12:32 | CP.PCM.PN ---
<Kirsty Saldivar - Last Filed: 10/05/18 12:29> Subjective - Date & Time of Evaluation Date of Evaluation: 10/05/18 Time of Evaluation: 10:00 - Subjective Subjective: Progress note for Dr. Bueno Patient was seen and examined at bedside. Patient continues to experience right sided weakness of face, arm and leg. Patient also has better pain control today. Patient denied fever, chills, shortness of breath, dysphagia, abdominal pains, nausea, vomiting, chest pains, diarrhea, constipation, or dysuria. Objective - Vital Signs/Intake and Output Vital Signs (last 24 hours): Temp Pulse Resp BP Pulse Ox 98.4 F 60 20 131/75 95 10/05/18 09:20 10/05/18 09:20 10/05/18 09:20 10/05/18 09:20 10/05/18 09:20 Intake and Output: 10/05/18 10/05/18 06:59 18:59 Intake Total 1440 Balance 1440 - Medications Medications: Current Medications Gabapentin (Neurontin) 400 mg PO TID [facility]; Protocol Last Admin: 10/05/18 09:12 Dose: 400 mg Sodium Chloride (Sodium Chloride 0.9%) 1,000 mls @ 100 mls/hr IV .Q10H [facility] Last Admin: 10/04/18 22:57 Dose: 100 mls/hr Methylprednisolone (Solu-Medrol) 40 mg IV Q6 [facility] Last Admin: 10/05/18 05:56 Dose: 40 mg Morphine Sulfate (Morphine) 4 mg IVP Q4H PRN PRN Reason: Pain, severe (8-10) Last Admin: 10/05/18 09:13 Dose: 4 mg Pantoprazole Sodium (Protonix Ec Tab) 40 mg PO 0630 [facility] Last Admin: 10/05/18 05:56 Dose: 40 mg - Labs Labs: 10/04/18 08:30 10/04/18 08:30 - Constitutional Appears: No Acute Distress - Head Exam Head Exam: ATRAUMATIC, NORMAL INSPECTION, NORMOCEPHALIC - Eye Exam Eye Exam: EOMI, Normal appearance, PERRL Pupil Exam: NORMAL ACCOMODATION, PERRL - ENT Exam ENT Exam: Mucous Membranes Moist, Normal Exam - Cardiovascular Exam Cardiovascular Exam: REGULAR RHYTHM, +S1, +S2. absent: Murmur - GI/Abdominal Exam GI & Abdominal Exam: Soft, Normal Bowel Sounds. absent: Tenderness - Neurological Exam Neuro motor strength exam: Left Upper Extremity: 4, Right Upper Extremity: 2/1, Left Lower Extremity: 4, Right Lower Extremity: 2/1 Additional comments: + Foot drop - Psychiatric Exam Psychiatric exam: Normal Affect, Normal Mood - Skin Skin Exam: Dry, Intact, Normal Color, Warm Assessment and Plan - Assessment and Plan (Free Text) Assessment: Multiple Sclerosis Leukocytosis fatigue Migraines Asthma Anemia Plan: Patient is comfortable. Previous MRI imaging from 09/23/2018 showing extensive demyelinating disease in the periventricular and subcortical white matter of both hemispheres. Findings appear to be unchanged from previous imaging. No acute intracranial findings. Patient on IV solumedrol and gabapentin for management of patient's underlying MS. Patient is pending authorization of DMARD prescribed by Dr. Boston, Neurologist. Patient to continue vitamin d for fatigue. Fu iron studies for anemia. Leukocytosis likely secondary to steroid therapy.PT for right sided weakness. Will follow up with Dr. Boston outpatient. Patient agreeable to [facility], will fu with CM. Patient seen, case and plan discussed with attending, Dr. Luna <Artie Luna S - Last Filed: 10/05/18 13:07> Objective - Vital Signs/Intake and Output Vital Signs (last 24 hours): Temp Pulse Resp BP Pulse Ox 98.4 F 60 20 131/75 95 10/05/18 09:20 10/05/18 09:20 10/05/18 09:20 10/05/18 09:20 10/05/18 09:20 Intake and Output: 10/05/18 10/05/18 06:59 18:59 Intake Total 1440 Balance 1440 - Medications Medications: Current Medications Gabapentin (Neurontin) 400 mg PO TID [facility]; Protocol Last Admin: 10/05/18 09:12 Dose: 400 mg Sodium Chloride (Sodium Chloride 0.9%) 1,000 mls @ 100 mls/hr IV .Q10H [facility] Last Admin: 10/04/18 22:57 Dose: 100 mls/hr Methylprednisolone (Solu-Medrol) 40 mg IV Q6 [facility] Last Admin: 10/05/18 05:56 Dose: 40 mg Morphine Sulfate (Morphine) 4 mg IVP Q4H PRN PRN Reason: Pain, severe (8-10) Last Admin: 10/05/18 09:13 Dose: 4 mg Pantoprazole Sodium (Protonix Ec Tab) 40 mg PO 0630 [facility] Last Admin: 10/05/18 05:56 Dose: 40 mg - Labs Labs: 10/04/18 08:30 10/04/18 08:30 Assessment and Plan - Assessment and Plan (Free Text) Assessment: Patient was seen and examined by me. I have reviewed the note of the medical insurance coder and have gone over the plan of care. I agree with the note. I have reviewed the medications and the last labs.
[2018-10-05 13:47] LABS: IRON 90 ug/dL (45-180)
[2018-10-05 13:58] LABS: % IRON SATURATION 25 % (20-55); TOTAL IRON BINDING CAPACITY 360 ug/dL (265-497)
--- NOTE | 2018-10-05 17:52 | PN ---
DATE: 10/05/2018 SUBJECTIVE: The patient has no complaints. The patient was seen and examined. I do agree with the note of the clinical medical assistant. I was involved in the plan of care. The patient has been on IV steroids for her multiple sclerosis flare. She was seen by Dr. Boston. No further interventions needed. This is a third day of IV steroids. The patient is on her asthma medications. She is getting morphine for pain. She is on gabapentin. She is agreeable to go to a subacute rehab facility. The patient is already on Protonix daily and she is getting IV fluids. I will discontinue the patient's IV fluids. I will decrease her IV steroids as well. She is eating well. Pain is controlled. She is not able to grasp her right hand. She has weakness 4/5 power in the right leg. She is found to have difficulty in ambulating. She will await for PT evaluation to be done. Artie Luna MD
[2018-10-05] MEDS ORDERED: MethylPREDNISolone 40 mg Vial IV SCH (22:00)
[2018-10-06] MEDS: Pantoprazole 40 mg EC Tab PO SCH ×2 (05:23→06:50)
[2018-10-06] MEDS: Morphine 4 mg/ml ISec IVP PRN ×5 (05:23→22:20)
[2018-10-06] MEDS: MethylPREDNISolone 40 mg Vial IVP SCH (09:37)
--- NOTE | 2018-10-06 09:50 | CP.PCM.DIS ---
<Kirsty Saldivar - Last Filed: 10/06/18 14:49> Provider - Provider Date of Admission: 10/02/18 15:15 Attending physician: Artie Luna MD Consults: 10/02/18 15:15 Neurology Consult Routine Comment: Consulting Provider: Leon Boston Consulting Physician: Leon Boston Reason for Consult: MS exacerbation Time Spent in preparation of Discharge (in minutes): 45 Hospital Course - Lab Results Lab Results: Micro Results 10/02/18 13:20 Urine,Catheterized Urine Culture - Final Corynebacterium Species Most Recent Lab Values WBC 17.7 10^3/uL (4.5-11.0) H D 10/04/18 08:30 RBC 3.99 10^6/uL (3.5-6.1) 10/04/18 08:30 Hgb 10.2 g/dL (12.0-16.0) L 10/04/18 08:30 Hct 32.7 % (36.0-48.0) L 10/04/18 08:30 MCV 82.0 fl (80.0-105.0) 10/04/18 08:30 MCH 25.3 pg (25.0-35.0) 10/04/18 08:30 MCHC 30.9 g/dl (31.0-37.0) L 10/04/18 08:30 RDW 25.8 % (11.5-14.5) H 10/02/18 13:20 Plt Count 288 10^3/uL (120.0-450.0) 10/04/18 08:30 MPV 9.6 fl (7.0-11.0) 10/04/18 08:30 Neut % (Auto) 93.0 % (50.0-68.0) H 10/04/18 08:30 Lymph % (Auto) 6.0 % (22.0-35.0) L 10/04/18 08:30 [place] % (Auto) 1.0 % (1.0-6.0) 10/04/18 08:30 Eos % (Auto) 0.0 % (1.5-5.0) L 10/04/18 08:30 Baso % (Auto) 0.0 % (0.0-3.0) 10/04/18 08:30 Lymph # (Auto) 1.1 (1.2-3.4) L 10/04/18 08:30 [place] # (Auto) 0.2 (0.1-0.6) 10/04/18 08:30 Eos # (Auto) 0.0 (0.0-0.7) 10/04/18 08:30 Baso # (Auto) 0.00 K/mm3 (0.0-2.0) 10/04/18 08:30 Absolute Neuts (auto) 16.48 (1.4-6.5) H 10/04/18 08:30 Neutrophils % (Manual) 95 % (50.0-70.0) H 10/04/18 08:30 Lymphocytes % (Manual) 5 % (22.0-35.0) L 10/04/18 08:30 Monocytes % (Manual) TEST NOT PERFORMED 10/04/18 08:30 Platelet Evaluation Normal (NORMAL) 10/04/18 08:30 Sodium 142 mmol/L (132-148) 10/04/18 08:30 Potassium 4.2 mmol/L (3.6-5.0) 10/04/18 08:30 Chloride 112 mmol/L (98-107) H 10/04/18 08:30 Carbon Dioxide 22 mmol/L (21-33) 10/04/18 08:30 Anion Gap 11 (10-20) 10/04/18 08:30 BUN 11 mg/dL (7-21) 10/04/18 08:30 Creatinine 0.7 mg/dl (0.7-1.2) 10/04/18 08:30 Est GFR ( Amer) > 60 10/04/18 08:30 Est GFR (Non-Af Amer) > 60 10/04/18 08:30 Random Glucose 114 mg/dL (70-110) H 10/04/18 08:30 Calcium 8.7 mg/dL (8.4-10.5) 10/04/18 08:30 Iron 90 ug/dL (45-180) 10/05/18 13:20 TIBC 360 ug/dL (265-497) 10/05/18 13:20 % Saturation 25 % (20-55) 10/05/18 13:20 Total Bilirubin 0.2 mg/dL (0.2-1.3) 10/04/18 08:30 AST 19 U/L (14-36) 10/04/18 08:30 ALT 7 U/L (7-56) 10/04/18 08:30 Alkaline Phosphatase 45 U/L (38-126) 10/04/18 08:30 Total Protein 6.0 g/dL (5.8-8.3) 10/04/18 08:30 Albumin 3.2 g/dL (3.0-4.8) 10/04/18 08:30 Globulin 2.8 gm/dL 10/04/18 08:30 Albumin/Globulin Ratio 1.2 (1.1-1.8) 10/04/18 08:30 - Hospital Course Hospital Course: 28 year old female with past medical history significant for asthma, nephrolithiasis, dyspepsia, migraines and Multiple Sclerosis who presented to [facility] ED complaining of recurrence of right sided facial numbness and right sided weakness likely exacerbation of her underlying MS. Patient indicates that she was recently admitted to [facility] for similar symptoms. Upon discharge she followed up with Neurologist, Dr. Boston, however there is a delay in authorizing her medications and within a couple days of discharge from most recent admission, experienced a recurrence of MS symptoms. Patient is comfortable. Previous MRI imaging from 09/23/2018 showing extensive demyelinating disease in the periventricular and subcortical white matter of both hemispheres. Findings appear to be unchanged from previous imaging. No acute intracranial findings. Patient on IV solumedrol and gabapentin for management of patient's underlying MS. Patient is pending authorization of DMARD prescribed by Dr. Boston, Neurologist. Patient to continue vitamin d for fatigue. Leukocytosis likely secondary to steroid therapy. PT for right sided weakness, recommended acute rehab with [facility]. Will follow up with Dr. Boston outpatient. Discharge Exam - Head Exam Head Exam: ATRAUMATIC, NORMAL INSPECTION, NORMOCEPHALIC - Eye Exam Eye Exam: EOMI, Normal appearance, PERRL Pupil Exam: NORMAL ACCOMODATION, PERRL - ENT Exam ENT Exam: Mucous Membranes Moist - Respiratory Exam Respiratory Exam: Clear to PA & Lateral, NORMAL BREATHING PATTERN, UNREMARKABLE - Cardiovascular Exam Cardiovascular Exam: REGULAR RHYTHM, +S1, +S2 - GI/Abdominal Exam GI & Abdominal Exam: Normal Bowel Sounds, Soft. absent: Tenderness - Back Exam Back exam: paraspinal tenderness - Neurological Exam Neurological exam: Alert, CN II-XII Intact, Oriented x3 Additional comments: Rt UE 2+/5 Rt LE 2+/5 + foot drop rt foot - Psychiatric Exam Psychiatric exam: Anxious - Skin Skin Exam: Dry, Intact, Normal Color, Warm Discharge Plan - Follow Up Plan Condition: STABLE Disposition: REHAB FACILITY/REHAB UNIT Additional Instructions: 1. Patient to continue care at Acute rehab: [facility] 2. Continue orders as ordered <Artie Luna - Last Filed: 10/06/18 15:06> Provider - Provider Date of Admission: 10/02/18 15:15 Attending physician: Artie Luna MD Consults: 10/02/18 15:15 Neurology Consult Routine Comment: Consulting Provider: Leon Boston Consulting Physician: Leon Boston Reason for Consult: MS exacerbation Hospital Course - Lab Results Lab Results: Micro Results 10/02/18 13:20 Urine,Catheterized Urine Culture - Final Corynebacterium Species Most Recent Lab Values WBC 17.7 10^3/uL (4.5-11.0) H D 10/04/18 08:30 RBC 3.99 10^6/uL (3.5-6.1) 10/04/18 08:30 Hgb 10.2 g/dL (12.0-16.0) L 10/04/18 08:30 Hct 32.7 % (36.0-48.0) L 10/04/18 08:30 MCV 82.0 fl (80.0-105.0) 10/04/18 08:30 MCH 25.3 pg (25.0-35.0) 10/04/18 08:30 MCHC 30.9 g/dl (31.0-37.0) L 10/04/18 08:30 RDW 25.8 % (11.5-14.5) H 10/02/18 13:20 Plt Count 288 10^3/uL (120.0-450.0) 10/04/18 08:30 MPV 9.6 fl (7.0-11.0) 10/04/18 08:30 Neut % (Auto) 93.0 % (50.0-68.0) H 10/04/18 08:30 Lymph % (Auto) 6.0 % (22.0-35.0) L 10/04/18 08:30 [place] % (Auto) 1.0 % (1.0-6.0) 10/04/18 08:30 Eos % (Auto) 0.0 % (1.5-5.0) L 10/04/18 08:30 Baso % (Auto) 0.0 % (0.0-3.0) 10/04/18 08:30 Lymph # (Auto) 1.1 (1.2-3.4) L 10/04/18 08:30 [place] # (Auto) 0.2 (0.1-0.6) 10/04/18 08:30 Eos # (Auto) 0.0 (0.0-0.7) 10/04/18 08:30 Baso # (Auto) 0.00 K/mm3 (0.0-2.0) 10/04/18 08:30 Absolute Neuts (auto) 16.48 (1.4-6.5) H 10/04/18 08:30 Neutrophils % (Manual) 95 % (50.0-70.0) H 10/04/18 08:30 Lymphocytes % (Manual) 5 % (22.0-35.0) L 10/04/18 08:30 Monocytes % (Manual) TEST NOT PERFORMED 10/04/18 08:30 Platelet Evaluation Normal (NORMAL) 10/04/18 08:30 Sodium 142 mmol/L (132-148) 10/04/18 08:30 Potassium 4.2 mmol/L (3.6-5.0) 10/04/18 08:30 Chloride 112 mmol/L (98-107) H 10/04/18 08:30 Carbon Dioxide 22 mmol/L (21-33) 10/04/18 08:30 Anion Gap 11 (10-20) 10/04/18 08:30 BUN 11 mg/dL (7-21) 10/04/18 08:30 Creatinine 0.7 mg/dl (0.7-1.2) 10/04/18 08:30 Est GFR ( Amer) > 60 10/04/18 08:30 Est GFR (Non-Af Amer) > 60 10/04/18 08:30 Random Glucose 114 mg/dL (70-110) H 10/04/18 08:30 Calcium 8.7 mg/dL (8.4-10.5) 10/04/18 08:30 Iron 90 ug/dL (45-180) 10/05/18 13:20 TIBC 360 ug/dL (265-497) 10/05/18 13:20 % Saturation 25 % (20-55) 10/05/18 13:20 Ferritin 54.6 ng/mL 10/05/18 13:20 Total Bilirubin 0.2 mg/dL (0.2-1.3) 10/04/18 08:30 AST 19 U/L (14-36) 10/04/18 08:30 ALT 7 U/L (7-56) 10/04/18 08:30 Alkaline Phosphatase 45 U/L (38-126) 10/04/18 08:30 Total Protein 6.0 g/dL (5.8-8.3) 10/04/18 08:30 Albumin 3.2 g/dL (3.0-4.8) 10/04/18 08:30 Globulin 2.8 gm/dL 10/04/18 08:30 Albumin/Globulin Ratio 1.2 (1.1-1.8) 10/04/18 08:30 - Hospital Course Hospital Course: Pt seen and examined by me. I have reviewed the note of the medical assistant instructor and I agree with it. I have discussed the assessment and plan with the resident. I have reviewed the medications and the last labs.Pt with MS flare. She will need Acute rehab. She has difficulty in gripping with her R hand. She will need continued PT. Steroids are being tapered. She is on Gabapentin for her neuropathy. She is on Morphine for pain.
[2018-10-07] MEDS: Morphine 4 mg/ml ISec IVP PRN ×4 (02:09→15:30)
[2018-10-07] MEDS: Pantoprazole 40 mg EC Tab PO SCH (05:30)
--- NOTE | 2018-10-07 06:31 | CP.PCM.PN ---
Subjective - Date & Time of Evaluation Date of Evaluation: 10/07/18 Time of Evaluation: 06:29 - Subjective Subjective: TBD new bradycardia not on beta fahad m sclerosis tsh trop ekg echo? cardiology consult? nurse to notify dr lamar Objective - Vital Signs/Intake and Output Vital Signs (last 24 hours): Temp Pulse Resp BP Pulse Ox 98 F 69 18 126/79 95 10/06/18 22:40 10/06/18 22:40 10/06/18 22:40 10/06/18 22:40 10/06/18 22:40 Intake and Output: 10/06/18 10/07/18 18:59 06:59 Intake Total 1440 Balance 1440 - Medications Medications: Current Medications Gabapentin (Neurontin) 400 mg PO TID [facility]; Protocol Last Admin: 10/06/18 18:22 Dose: 400 mg Methylprednisolone (Solu-Medrol) 40 mg IVP DAILY [facility] Last Admin: 10/06/18 09:37 Dose: 40 mg Morphine Sulfate (Morphine) 4 mg IVP Q4H PRN PRN Reason: Pain, severe (8-10) Last Admin: 10/07/18 02:09 Dose: 4 mg Pantoprazole Sodium (Protonix Ec Tab) 40 mg PO 0630 [facility] Last Admin: 10/07/18 05:30 Dose: 40 mg - Labs Labs: 10/04/18 08:30 10/04/18 08:30
[2018-10-07 07:52] VITALS: BP 125/65; PULSE 46; RESP 16; TEMP 97.6; O2SAT 96
[2018-10-07 08:18] LABS: BASO # 0.01 K/mm3 (0.0-2.0); BASO % 0.1 % (0.0-3.0); HEMOGLOBIN 10.7 g/dL (12.0-16.0); LYMPH # 3.6 (1.2-3.4); LYMPH % 20.3 % (22.0-35.0); MEAN CELL VOLUME 81.2 fl (80.0-105.0); MEAN CORPUSCULAR HEMOGLOBIN 25.1 pg (25.0-35.0); MEAN CORPUSCULAR HGB CONC 30.9 g/dl (31.0-37.0); MEAN PLATELET VOLUME 9.9 fl (7.0-11.0); MONO # 1.1 (0.1-0.6); MONO % 5.9 % (1.0-6.0); PLATELET COUNT 302 10^3/uL (120.0-450.0); RBC 4.26 10^6/uL (3.5-6.1); WHITE BLOOD COUNT 17.8 10^3/uL (4.5-11.0)
[2018-10-07 08:50] LABS: ALB/GLOB RATIO 1.1 (1.1-1.8); ALBUMIN 2.8 g/dL (3.0-4.8); ALT/SGPT 7 U/L (7-56); AST/SGOT 20 U/L (14-36); BLOOD UREA NITROGEN 23 mg/dL (7-21); CALCIUM 8.4 mg/dL (8.4-10.5); GFR NON-AFRICAN AMERICAN > 60
[2018-10-07] MEDS: MethylPREDNISolone 40 mg Vial IVP SCH (09:37)
--- NOTE | 2018-10-07 11:29 | CARD ---
APPROVED REPORT Date of service: 10/07/2018 EKG Measurement Heart [id number] <Conclusion> Marked sinus bradycardia Abnormal ECG
--- NOTE | 2018-10-07 11:45 | CP.PCM.PN ---
<Kirsty Saldivar - Last Filed: 10/07/18 11:41> Subjective - Date & Time of Evaluation Date of Evaluation: 10/07/18 Time of Evaluation: 07:00 - Subjective Subjective: Progress Note for Dr. Luna Patient seen and examined at bedside. No acute complaints at this time. As per nursing staff, rapid response called on pt overnight due to low HR while sleeping. Patient is doing well. VSS. Patient denied fever, chills, shortness of breath, chest pains, nausea, vomiting, diarrhea, constipation. Objective - Vital Signs/Intake and Output Vital Signs (last 24 hours): Temp Pulse Resp BP Pulse Ox 97.6 F 46 L 16 125/65 96 10/07/18 06:00 10/07/18 06:00 10/07/18 06:00 10/07/18 06:00 10/07/18 06:00 Intake and Output: 10/07/18 10/07/18 06:59 18:59 Intake Total 1440 Balance 1440 - Medications Medications: Current Medications Gabapentin (Neurontin) 400 mg PO TID [facility]; Protocol Last Admin: 10/07/18 09:36 Dose: 400 mg Morphine Sulfate (Morphine) 4 mg IVP Q4H PRN PRN Reason: Pain, severe (8-10) Last Admin: 10/07/18 11:32 Dose: 4 mg Pantoprazole Sodium (Protonix Ec Tab) 40 mg PO 0630 [facility] Last Admin: 10/07/18 05:30 Dose: 40 mg - Labs Labs: 10/07/18 07:00 10/07/18 07:00 - Constitutional Appears: Well - Head Exam Head Exam: ATRAUMATIC, NORMAL INSPECTION, NORMOCEPHALIC - Eye Exam Eye Exam: EOMI, Normal appearance, PERRL Pupil Exam: NORMAL ACCOMODATION, PERRL - ENT Exam ENT Exam: Mucous Membranes Moist, Normal Exam - Neck Exam Neck Exam: Full ROM, Normal Inspection. absent: Lymphadenopathy - Respiratory Exam Respiratory Exam: Clear to Ausculation Bilateral, NORMAL BREATHING PATTERN - Cardiovascular Exam Cardiovascular Exam: REGULAR RHYTHM, +S1, +S2. absent: Murmur - GI/Abdominal Exam GI & Abdominal Exam: Soft, Normal Bowel Sounds. absent: Tenderness - Extremities Exam Extremities Exam: Full ROM, Normal Capillary Refill, Normal Inspection. absent: Joint Swelling, Pedal Edema - Neurological Exam Neuro motor strength exam: Left Upper Extremity: 4, Right Upper Extremity: 3, Left Lower Extremity: 4, Right Lower Extremity: 2/1 - Psychiatric Exam Psychiatric exam: Normal Affect, Normal Mood - Skin Skin Exam: Dry, Intact, Normal Color, Warm Assessment and Plan - Assessment and Plan (Free Text) Assessment: Multiple Sclerosis Leukocytosis fatigue Migraines Asthma Anemia Plan: Patient is comfortable. Previous MRI imaging from 09/23/2018 showing extensive demyelinating disease in the periventricular and subcortical white matter of both hemispheres. Findings appear to be unchanged from previous imaging. No acute intracranial findings. Patient to be transferred to [facility] rehab for further therapy. Patient to FU with PMD and Neurologist Dr. Boston regarding DMARD initiation. <Artie Luna S - Last Filed: 10/07/18 21:41> Objective - Vital Signs/Intake and Output Vital Signs (last 24 hours): Temp Pulse Resp BP Pulse Ox 97.6 F 46 L 16 125/65 96 10/07/18 06:00 10/07/18 06:00 10/07/18 06:00 10/07/18 06:00 10/07/18 06:00 - Labs Labs: 10/07/18 07:00 10/07/18 07:00 Assessment and Plan - Assessment and Plan (Free Text) Assessment: Pt seen and examined by me. I have reviewed the note of the biomedical analytical scientist and I agree with it. I have discussed the assessment and plan with the resident. I have reviewed the medications and the last labs.
--- NOTE | 2018-10-08 03:45 | DS ---
HOSPITAL COURSE: The patient was seen and examined. I do agree with the note of the medical territory manager. I was involved in the plan of care. The patient had multiple sclerosis. We will discontinue the patient's steroids. At this point, she is going for acute rehab at [facility]. The patient has fatigue and migraine headaches, these are stable. Her asthma is stable as well. I did review the note of the medical territory manager. I do agree with it. I was involved in the plan of care. Artie Luna MD
== END 2018-10-07 16:46 | DRG 60 ==
LOC: ED 12:02 → ERH 15:15 → 3RSO 16:15
PROVIDERS: ADMIT Internal Medicine Nephrology; ATTEND Internal Medicine Nephrology
DX: G35 Multiple sclerosis (principal); G62.9 Polyneuropathy, unspecified; G43.909 Migraine, unspecified, not intractable, without status migrainosus; J45.909 Unspecified asthma, uncomplicated; R29.810 Facial weakness; D72.829 Elevated white blood cell count, unspecified; T38.0X5A Adverse effect of glucocorticoids and synthetic analogues, initial encounter; D64.9 Anemia, unspecified; K21.9 Gastro-esophageal reflux disease without esophagitis; R00.1 Bradycardia, unspecified; Z87.442 Personal history of urinary calculi; Z87.891 Personal history of nicotine dependence

== ENCOUNTER 2018-10-29 16:52 | Emergency (ER) | payer OTHER ==
[2018-10-29 16:52] VITALS: BMI 25.9
[2018-10-29 18:06] VITALS: RESP 18; O2SAT 99
--- NOTE | 2018-10-29 18:17 | ED PDOC ---
Arrival/HPI - General Chief Complaint: Eye Problem Time Seen by Provider: 10/29/18 17:02 - History of Present Illness Narrative History of Present Illness (Text): 10/29/18 18:13 Patient is a 28 y/o F with MS, with hx of R sided weakness, secondary to MS, presenting with complaint of MS flare and also complaining of conjunctivitis. Reports that her mother initially had it and then all her children got pink eye. She reports that all her children are currently on drops and antibiotics for pink eye. Reports wears contacts but reports that she is not currently using them. She reports clear watery discharge to b/l eyes. She reports pain opening her eyes. Denies changes in vision. Past Medical History - Infectious Disease Hx of Infectious Diseases: None - Tetanus Immunization Tetanus Immunization: Unknown - Cardiac Hx Cardiac Disorders: No - Pulmonary Hx Respiratory Disorders: No - Neurological Hx Neurological Disorder: Yes Other/Comment: Multiple Sclerosis - HEENT Hx HEENT Disorder: Yes Other/Comment: Wears glasses - Renal Hx Kidney Stones: Yes Other/Comment: Stents due to stones - Endocrine/Metabolic Hx Endocrine Disorders: No - Hematological/Oncological Hx Blood Disorders: No - Integumentary Hx Dermatological Disorder: No - Musculoskeletal/Rheumatological Hx Falls: No Hx Unsteady Gait: Yes - Gastrointestinal Hx Gastroesophageal Reflux: Yes - Genitourinary/Gynecological Hx Genitourinary Disorders: No - Psychiatric Hx Psychophysiologic Disorder: No Hx Substance Use: No - Surgical History Hx Cholecystectomy: Yes - Anesthesia Hx Anesthesia: Yes Hx Anesthesia Reactions: No Hx Malignant Hyperthermia: No - Suicidal Assessment Feels Threatened In Home Enviroment: No Family/Social History Family/Social History: No Known Family HX Smoking Status: Light Smoker < 10 Cigarettes Daily Hx Alcohol Use: No Hx Substance Use: No Hx Substance Use Treatment: No Allergies/Home Meds Allergies/Adverse Reactions: Allergies No Known Allergies Allergy (Verified 08/20/18 21:20) Home Medications: Home Meds Medication Instructions Recorded Confirmed Gabapentin [Neurontin] 400 mg PO TID 09/23/18 10/02/18 Review of Systems - Review of Systems Constitutional: absent: Fatigue, Weight Change, Fevers, Night Sweats Eyes: Other (watery discharge and b/l conjunctival injection). absent: Vision Changes, Photophobia Respiratory: absent: SOB, Cough, Sputum, Wheezing Cardiovascular: absent: Chest Pain Gastrointestinal: absent: Abdominal Pain, Constipation, Diarrhea, Nausea, Food Intolerance Genitourinary Female: absent: Dysuria, Frequency, Hematuria, Urine Output Ling es Musculoskeletal: Arthralgias Neurological: Focal Weakness (R sided weakness from MS). absent: Headache, Dizziness, Gait Changes Psychiatric: absent: Anxiety, Depression Physical Exam Vital Signs Reviewed: Yes Vital Signs Temp Pulse Resp BP Pulse Ox 10/29/18 17:59 98.1 F 94 H 18 133/78 99 Temperature: Afebrile Blood Pressure: Normal Pulse: Regular Respiratory Rate: Normal Appearance: Positive for: Well-Appearing, Non-Toxic, Comfortable Pain Distress: None Mental Status: Positive for: Alert and Oriented X 3 - Systems Exam Head: Present: Atraumatic, Normocephalic Pupils: Present: PERRL Extroacular Muscles: Present: EOMI (no pain with EOM) Conjunctiva: Present: Injected Mouth: Present: Moist Mucous Membranes Nose (Internal): Present: Normal Inspection Neck: Present: Normal Range of Motion Respiratory/Chest: Present: Clear to Auscultation. No: Good Air Exchange, Respiratory Distress, Accessory Muscle Use Cardiovascular: Present: Regular Rate and Rhythm, Normal S1, S2. No: Murmurs Abdomen: No: Tenderness, Distention Upper Extremity: Present: Normal ROM, NORMAL PULSES, Other (4/5 strength to R upper and lower extremity) Lower Extremity: Present: Normal ROM Neurological: Present: GCS=15, CN II-XII Intact, Speech Normal, Gait Normal Psychiatric: Present: Alert, Oriented x 3 Medical Decision Making ED Course and Treatment: 10/29/18 18:28 Patient requesting pill in addition to drops similar to what her children were prescribed. Put tetracaine in eyes and now reporting improvement of pain and able to comfortably open eyes. Instructed not to wear contact and follow-up with Ophtho 10/29/18 18:58 Discussed case w/ Dr. Leon Boston, who states pt does not require admission or repeat MRI; pt's complaints are worsening progression of the disease and admission to hospital will not improve pt's condition. He states pt needs to follow up in outpatient. Pt did not follow-up last week or show up for appt. - Medication Orders Current Medication Orders: Ciprofloxacin (Ciloxan 0.3% Ophth Soln) 1 drop OU Q4 ADÁN Disposition/Present on Arrival - Present on Arrival Any Indicators Present on Arrival: No History of DVT/PE: No History of Uncontrolled Diabetes: No Urinary Catheter: No History of Decub. Ulcer: No History Surgical Site Infection Following: None - Disposition Have Diagnosis and Disposition been Completed?: Yes Diagnosis: Conjunctivitis Disposition: HOME/ ROUTINE Disposition Time: 19:08 Patient Plan: Discharge Condition: GOOD Discharge Instructions (ExitCare): Conjunctivitis ([place]) (DC) Additional Instructions: Take full course of antibiotics. Return to ED if condition worsens. Use drops. Do not use your contact lens. Follow-up with Dr. Boston. Follow-up with eye doctor. Prescriptions: Ciprofloxacin 0.3% [Ciloxan 0.3% Ophth SOLN] 2 drop OS Q2 #1 bottle Clindamycin [Cleocin] 300 mg PO TID #42 cap Referrals: Leon Boston MD [Staff Provider] - Follow up with primary Lew Fowler MD [Staff Provider] - Follow up with primary Forms: [facility] (Spanish)
[2018-10-29] MEDS ORDERED: Ciprofloxacin 0.3% OPTH SOLN OU STA (18:30)
[2018-10-29 19:32] VITALS: BP 131/72; PULSE 89; TEMP 98.2
== END 2018-10-29 19:32 | disposition home or self-care (01) ==
LOC: ED 16:52
DX: H10.9 Unspecified conjunctivitis (principal); G35 Multiple sclerosis; F17.210 Nicotine dependence, cigarettes, uncomplicated
CPT/HCPCS: 81025; 96372; 99283; J1885